=== PATIENT | male | born 1945 | race Caucasian/White ===

== ENCOUNTER → 2022-10-11 08:32 | Outpatient (BNVA) | payer MEDICARE, OTHER, SELFPAY | PROVIDERS: Visit Provider Nurse Practitioner | DX: Z85.038 Personal history of other malignant neoplasm of large intestine (principal) | CPT/HCPCS: 99202 ==

== ENCOUNTER → 2022-10-18 10:08 | Outpatient (BNVA) | payer MEDICARE, OTHER, SELFPAY | PROVIDERS: Visit Provider Internal Medicine | DX: J45.909 Unspecified asthma, uncomplicated (principal); R05.9 Cough, unspecified; G47.33 Obstructive sleep apnea (adult) (pediatric) | CPT/HCPCS: 99202 ==

== ENCOUNTER 2022-12-13 08:16 | Outpatient (REF) | payer MEDICARE, OTHER, SELFPAY ==
--- NOTE | 2022-12-13 09:30 | PFT_ITS ---
FLOWS: 1. FEV1 93% of predicted at 2.40 L. 2. FVC 85% of predicted at 3.08 L. 3. FEV1 to FVC ratio of 0.78. 4. No bronchodilator response. LUNG VOLUMES: 1. Total lung capacity 93% of predicted at 5.84 L. 2. Residual volume 108% of predicted at 2.54 L. 3. Slow vital capacity 84% of predicted at 3.31 L. 4. Expiratory reserve volume 78% of predicted at 0.76 L. 5. Diffusion capacity is normal. IMPRESSION: No obstructive or restrictive ventilatory defect. No bronchodilator response. Essentially normal pulmonary function tests. MD EMERSON Saxena/MODL / [phone]
== END 2022-12-13 08:17 | disposition home or self-care (01) ==
LOC: HO.RESP 08:16
PROVIDERS: PCP Internal Medicine; Visit Provider Internal Medicine
DX: J45.909 Unspecified asthma, uncomplicated (principal); G47.33 Obstructive sleep apnea (adult) (pediatric); F03.90 Unspecified dementia, unspecified severity, without behavioral disturbance, psychotic disturbance, mood disturbance, and anxiety; Z79.899 Other long term (current) drug therapy
CPT/HCPCS: 94060; 94727; 94729; 99212

== ENCOUNTER 2022-12-13 09:30 | Outpatient (AMB) | payer MEDICARE, OTHER, SELFPAY ==
[2022-12-13 09:36] VITALS: BP 144/68; PULSE 64; O2SAT 97; BMI 31.3
--- NOTE | 2022-12-13 09:36 | MHC.OFFVIS ---
Intake Vital Signs 12/13/22 09:36 Height 5 ft 6 in Weight 194 lb 0.108 oz BMI 31.3 BP 144/68 H Blood Pressure Location Lt brachial Position Sitting Pulse 64 Pulse Source Pulse Oximeter Pulse Oximetry (%) 97 Oxygen Delivery Method Room Air Intake Visit Reasons: f/u pft Intake Note: Pt reports his dry cough still coming back and [facility] was supposed to fax a paper over for Luis. They also want his PFT faxed over to PCP, Dr. Crowder. Accompanied by: Spouse Allergies No Known Allergies Allergy (Verified 12/13/22 09:46) Medication List - Last Reconciled 12/13/22 by Yusef Bourne MD cetirizine (Zyrtec) 10 mg PO DAILY PRN Flovent HFA 110 mcg/actuation (fluticasone propionate) 2 puffs inhalation BID 30 days NS fluticasone propionate 44 mcg/actuation 2 puffs inhalation BID memantine 10 mg PO BID rivastigmine 4.6 mg transdermal DAILY Do you need a note to return to daycare/school/sports/work: No HPI f/u pft HPI Details 77 years old very pleasant gentleman is here for follow-up for his cough. Thinking that his cough is most probably as an asthma variant, he will os started on Flovent HFA 1102 puffs b.i.d.. He did not get any rescue inhaler. Most of the talk is done by the because the patient has some dementia and stays relatively quiet and smiling. The say is that his frequency off cough is less , but the attacks of cough still come, and he tends to get exhausted with the cough. The cough usually happens the after he is drinking coffee in the morning. The cough is mostly nonproductive. He came to have pulmonary function test this morning and was seen right after that. COUNT INCLUDES THE [facility] Medical History (Updated 12/13/22 @ 10:11 by Yusef Bourne MD) Allergic rhinitis Cough Surgical History H/O colonoscopy H/O right hemicolectomy Social History Alcohol intake: former Patient Tobacco Use Status: Former Tobacco user Review of Systems Const All systems reviewed & are unremarkable except as noted in HPI and below Eyes Reports no additional complaints ENT Reports nasal congestion and Reports nasal discharge (Intermittent) Card Reports no additional complaints Resp Reports cough (Chronic) GI Reports other (History of colon cancer, resected) Reports no additional complaints Musc Reports no additional complaints Skin/Breast Reports system reviewed and no additional complaints, except as documented Neuro Reports memory loss (Mild dementia) Psych Reports no additional complaints and Reports memory loss (Mild dementia) Endo Reports no additional complaints Petey/Lymph Reports no additional complaints Aller/Immun Reports no additional complaints Physical Exam Vital Signs: Last Vital Signs Pulse 64 12/13/22 09:36 BP 144/68 H 12/13/22 09:36 Pulse Ox 97 12/13/22 09:36 Oxygen Delivery Method Room Air 12/13/22 09:36 BMI result Body Mass Index 31.3 Const General: healthy appearing, comfortable, no acute distress, alert and awake Orientation/consciousness: patient oriented x3 HEENT Head: Yes normal to inspection General nose exam: No nasal polyps present and No nasal discharge present Face and sinus: Yes sinuses nontender Mouth: oropharynx abnormals (Oropharynx is somewhat crowded, Mallampati class 3) Throat: Yes posterior oropharynx normal Eyes General: appearance normal, both eyes and all related structures Neck Neck: Yes normal visual inspection, Yes no lymphadenopathy, Yes trachea midline and Yes no JVD Thyroid: Thyroid normal Chest Chest palpation & inspection: normal inspection of the chest, normal palpation of entire chest wall and no tenderness Resp Other: Percussion note resonant, breath sounds are equal on both sides, no wheezes rhonchi or crepitations are heard. Cardio Palpation: normal PMI Rate: regular rate Rhythm: regular rhythm Heart sounds: Gallop heart sound present and Murmur heart sound present Peripheral pulses: Peripheral pulses 2+ throughout GI Palpation (GI): Soft to palpation, Tenderness to palpation present (GI), No hepatosplenomegaly present and Palpable mass present Auscultation: normal bowel sounds Back/Spine/Pelvis Thoracic/Lumbar Spine: thoracic and lumbar spine normal to inspection Skin General skin exam: no rashes or lesions noted Neuro General: patient oriented x3 and no focal motor deficits Cranial nerves: Yes CN's II-XII intact bilaterally Extrem General: Yes normal to inspection, Yes no clubbing, cyanosis or edema and Yes no calf tenderness Psych Speech and movement: Normal speech and movement present Results Reviewed Results Reviewed: Pulmonary function test is essentially normal. No evidence of obstructive restrictive disorder. FEF 25-75 did improve by 22% after BD therapy, indicating mild bronchospastic defect in small airways. Assessment & Plan Assessment & Plan (1) Cough: Comment: CHRONIC EPISODIC COUGH, MOST LIKELY ALLERGIC COUGH, RELATED TO ALLERGIC RHINITIS/POSTNASAL DISCHARGE. ALSO COULD BE SECONDARY TO ASTHMA VARIANT. PULMONARY FUNCTION TEST IS NORMAL. TX : PROAIR HFA 2 PUFFS Q 4-6 HOURS P.R.N. IF THE COUGH IS PERSISTENT. 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 PROAIR 2 PUFFS Q 4-6 HOURS P.R.N. FOR PERSISTENT BOUTS OF COUGH ( PEAK FLOW METER IS PRESCRIBED ) Code(s): J45.909 - Unspecified asthma, uncomplicated (3) Allergic rhinitis: Comment: THIS PATIENT DOES HAVE MILD ALLERGIC RHINITIS, PRESENTING MOSTLY IN THE FORM OF POSTNASAL DISCHARGE. PER HISTORY IT RESPONDS VERY QUICKLY TO ORAL PREDNISONE. DISCUSSED DID THE TREATMENT PLAN AND ENCOURAGED NOT TO USE PREDNISONE TOO OFTEN. TX ; OKAY TO USE ZYRTEC 10 MG AT NIGHT P.R.N., ALSO ADD FLONASE 2 SPRAY IN EACH NOSTRIL DAILY.( ACCORDING TO IT CAUSED SOME STOMACH UPSET, IF SO HE MAY STOP USING FLONASE ) Code(s): J30.9 - Allergic rhinitis, unspecified (4) MICHELE (obstructive sleep apnea): Comment: PATIENT DOES HAVE HISTORY OF MICHELE FOR MANY YEARS BUT HAS BEEN NON COMPLIANT TO THE USE OF CPAP. LATELY HE IS USING IT ON A NIGHTLY BASIS, AT LEAST FOR A FEW HOURS PER NIGHT. CPAP USAGE BEING MANAGED BY THE [facility] [place]. Code(s): G47.33 - Obstructive sleep apnea (adult) (pediatric) Plan: FOR FOLLOW-UP CARE I HAD RECOMMENDED THAT HE COULD CONTINUE TO FOLLOW-UP WITH HIS PRIMARY CARE PHYSICIAN. BUT THE WOULD FEEL MORE COMFORTABLE IF HE IS FOLLOWED UP BY ME FOR PULMONARY ISSUES. SO WE HAVE SET UP AN APPOINTMENT FOR FOLLOW-UP IN 3 MONTHS Medications: New peak flow meter As directed 1 ea 0RF albuterol sulfate 90 mcg/actuation 2 puffs inhalation Q4-6H PRN 8.5 grams 3RF shortness of breath or wheezing 30 days Changed From Flovent HFA 110 mcg/actuation (fluticasone propionate) administer with spacer 2 puffs inhalation BID 30 days 12 grams 3RF ASTHMA NS To Flovent HFA 110 mcg/actuation (fluticasone propionate) administer with spacer 2 puffs inhalation BID 90 days 12 grams 3RF ASTHMA NS Coding Level of Care Code Est Pt Level 3 (39943) Diagnoses Cough R05.9 Asthma J45.909 Allergic rhinitis J30.9 MICHELE (obstructive sleep apnea) G47.33
== END 2022-12-13 10:02 | disposition home or self-care (01) ==
PROVIDERS: PCP Internal Medicine; Visit Provider Internal Medicine
DX: R05.3 Chronic cough (principal)
CPT/HCPCS: 94060; 94727; 94729; 99213

== ENCOUNTER 2023-03-19 08:57 | Outpatient (AMB) | payer MEDICARE, OTHER, SELFPAY ==
--- NOTE | 2023-03-19 09:09 | MHC.OFFVIS ---
Intake Vital Signs 03/19/23 09:10 Height 5 ft 6 in Weight 197 lb BMI 31.8 BP 140/58 H Blood Pressure Location Lt brachial Position Sitting Pulse 71 Pulse Source Pulse Oximeter Pulse Oximetry (%) 98 Oxygen Delivery Method Room Air Intake Visit Reasons: Dyspnea Intake Note: pt is here for follow up and states the witness of shortness of breath, pt is using the cpap everynight.NEEDS 3 MONTH REFILL ON FLOVENT TO [facility] Should they continue the zyrtec? Medical And Scientific Illustrator Required: No Allergies No Known Allergies Allergy (Verified 03/19/23 09:26) Medication List - Last Reconciled 03/19/23 by Yusef Bourne MD albuterol sulfate 90 mcg/actuation 2 puffs inhalation Q4-6H PRN 30 days cetirizine (Zyrtec) 10 mg PO DAILY PRN Flovent HFA 110 mcg/actuation (fluticasone propionate) 2 puffs inhalation BID 90 days NS memantine 10 mg PO BID peak flow meter As directed rivastigmine 9.5 mg transdermal DAILY Do you need a note to return to daycare/school/sports/work: No HPI Dyspnea HPI Details 77 years old gentleman comes along with his . He is very pleasant,, has mild healed dementia, is supported by his . Both are very happy about his health status. He has only occasional bouts of cough and had to use albuterol only bout twice in the last 4 months. He uses Flovent-1102 puffs b.i.d. with the help of his spacer and it has made it much easier. Luckily he has had no acute respiratory infection. Nasal congestion off and on, mild, and citrus in 10 mg on a p.r.n. basis is helping. He uses CPAP very regularly every night and sleeps good. [facility] Medical History Allergic rhinitis Cough Surgical History H/O colonoscopy H/O right hemicolectomy Social History Alcohol intake: former Patient Tobacco Use Status: Former Tobacco user Review of Systems Const All systems reviewed & are unremarkable except as noted in HPI and below Eyes Reports no additional complaints ENT Reports nasal congestion and Reports nasal discharge (Intermittent) Card Reports no additional complaints Resp Reports cough (Chronic) GI Reports other (History of colon cancer, resected) Reports no additional complaints Musc Reports no additional complaints Skin/Breast Reports system reviewed and no additional complaints, except as documented Neuro Reports memory loss (Mild dementia) Psych Reports no additional complaints and Reports memory loss (Mild dementia) Endo Reports no additional complaints Petey/Lymph Reports no additional complaints Aller/Immun Reports no additional complaints Physical Exam Vital Signs: Last Vital Signs Pulse 71 03/19/23 09:10 BP 140/58 H 03/19/23 09:10 Pulse Ox 98 03/19/23 09:10 Oxygen Delivery Method Room Air 03/19/23 09:10 BMI result Body Mass Index 31.8 Const General: healthy appearing, comfortable, no acute distress, alert and awake Orientation/consciousness: patient oriented x3 HEENT Head: Yes normal to inspection General nose exam: No nasal polyps present and No nasal discharge present Face and sinus: Yes sinuses nontender Mouth: oropharynx abnormals (Oropharynx is somewhat crowded, Mallampati class 3) Throat: Yes posterior oropharynx normal Eyes General: appearance normal, both eyes and all related structures Neck Neck: Yes normal visual inspection, Yes no lymphadenopathy, Yes trachea midline and Yes no JVD Thyroid: Thyroid normal Chest Chest palpation & inspection: normal inspection of the chest, normal palpation of entire chest wall and no tenderness Resp Other: Percussion note resonant, breath sounds are equal on both sides, no wheezes rhonchi or crepitations are heard. Cardio Palpation: normal PMI Rate: regular rate Rhythm: regular rhythm Heart sounds: Gallop heart sound present and Murmur heart sound present Peripheral pulses: Peripheral pulses 2+ throughout GI Palpation (GI): Soft to palpation, Tenderness to palpation present (GI), No hepatosplenomegaly present and Palpable mass present Auscultation: normal bowel sounds Back/Spine/Pelvis Thoracic/Lumbar Spine: thoracic and lumbar spine normal to inspection Skin General skin exam: no rashes or lesions noted Neuro General: patient oriented x3 and no focal motor deficits Cranial nerves: Yes CN's II-XII intact bilaterally Extrem General: Yes normal to inspection, Yes no clubbing, cyanosis or edema and Yes no calf tenderness Psych Speech and movement: Normal speech and movement present Assessment & Plan Assessment & Plan (1) Asthma: Comment: THE CHRONIC COUGH IS MOST LIKELY ASTHMA VARIANT, [place] FLOVENT,-110 2 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 PROAIR 2 PUFFS Q 4-6 HOURS P.R.N. FOR PERSISTENT BOUTS OF COUGH Code(s): J45.909 - Unspecified asthma, uncomplicated Plan: ABOVE (2) MICHELE (obstructive sleep apnea): Comment: PATIENT DOES HAVE HISTORY OF MICHELE FOR MANY YEARS BUT HAS BEEN NON COMPLIANT TO THE USE OF CPAP. LATELY HE IS USING IT ON A REGULAR BASIS. HE IS BEING FOLLOWED BY [facility], FOR MANAGEMENT OF HIS CPAP. Code(s): G47.33 - Obstructive sleep apnea (adult) (pediatric) Plan: ABOVE (3) Allergic rhinitis: Comment: THIS PATIENT DOES HAVE MILD ALLERGIC RHINITIS, PRESENTING MOSTLY IN THE FORM OF POSTNASAL DISCHARGE. IT SEEMS TO BE WELL CONTROLLED WITH THE USE OF CETIRIZINE 10 MG P.R.N.. Code(s): J30.9 - Allergic rhinitis, unspecified Plan: ABOVE Medications: Refilled Flovent HFA 110 mcg/actuation (fluticasone propionate) administer with spacer 2 puffs inhalation BID 12 grams 3RF ASTHMA 90 days NS Coding Level of Care Code Est Pt Level 3 (88981) Diagnoses Asthma J45.909 MICHELE (obstructive sleep apnea) G47.33 Allergic rhinitis J30.9
[2023-03-19 09:10] VITALS: BP 140/58; PULSE 71; O2SAT 98; BMI 31.8
== END 2023-03-19 09:29 | disposition home or self-care (01) ==
PROVIDERS: PCP Internal Medicine; Visit Provider Internal Medicine
DX: J45.909 Unspecified asthma, uncomplicated (principal); G47.33 Obstructive sleep apnea (adult) (pediatric); J30.9 Allergic rhinitis, unspecified
CPT/HCPCS: 99213

== ENCOUNTER → 2023-03-19 08:57 | Outpatient (BNVA) | payer MEDICARE, OTHER, SELFPAY | PROVIDERS: PCP Internal Medicine; Visit Provider Internal Medicine | DX: J45.909 Unspecified asthma, uncomplicated (principal); G47.33 Obstructive sleep apnea (adult) (pediatric) | CPT/HCPCS: 99212 ==

== ENCOUNTER 2023-04-24 10:18 | Outpatient (AMB) | payer MEDICARE, OTHER, SELFPAY ==
[2023-04-24 10:30] VITALS: BP 140/78; PULSE 81; O2SAT 98; BMI 30.7
--- NOTE | 2023-04-24 10:30 | A.OFFVIS_ITS ---
Intake Vital Signs 04/24/23 10:30 Height 5 ft 6 in Weight 190 lb BMI 30.7 BP 140/78 H Blood Pressure Location Lt brachial Position Sitting Pulse 81 Pulse Source Pulse Oximeter Pulse Oximetry (%) 98 Oxygen Delivery Method Room Air Intake Visit Reasons: Cough [employer] Department Manager Required: No Accompanied by: Spouse Allergies No Known Allergies Allergy (Verified 04/24/23 10:37) Medication List - Last Reconciled 04/24/23 by Lakisha Pollock LPN albuterol sulfate 90 mcg/actuation 2 puffs inhalation Q4-6H PRN 30 days cetirizine (Zyrtec) 10 mg PO DAILY PRN Flovent HFA 110 mcg/actuation (fluticasone propionate) 2 puffs inhalation BID 90 days NS memantine 10 mg PO BID peak flow meter As directed rivastigmine 9.5 mg transdermal DAILY HPI Cough HPI Details Luis is a pleasant 77 year old male, former smoker with underlying asthma, allergic rhinitis, MICHELE on CPAP and mild dementia. At baseline, he is suboptimally controlled on Flovent and zyrtec, requiring albuterol infrequently. Today he presents for an acute visit. He is currently finishing a course of amoxicillin prescribed by urgent care for strep pharyngitis. His reports over the last few weeks he has had increased urinary frequency, decreased appetite, weight loss, and malaise. He was evaluated by PCP who reportedly stated amoxicilin should cover UTI. She also reports a persistent dry cough that is easily triggered by irritants. He denies any fevers or chills. He denies any chest congestion, chest tightness or wheezing. [facility] Medical History Allergic rhinitis Cough Surgical History H/O colonoscopy H/O right hemicolectomy Social History (Updated 04/24/23 @ 10:41 by Lakisha Pollock LPN) Alcohol intake: former Patient Tobacco Use Status: Former Tobacco user Tobacco use type: Cigarette Review of Systems Const Denies chills, Denies excessive sweating, Denies fever(s), Denies headache(s) and Denies night sweats Eyes Denies dry eyes, Denies irritation and Denies itchy eyes ENT Reports Normal hearing present, Denies headache(s), Denies nasal congestion, Denies nasal discharge, Reports post nasal drip and Denies sore throat Card Denies chest pain, Denies chest pain at rest, Denies chest pain with activity, Denies claudication, Denies leg edema, Denies dyspnea, Denies dyspnea on exertion, Denies orthopnea and Denies paroxysmal nocturnal dyspnea Resp Denies chest congestion, Reports cough, Denies excessive phlegm production, Denies pain on inspiration, Denies pain with cough, Denies dyspnea, Denies dyspnea on exertion, Denies stridor and Denies wheezing Musc Denies myalgias Neuro Reports Normal hearing present and Denies headache(s) Endo Denies excessive sweating Petey/Lymph Denies lymphadenopathy Aller/Immun Denies itchy eyes, Denies seasonal rhinorrhea and Denies wheezing Physical Exam Vital Signs: Last Vital Signs Pulse 81 04/24/23 10:30 BP 140/78 H 04/24/23 10:30 Pulse Ox 98 04/24/23 10:30 Oxygen Delivery Method Room Air 04/24/23 10:30 BMI result Body Mass Index 30.7 Const General: cooperative, healthy appearing, comfortable, no acute distress, well developed and alert Orientation/consciousness: patient oriented x3 HEENT Head: Yes normal to inspection, Yes normocephalic and Yes atraumatic Ears: hearing grossly normal bilaterally and external ears normal Eyes General: appearance normal, both eyes and all related structures Eyelids: Yes eyelids normal Sclerae: sclerae normal EOM: EOMs intact bilaterally Neck Neck: Yes normal visual inspection and Yes no lymphadenopathy Lymphatic: no lymphadenopathy noted Chest Chest palpation & inspection: normal inspection of the chest Resp Effort & Inspection: normal respiratory effort, able to speak in complete sentences, no audible wheezes, no cough, no stridor, not tachypneic, no tripod positioning and no use of accessory muscles Auscultation: clear to auscultation bilaterally Cardio Jugular venous distension: no JVD Rate: regular rate Rhythm: regular rhythm Skin Other: warm, dry General skin exam: no rashes or lesions noted Neuro General: patient oriented x3 Cranial nerves: Yes Normal hearing present Cognition (Neuro): normal cognition Gait exam (Neuro): Normal gait present Extrem General: Yes normal to inspection, Yes capillary refill normal, Yes no clubbing, cyanosis or edema and Yes no pedal edema Psych Appearance: grossly normal and well kempt Speech and movement: Normal speech and movement present and Clear speech present Affect: normal affect Attitude: cooperative Thought process: Normal thought process present Thought content: Normal thought content present Insight: Good insight present (Psych) Judgement: Good judgement present (Psych) Assessment & Plan Assessment & Plan (1) Cough: 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 PROAIR 2 PUFFS Q 4-6 HOURS P.R.N. FOR PERSISTENT BOUTS OF COUGH Code(s): J45.909 - Unspecified asthma, uncomplicated (3) MICHELE (obstructive sleep apnea): Code(s): G47.33 - Obstructive sleep apnea (adult) (pediatric) (4) Allergic rhinitis: Code(s): J30.9 - Allergic rhinitis, unspecified Plan Luis presents with a chronic cough that seems to be increasing in frequency. Will change Flovent to Advair, obtain CXR and CBC. In regards to other symptoms, discussed possibility of UTI, which she has a consultation with a urologist this and will review. All questions were answered and patient is in agreement of plan. Will follow up with Dr. Bourne for regularly scheduled appointment or sooner if needed. Orders: Orders Complete Blood Count Auto Diff Today R05.9 - Cough, unspecified XR chest 2V Today R05.9 - Cough, unspecified SARS-CoV2/FLU/RSV Today R05.9 - Cough, unspecified Medications: New fluticasone propion-salmeterol 115-21 mcg/actuation (Advair HFA) 2 puffs inhalation Q12H 1 ea 3RF Coding Level of Care Code Est Pt Level 4 (44680) Diagnoses Cough R05.9 Asthma J45.909 MICHELE (obstructive sleep apnea) G47.33 Allergic rhinitis J30.9
== END 2023-04-24 11:30 | disposition home or self-care (01) ==
PROVIDERS: PCP Internal Medicine; Visit Provider Nurse Practitioner Family
DX: R05.9 Cough, unspecified (principal); J45.909 Unspecified asthma, uncomplicated; G47.33 Obstructive sleep apnea (adult) (pediatric); J30.9 Allergic rhinitis, unspecified
CPT/HCPCS: 99214

== ENCOUNTER → 2023-04-24 10:18 | Outpatient (BNVA) | payer MEDICARE, OTHER, SELFPAY | PROVIDERS: PCP Internal Medicine; Visit Provider Nurse Practitioner Family | DX: R05.9 Cough, unspecified (principal); J45.909 Unspecified asthma, uncomplicated; G47.33 Obstructive sleep apnea (adult) (pediatric) | CPT/HCPCS: 0241U; 36415; 85025; 99212 ==

== ENCOUNTER 2023-04-24 11:28 | Outpatient (REF) | payer MEDICARE, OTHER, SELFPAY ==
[2023-04-24 13:58] LABS: MANUAL DIFF FLAG NO
[2023-04-24 14:07] LABS: Basophils Percent Auto 0.2 % (0-2); Eosinophils Absolute Auto 0.2 X10*3/uL (0.0-0.4); Eosinophils Percent Auto 1.1 % (0-4); Hematocrit 39.7 % (42.0-52.0); Hemoglobin 12.2 g/dl (14.0-18.0); Imm Gran Abs Auto 0.19 X10*3/uL (0.00-0.03); Imm Gran Pct Auto 0.9 % (0.0-0.4); Lymphocytes Absolute Auto 2.6 X10*3/uL (1.2-4.9); Lymphocytes Percent Auto 12.5 % (20-40); Mean Corpuscular HGB Conc 30.7 g/dl (31.0-36.0); Mean Corpuscular Hemoglobin 25.7 pg (27.0-33.0); Mean Corpuscular Volume 83.8 fL (80.0-98.0); Mean Platelet Volume 10.6 fL (9.4-12.4); Monocytes Absolute Auto 0.5 X10*3/uL (0.1-1.2); Monocytes Percent Auto 2.6 % (2-11); Neutrophils Absolute Auto 17.3 x10*3/uL (2.0-8.3); Neutrophils Percent Auto 82.7 % (45-73); Platelet Count 526 X10*3/uL (160-400); Red Blood Count 4.74 X10*6/uL (4.60-5.80); Red Cell Distribution Width 14.4 % (11.0-16.0); White Blood Count 20.9 X10*3/uL (4.8-10.8)
[2023-04-24 15:35] LABS: Influenza A PCR NEGATIVE (Negative); Influenza B PCR NEGATIVE (Negative); Resp Syncy Virus RNA Qual PCR NEGATIVE (Negative); SARS COV2 PCR INHOUSE NEGATIVE (Negative)
== END 2023-04-24 11:29 | disposition home or self-care (01) ==
LOC: HO.WFDLDS 11:28
PROVIDERS: Visit Provider Nurse Practitioner Family
DX: Z13.89 Encounter for screening for other disorder (principal)
CPT/HCPCS: 0241U; 36415; 85025

== ENCOUNTER 2023-06-05 13:01 | Outpatient (AMB) | payer MEDICARE, OTHER, SELFPAY ==
[2023-06-05 13:10] VITALS: BP 102/68; PULSE 105; O2SAT 97; BMI 30.2
--- NOTE | 2023-06-05 13:10 | MHC.OFFVIS ---
Intake Vital Signs 06/05/23 13:10 Height 5 ft 6 in Weight 187 lb 6.287 oz BMI 30.2 BP 102/68 Blood Pressure Location Lt brachial Position Sitting Pulse 105 H Pulse Source Pulse Oximeter Pulse Oximetry (%) 97 Oxygen Delivery Method Room Air Intake Visit Reasons: cough Intake Note: pt is here for sick visit for a cough that sounds phlegmy but nothing comes up, energy level, appetite is going down, drinking fluids will bring on the cough. 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 mask (Procare Spacer With Child Mask) As directed, size to fit patient memantine 10 mg PO BID peak flow meter As directed rivastigmine 9.5 mg transdermal DAILY Do you need a note to return to daycare/school/sports/work: No HPI cough HPI Details This 77 years old gentleman,[place] war , is a case of chronic cough due to reactive airways/copd, obstructive sleep apnea, and some degree of dementia. Is main complaint is recurrent bouts of cough, and even with using the inhalers he still gets very frequent bouts. He has hard time in expectorating the mucus. During the day he walks around okay without getting much short of breath. He has sleep apnea which is controlled with using CPAP, that is being managed by the [place] outpatient, respiratory service. COUNT INCLUDES THE [facility] Medical History Allergic rhinitis Cough Surgical History H/O colonoscopy H/O right hemicolectomy Social History Alcohol intake: former Patient Tobacco Use Status: Former Tobacco user Tobacco use type: Cigarette Review of Systems Const All systems reviewed & are unremarkable except as noted in HPI and below Eyes Reports no additional complaints ENT Reports nasal congestion and Reports nasal discharge (Intermittent) Card Reports no additional complaints Resp Reports cough (Chronic) GI Reports other (History of colon cancer, resected) Reports no additional complaints Musc Reports no additional complaints Skin/Breast Reports system reviewed and no additional complaints, except as documented Neuro Reports memory loss (Mild dementia) Psych Reports no additional complaints and Reports memory loss (Mild dementia) Endo Reports no additional complaints Petey/Lymph Reports no additional complaints Aller/Immun Reports no additional complaints Physical Exam Vital Signs: Last Vital Signs Pulse 105 H 06/05/23 13:10 BP 102/68 06/05/23 13:10 Pulse Ox 97 06/05/23 13:10 Oxygen Delivery Method Room Air 06/05/23 13:10 BMI result Body Mass Index 30.2 Const General: healthy appearing, comfortable, no acute distress, alert and awake Orientation/consciousness: patient oriented x3 HEENT Head: Yes normal to inspection General nose exam: No nasal polyps present and No nasal discharge present Face and sinus: Yes sinuses nontender Mouth: oropharynx abnormals (Oropharynx is somewhat crowded, Mallampati class 3) Throat: Yes posterior oropharynx normal Eyes General: appearance normal, both eyes and all related structures Neck Neck: Yes normal visual inspection, Yes no lymphadenopathy, Yes trachea midline and Yes no JVD Thyroid: Thyroid normal Chest Chest palpation & inspection: normal inspection of the chest, normal palpation of entire chest wall and no tenderness Resp Other: Percussion note resonant, breath sounds are equal on both sides, no wheezes rhonchi or crepitations are heard. Cardio Palpation: normal PMI Rate: regular rate Rhythm: regular rhythm Heart sounds: Gallop heart sound present and Murmur heart sound present Peripheral pulses: Peripheral pulses 2+ throughout GI Palpation (GI): Soft to palpation, Tenderness to palpation present (GI), No hepatosplenomegaly present and Palpable mass present Auscultation: normal bowel sounds Back/Spine/Pelvis Thoracic/Lumbar Spine: thoracic and lumbar spine normal to inspection Skin General skin exam: no rashes or lesions noted Neuro General: patient oriented x3 and no focal motor deficits Cranial nerves: Yes CN's II-XII intact bilaterally Extrem General: Yes normal to inspection, Yes no clubbing, cyanosis or edema and Yes no calf tenderness Psych Speech and movement: Normal speech and movement present Assessment & Plan Assessment & Plan (1) Asthma: Comment: THE CHRONIC COUGH IS MOST LIKELY ASTHMA VARIANT, CURRENT REGIMEN IS NOT CONTROL HIS COUGH. Code(s): J45.909 - Unspecified asthma, uncomplicated Plan: [place] FLUTICASONE-SALMETEROL 230-21 2 PUFFS B.I.D. ALBUTEROL HFA 2 PUFFS Q 4-6 HOURS P.R.N.. USE THE SPACING DEVICE FOR THE INHALERS. (2) MICHELE (obstructive sleep apnea): Comment: HE DOES HAVE CHRONIC OBSTRUCTIVE. SLEEP APNEA WHICH IS CONTROLLED WITH USE OF CPAP Code(s): G47.33 - Obstructive sleep apnea (adult) (pediatric) Plan: PATIENT IS BEING FOLLOWED BY [facility]PATIENT [facility] (3) Cough: Comment: VERY FREQUENT BOUTS OF COUGH, WORSE THAN BEFORE. I THINK THIS IS DUE TO ASTHMA/COPD, WOOD BURNING FOR HEATING IS ALSO A CONTRIBUTING FACTOR. DRY AIR ANOTHER CONTRIBUTING FACTOR. Code(s): R05.9 - Cough, unspecified Plan: HUMIDIFICATION IN THE HOUSE. MAY USE COUGH DROPS NEEDED. (4) Allergic rhinitis: Comment: HIS COUGH MAY ALSO BE CONTRIBUTED BY NASAL ALLERGY. Code(s): J30.9 - Allergic rhinitis, unspecified Plan: CETIRIZINE 10 MG DAILY P.R.N. IS ADVISED Coding Level of Care Code Est Pt Level 3 (92870) Diagnoses Asthma J45.909 MICHELE (obstructive sleep apnea) G47.33 Cough R05.9 Allergic rhinitis J30.9
== END 2023-06-05 13:44 | disposition home or self-care (01) ==
PROVIDERS: PCP Internal Medicine; Visit Provider Internal Medicine
DX: J45.909 Unspecified asthma, uncomplicated (principal); G47.33 Obstructive sleep apnea (adult) (pediatric); R05.9 Cough, unspecified; J30.9 Allergic rhinitis, unspecified
CPT/HCPCS: 99213

== ENCOUNTER → 2023-06-05 13:01 | Outpatient (BNVA) | payer MEDICARE, OTHER, SELFPAY | PROVIDERS: PCP Internal Medicine; Visit Provider Internal Medicine | DX: J45.909 Unspecified asthma, uncomplicated (principal); G47.33 Obstructive sleep apnea (adult) (pediatric); R05.9 Cough, unspecified | CPT/HCPCS: 99212 ==

== ENCOUNTER 2023-08-06 09:24 | Outpatient (AMB) | payer MEDICARE, OTHER, SELFPAY ==
[2023-08-06 09:56] VITALS: BP 112/58; PULSE 77; O2SAT 97; BMI 30.6
--- NOTE | 2023-08-06 09:56 | A.OFFVIS_ITS ---
Vital Signs 08/06/23 09:56 Height 5 ft 6 in Weight 189 lb 9.561 oz BMI 30.6 BP 112/58 L Blood Pressure Location Lt brachial Position Sitting Pulse 77 Pulse Source Pulse Oximeter Pulse Oximetry (%) 97 Oxygen Delivery Method Room Air Intake Visit Reasons: Cough Intake Note: pt is here for follow up and is now to moderate alzeihmers, Allergies No Known Allergies Allergy (Verified 08/06/23 10:03) Medication List - Last Reconciled 08/06/23 by Yusef Bourne MD albuterol sulfate 90 mcg/actuation 2 puffs inhalation Q4-6H PRN 30 days cetirizine (Zyrtec) 10 mg PO DAILY PRN fluticasone propion-salmeterol 230-21 mcg/actuation (Advair HFA) 2 puffs inhalation Q12H 30 days inhalat.spacing dev,med. mask (Procare Spacer With Child Mask) As directed, size to fit patient memantine 10 mg PO BID peak flow meter As directed rivastigmine 9.5 mg transdermal DAILY Do you need a note to return to daycare/school/sports/work: No HPI HPI Cough: Details: 77 years old gentleman, [place] war , comes after 2 months for follow-up. Is main issue is cough as an asthma variant, Finally the cough is controlled with the use of Advair HFA 230-212 puffs b.i.d.. He has sleep apnea which is being treated with CPAP, followed by [facility], respiratory service. He has developed some dementia, but remains very pleasant. His takes care of the medications mostly. [facility] Medical History Allergic rhinitis Cough Surgical History H/O colonoscopy H/O right hemicolectomy Social History Alcohol intake: former Patient Tobacco Use Status: Former Tobacco user Tobacco use type: Cigarette Review of Systems Const All systems reviewed & are unremarkable except as noted in HPI and below Eyes Reports no additional complaints ENT Reports nasal congestion and Reports nasal discharge (Intermittent) Card Reports no additional complaints Resp Reports cough (Chronic) GI Reports other (History of colon cancer, resected) Reports no additional complaints Musc Reports no additional complaints Skin/Breast Reports system reviewed and no additional complaints, except as documented Neuro Reports memory loss (Mild dementia) Psych Reports no additional complaints and Reports memory loss (Mild dementia) Endo Reports no additional complaints Petey/Lymph Reports no additional complaints Aller/Immun Reports no additional complaints Physical Exam Vital Signs: Last Vital Signs Pulse 77 08/06/23 09:56 BP 112/58 L 08/06/23 09:56 Pulse Ox 97 08/06/23 09:56 Oxygen Delivery Method Room Air 08/06/23 09:56 BMI result Body Mass Index 30.6 Const General: healthy appearing, comfortable, no acute distress, alert and awake Orientation/consciousness: patient oriented x3 HEENT Head: Yes normal to inspection General nose exam: No nasal polyps present and No nasal discharge present Face and sinus: Yes sinuses nontender Mouth: oropharynx abnormals (Oropharynx is somewhat crowded, Mallampati class 3) Throat: Yes posterior oropharynx normal Eyes General: appearance normal, both eyes and all related structures Neck Neck: Yes normal visual inspection, Yes no lymphadenopathy, Yes trachea midline and Yes no JVD Thyroid: Thyroid normal Chest Chest palpation & inspection: normal inspection of the chest, normal palpation of entire chest wall and no tenderness Resp Other: Percussion note resonant, breath sounds are equal on both sides, no wheezes rhonchi or crepitations are heard. Cardio Palpation: normal PMI Rate: regular rate Rhythm: regular rhythm Heart sounds: Gallop heart sound present and Murmur heart sound present Peripheral pulses: Peripheral pulses 2+ throughout GI Palpation (GI): Soft to palpation, Tenderness to palpation present (GI), No hepatosplenomegaly present and Palpable mass present Auscultation: normal bowel sounds Back/Spine/Pelvis Thoracic/Lumbar Spine: thoracic and lumbar spine normal to inspection Skin General skin exam: no rashes or lesions noted Neuro General: patient oriented x3 and no focal motor deficits Cranial nerves: Yes CN's II-XII intact bilaterally Extrem General: Yes normal to inspection, Yes no clubbing, cyanosis or edema and Yes no calf tenderness Psych Speech and movement: Normal speech and movement present Assessment & Plan Assessment & Plan (1) Cough: Comment: COUGH, ASTHMA VARIANT, FINALLY CONTROLLED WITH USE OF FLUTICASONE/SALMETEROL 230-21 2 PUFFS B.I.D.. HE IS USING THE HFA WITH THE HELP OF A SPACING DEVICE . AND WORKS WELL HE HAS NOT USED ANY RESCUE INHALER FOR A WHILE. Code(s): R05.9 - Cough, unspecified Category: Medical Plan: CONTINUE THE SAME MEDICATION (2) Allergic rhinitis: Comment: HIS COUGH MAY ALSO BE CONTRIBUTED BY NASAL ALLERGY. Code(s): J30.9 - Allergic rhinitis, unspecified Category: Medical Plan: ZYRTEC 10 MG ONCE A DAY P.R.N. (3) Asthma: Comment: THE CHRONIC COUGH IS MOST LIKELY ASTHMA VARIANT, CONTROLLED WITH CURRENT MEDICINE NOTED ABOVE UNDER COUGH. Code(s): J45.909 - Unspecified asthma, uncomplicated Category: Medical Plan: CONTINUE TO USE FLUTICASONE-SALMETEROL 230-212 PUFFS B.I.D.. USE ALBUTEROL 2 PUFFS Q 4-6 HOURS ONLY P.R.N. IF THERE IS PERSISTENT COUGH. (4) MICHELE (obstructive sleep apnea): Comment: HE DOES HAVE CHRONIC OBSTRUCTIVE. SLEEP APNEA WHICH IS CONTROLLED WITH USE OF CPAP Code(s): G47.33 - Obstructive sleep apnea (adult) (pediatric) Category: Medical Plan: CONTINUE TO FOLLOW-UP WITH [facility]
== END 2023-08-06 10:14 | disposition home or self-care (01) ==
PROVIDERS: PCP Internal Medicine; Visit Provider Internal Medicine
DX: R05.9 Cough, unspecified (principal); J30.9 Allergic rhinitis, unspecified; J45.909 Unspecified asthma, uncomplicated; G47.33 Obstructive sleep apnea (adult) (pediatric)
CPT/HCPCS: 99213

== ENCOUNTER → 2023-08-06 09:24 | Outpatient (BNVA) | payer MEDICARE, OTHER, SELFPAY | PROVIDERS: PCP Internal Medicine; Visit Provider Internal Medicine | DX: R05.9 Cough, unspecified (principal); J45.909 Unspecified asthma, uncomplicated; G47.33 Obstructive sleep apnea (adult) (pediatric) | CPT/HCPCS: 99212 ==

== ENCOUNTER 2023-12-10 09:27 | Outpatient (AMB) | payer MEDICARE, OTHER, SELFPAY ==
[2023-12-10 09:53] VITALS: BP 102/58; PULSE 77; O2SAT 95; BMI 32.0
--- NOTE | 2023-12-10 09:53 | A.OFFVIS_ITS ---
Vital Signs 12/10/23 09:53 Height 5 ft 6 in Weight 198 lb BMI 32.0 BP 102/58 L Blood Pressure Location Lt brachial Position Sitting Pulse 77 Pulse Source Pulse Oximeter Pulse Oximetry (%) 95 Oxygen Delivery Method Room Air Intake Visit Reasons: Cough Intake Note: pt is here for follow up and states he has had quite summer going on, put on prednisone for elevated wbc and still working up why. Manager Real Estate Required: No Allergies No Known Allergies Allergy (Verified 12/10/23 10:15) Medication List - Last Reconciled 12/10/23 by Yusef Bourne MD albuterol sulfate 90 mcg/actuation 2 puffs inhalation Q4-6H PRN 30 days cetirizine (Zyrtec) 10 mg PO DAILY PRN fluticasone propion-salmeterol 230-21 mcg/actuation 2 puffs PO BID 90 days inhalat.spacing dev,med. mask (Procare Spacer With Child Mask) As directed, size to fit patient memantine 10 mg PO BID peak flow meter As directed prednisone mg PO rivastigmine 9.5 mg transdermal DAILY Do you need a note to return to daycare/school/sports/work: No HPI HPI Cough: Details: Luis is 78 years old , comes back for, follow-up after 4 months mainly for his problem of cough considered to be secondary to asthma variant. Luis is very pleasant, somewhat forgetful and the looks after his care , tells me that during the past few months he has been admitted a few times in the hospital, for elevated white cell count, but not related to his breathing disorder. Finally he was referred to a housing management officer who has put him on prednisone off and on .( may be for inflammatory muscul ar disease) As far as cough is concerned it has been only minimal, No wheezing attacks and he does not experience any dyspnea on walking around. he has been using fluticasone-salmeter ol 230-21 2 inhalations b.i.d.. He also has mild intermittent nasal congestion depending upon the change in weather and he uses Zyrtec 10 mg once a day only p.r.n.. COUNTS INCLUDE 234 BEDS AT THE [facility] Medical History Allergic rhinitis Cough Surgical History H/O colonoscopy H/O right hemicolectomy Social History Alcohol intake: former Patient Tobacco Use Status: Former Tobacco user Tobacco use type: Cigarette Review of Systems Const All systems reviewed & are unremarkable except as noted in HPI and below Eyes Reports no additional complaints ENT Reports nasal congestion and Reports nasal discharge (Intermittent) Card Reports no additional complaints Resp Reports cough (Chronic) GI Reports other (History of colon cancer, resected) Reports no additional complaints Musc Reports no additional complaints Skin/Breast Reports system reviewed and no additional complaints, except as documented Neuro Reports memory loss (Mild dementia) Psych Reports no additional complaints and Reports memory loss (Mild dementia) Endo Reports no additional complaints Petey/Lymph Reports no additional complaints Aller/Immun Reports no additional complaints Physical Exam Const General: healthy appearing, comfortable, no acute distress, alert and awake Orientation/consciousness: patient oriented x3 HEENT Head: Yes normal to inspection General nose exam: No nasal polyps present, mucous membranes and turbinates abnormal ( nasal turbinates are moderately hypertrophied without sig . obstruction), No nasal discharge present and Abnormal mucous membranes and turbinates present Face and sinus: Yes sinuses nontender Mouth: oropharynx abnormals (Oropharynx is somewhat crowded, Mallampati class 3) Throat: Yes posterior oropharynx normal Eyes General: appearance normal, both eyes and all related structures Neck Neck: Yes normal visual inspection, Yes no lymphadenopathy, Yes trachea midline and Yes no JVD Thyroid: Thyroid normal Chest Chest palpation & inspection: normal inspection of the chest, normal palpation of entire chest wall and no tenderness Resp Other: Percussion note resonant, breath sounds are equal on both sides, no wheezes rhonchi or crepitations are heard. Cardio Palpation: normal PMI Rate: regular rate Rhythm: regular rhythm Heart sounds: Gallop heart sound present and Murmur heart sound present Peripheral pulses: Peripheral pulses 2+ throughout GI Palpation (GI): Soft to palpation, Tenderness to palpation present (GI), No hepatosplenomegaly present and Palpable mass present Auscultation: normal bowel sounds Back/Spine/Pelvis Thoracic/Lumbar Spine: thoracic and lumbar spine normal to inspection Skin General skin exam: no rashes or lesions noted Neuro General: patient oriented x3 and no focal motor deficits Cranial nerves: Yes CN's II-XII intact bilaterally Extrem General: Yes normal to inspection, Yes no clubbing, cyanosis or edema and Yes no calf tenderness Psych Speech and movement: Normal speech and movement present Assessment & Plan Assessment & Plan (1) Asthma: Comment: THE CHRONIC COUGH IS MOST LIKELY ASTHMA VARIANT, CONTROLLED WITH CURRENT MEDICINE. Code(s): J45.909 - Unspecified asthma, uncomplicated Category: Medical Plan: Fluticasone-salmeterol does reduced to 115-21 2 puffs b.i.d. Albuterol HFA 2 puffs Q 4-6 hours p.r.n. for sustained bouts of cough or wheezing (2) Allergic rhinitis: Comment: HIS COUGH MAY ALSO BE CONTRIBUTED BY NASAL ALLERGY. Aat present there is no active rhinitis. he does have moderate hypertrophy of the turbinates but not any significant nasal obstruction Code(s): J30.9 - Allergic rhinitis, unspecified Category: Medical Plan: may use Zyrtec 10 mg only p.r.n. (3) Cough: Comment: COUGH, ASTHMA VARIANT,CONTROLLED WITH USE OF FLUTICASONE/SALMETEROL . DOES IS REDUCED TO 115-21 2 PUFFS B.I.D.. HE IS USING THE HFA WITH THE HELP OF A SPACING DEVICE AND WORKS WELL . Code(s): R05.9 - Cough, unspecified Category: Medical Plan: UNDER ASTHMA (4) MICHELE (obstructive sleep apnea): Comment: HE DOES HAVE CHRONIC OBSTRUCTIVE. SLEEP APNEA WHICH IS CONTROLLED WITH USE OF CPAP Code(s): G47.33 - Obstructive sleep apnea (adult) (pediatric) Category: Medical Plan: FOR MICHELE AND CPAP USAGE PATIENT IS FOLLOWED AT [facility]. Medications: New fluticasone propion-salmeterol 115-21 mcg/actuation 2 puffs inhalation BID 90 days 12 grams 3RF ASTHMA VARIENT Coding Level of Care Code Est Pt Level 3 (65378) Diagnoses Asthma J45.909 Allergic rhinitis J30.9 Cough R05.9 MICHELE (obstructive sleep apnea) G47.33
== END 2023-12-10 10:16 | disposition home or self-care (01) ==
PROVIDERS: PCP Internal Medicine; Visit Provider Internal Medicine
DX: J45.909 Unspecified asthma, uncomplicated (principal); J30.9 Allergic rhinitis, unspecified; R05.9 Cough, unspecified; G47.33 Obstructive sleep apnea (adult) (pediatric)
CPT/HCPCS: 99213

== ENCOUNTER → 2023-12-10 09:27 | Outpatient (BNVA) | payer MEDICARE, OTHER, SELFPAY | PROVIDERS: PCP Internal Medicine; Visit Provider Internal Medicine | DX: R05.9 Cough, unspecified (principal); J45.909 Unspecified asthma, uncomplicated; G47.33 Obstructive sleep apnea (adult) (pediatric); Z79.52 Long term (current) use of systemic steroids | CPT/HCPCS: 99212 ==

== ENCOUNTER 2024-08-12 09:18 | Outpatient (AMB) | payer MEDICARE, OTHER, SELFPAY ==
[2024-08-12 09:43] VITALS: BP 120/68; PULSE 59; O2SAT 97; BMI 35.4
--- NOTE | 2024-08-12 09:43 | A.OFFVIS_ITS ---
Vital Signs 08/12/24 09:43 Height 5 ft 6 in Weight 219 lb 5.759 oz BMI 35.4 BP 120/68 Blood Pressure Location Lt brachial Position Sitting Pulse 59 Pulse Source Pulse Oximeter Pulse Oximetry (%) 97 Oxygen Delivery Method Room Air Intake Visit Reasons: cough Intake Note: pt is here for follow up and states he was dx PMR, and states he is doing well. 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 mask (Procare Spacer With Child Mask) As directed, size to fit patient memantine 10 mg PO BID peak flow meter As directed rivastigmine 9.5 mg transdermal DAILY sarilumab (Kevzara) 200 mg subcut Q2W Do you need a note to return to daycare/school/sports/work: No HPI HPI cough: Details: Luis is 78 years old very pleasant gentleman with moderately severe Alzheimer disease, Comes in .for 6 months follow-up He is accompanied by his who answers most of the questions. As far as asthma/COPD is concerned it has been very stable, He is using Advair HFA 2 puffs b.i.d., and needs to use albuterol only once in a while. He does have frequent nasal congestion, due to allergic rhinitis and is controlled with Zyrtec p.r.n.. He is diagnosed to have polymyalgia rheumatica, used to be on prednisone, now being treated with Kevzara ( Sarulimab ) injection q.2 weeks. Luis has put on significant weight , this may be due to lack of activity during winter and also because he was on oral prednisone which has now been stopped. COUNTS INCLUDE 234 BEDS AT THE [facility] Medical History Allergic rhinitis Cough Surgical History H/O colonoscopy H/O right hemicolectomy Social History Alcohol intake: former Patient Tobacco Use Status: Former Tobacco user Tobacco use type: Cigarette Review of Systems Const All systems reviewed & are unremarkable except as noted in HPI and below Eyes Reports no additional complaints ENT Reports nasal congestion and Reports nasal discharge (Intermittent) Card Reports no additional complaints Resp Reports cough (Chronic) GI Reports other (History of colon cancer, resected) Reports no additional complaints Musc Reports no additional complaints Skin/Breast Reports system reviewed and no additional complaints, except as documented Neuro Reports memory loss (Mild dementia) Psych Reports no additional complaints and Reports memory loss (Mild dementia) Endo Reports no additional complaints Petey/Lymph Reports no additional complaints Aller/Immun Reports no additional complaints Physical Exam Vital Signs: Last Vital Signs Pulse 59 08/12/24 09:43 BP 120/68 08/12/24 09:43 Pulse Ox 97 08/12/24 09:43 Oxygen Delivery Method Room Air 08/12/24 09:43 BMI result Body Mass Index 35.4 Const General: healthy appearing, comfortable, no acute distress, alert and awake Orientation/consciousness: patient oriented x3 HEENT Head: Yes normal to inspection General nose exam: No nasal polyps present, mucous membranes and turbinates abnormal ( nasal turbinates are moderately hypertrophied without sig . obstruction), No nasal discharge present and Abnormal mucous membranes and turbinates present Face and sinus: Yes sinuses nontender Mouth: oropharynx abnormals (Oropharynx is somewhat crowded, Mallampati class 3) Throat: Yes posterior oropharynx normal Eyes General: appearance normal, both eyes and all related structures Neck Neck: Yes normal visual inspection, Yes no lymphadenopathy, Yes trachea midline and Yes no JVD Thyroid: Thyroid normal Chest Chest palpation & inspection: normal inspection of the chest, normal palpation of entire chest wall and no tenderness Resp Other: Percussion note resonant, breath sounds are equal on both sides, no wheezes rh onchi or crepitations are heard. Cardio Palpation: normal PMI Rate: regular rate Rhythm: regular rhythm Heart sounds: Gallop heart sound present and Murmur heart sound present Peripheral pulses: Peripheral pulses 2+ throughout GI Palpation (GI): Soft to palpation, Tenderness to palpation present (GI), No hepatosplenomegaly present and Palpable mass present Auscultation: normal bowel sounds Back/Spine/Pelvis Thoracic/Lumbar Spine: thoracic and lumbar spine normal to inspection Skin General skin exam: no rashes or lesions noted Neuro General: patient oriented x3 and no focal motor deficits Cranial nerves: Yes CN's II-XII intact bilaterally Extrem General: Yes normal to inspection, Yes no clubbing, cyanosis or edema and Yes no calf tenderness Psych Speech and movement: Normal speech and movement present Assessment & Plan Assessment & Plan (1) Asthma: Comment: THE CHRONIC COUGH IS MOST LIKELY ASTHMA VARIANT, CONTROLLED WITH CURRENT MEDICINE. ASTHMA/COUGH HAS BEEN FAIRLY STABLE. Code(s): J45.909 - Unspecified asthma, uncomplicated Category: Medical Plan: FLUTICASONE [id number] 115-21 2 PUFFS B.I.D.. ALSO ADVISED THAT LONG SYMPTOMS ARE UNDER CONTROL IT MAY BE CUT DOWN TO 1 PUFF B.I.D.. ALBUTEROL HFA 2 PUFFS Q 6 HOURS ONLY P.R.N. (2) MICHELE (obstructive sleep apnea): Comment: HE DOES HAVE CHRONIC OBSTRUCTIVE. SLEEP APNEA WHICH IS CONTROLLED WITH USE OF CPAP FOR THIS PROBLEM HE IS BEING FOLLOWED UP AT [facility]. Code(s): G47.33 - Obstructive sleep apnea (adult) (pediatric) Category: Medical Plan: CONTINUE USING CPAP EVERY NIGHT (3) Cough: Comment: COUGH, ASTHMA VARIANT,CONTROLLED WITH USE OF FLUTICASONE/SALMETEROL . DOES IS REDUCED TO 115-21 2 PUFFS B.I.D.. HE IS USING THE HFA WITH THE HELP OF A SPACING DEVICE AND WORKS WELL . Code(s): R05.9 - Cough, unspecified Category: Medical Plan: CONTINUE PRESENT TREATMENT. SEE UNDER ASTHMA. (4) Allergic rhinitis: Comment: HIS COUGH MAY ALSO BE CONTRIBUTED BY NASAL ALLERGY. Aat present there is no active rhinitis. he does have moderate hypertrophy of the turbinates but not any significant nasal obstruction Code(s): J30.9 - Allergic rhinitis, unspecified Category: Medical Plan: MAY USE ZYRTEC 10 MG ONCE A DAY P.R.N. Coding Level of Care Code Est Pt Level 3 (76096) Diagnoses Asthma J45.909 MICHELE (obstructive sleep apnea) G47.33 Cough R05.9 Allergic rhinitis J30.9
--- OUTSIDE RECORDS SUMMARY | 2024-08-12 10:09 | XMS_ITS | Encounter Summary ---
Author Organization [facility] Address [address] [facility] 7t [place] [address] Care Team Providers Care Beck Tender Name Role Phone Unavailable Primary Care Provider Unavailabl e Encounter Details Date Type Department Care Team (Latest Contact Info) Description 02/12/2019 [facility] CONVERSIONS Dental, Provider, DDS Social History Tobacco Use Types Packs/Day Years Used Date Smoking Tobacco: Never Assessed Sex and Gender Information Value Date Recorded Sex Assigned at Male 06/23/2022 9:55 AM EST Legal Sex Male 5:35 PM EDT Gender Identity Male 06/23/2022 9:55 AM EST Sexual Orientation Choose not to disclose 2022 9:55 AM EST documented as of this encounter Plan of Treatment Upcoming Encounters Date Type Department Care Team (Late st Contact Info) Description 08/18/2024 9:30 AM EDT Office Visit [facility] DENTAL [address] [place] [address] Ana Bearden LLD [address] [place] [address] 05/07/2025 9:30 AM EST Office Visit [facility] DENTAL [address] [place] [address] Rosalee Henry documented as of this encounter Visit Diagnoses Not on filedocumented in this encounter
--- OUTSIDE RECORDS SUMMARY | 2024-08-12 10:09 | XMS_ITS | Encounter Summary ---
Author Organization [employer] Address [address] [facility] 7t [place] [address] Care Team Providers Care Interlocking Pavement Installer Name Role Phone Unavailable Primary Care Provider Unavailabl e Encounter Details Date Type Department Care Team (Latest Contact Info) Description 06/17/2020 [facility] CONVERSIONS Dental, Provider, DDS Social [...] Description 08/18/2024 9:30 AM EDT Office Visit [facility] DENTAL [address] [place] [address] Ana Bearden LLD [address] [place] [address] 05/07/2025 9:30 AM EST Office Visit [facility] DENTAL [address] [place] [address] Rosalee Henry documented as of this encounter Visit Diagnoses Not on filedocumented in this encounter
--- OUTSIDE RECORDS SUMMARY | 2024-08-12 10:09 | XMS_ITS | Encounter Summary ---
Author Organization [employer] Address [address] [facility] 7t [place] [address] Care Team Providers Care Cutlet Maker Pork Name Role Phone Unavailable Primary Care Provider Unavailabl e Encounter Details Date Type Department Care Team (Latest Contact Info) Description 12/15/2019 [facility] CONVERSIONS Dental, Provider, DDS Social [...] Description 08/18/2024 9:30 AM EDT Office Visit [facility] DENTAL [address] [place] [address] Ana Bearden LLD [address] [place] [address] 05/07/2025 9:30 AM EST Office Visit [facility] DENTAL [address] [place] [address] Rosalee Henry documented as of this encounter Visit Diagnoses Not on filedocumented in this encounter
--- OUTSIDE RECORDS SUMMARY | 2024-08-12 10:09 | XMS_ITS | Encounter Summary ---
Author Name [facility] [place] [facility] [place] [facility] [place] Address [address] [place] [address] Care Team Providers Care Inspector Heating And Refrigeration Name Role Phone MARTINEZ ABBIE Primary Care Provider Unavailabl e Insurance Providers: All historical and current Section Date Range: From patient's date of to the date document was created. This section includes the names of all active insurance providers for the patient. Insurance Provider Type of Coverage Plan Name Start of Policy Coverage End of Policy Coverage Group Number Member ID Insurance Provider's Telephone Number Policy Klein's Name Patient's Relationship to Policy Klein MEDICARE (WNR) MEDICARE () PART A Nov 14, 2012 PART A [id number] [facility] RUELLE,DA VID PATIENT MEDICARE (WNR) MEDICARE () PART B Nov 14, 2012 PART B [id number] [facility] RUELLE,DA VID PATIENT MEDICARE (WNR) MEDICARE () PART A Nov 14, 2012 PART A [id number] [phone] RUELLE,DA VID PATIENT MEDICARE (WNR) MEDICARE () PART B Nov 14, 2012 PART B [id number] RUELLE,DA VID PATIENT MEDICARE (WNR) MEDICARE () PART B Nov 14, 2012 PART B [id number] RUELLE,DA VID PATIENT MEDICARE (WNR) MEDICARE () PART A Nov 14, 2012 PART A [id number] SVETA MOJICA PATIENT FOR LIFE TFL* Nov 14, 2012 [id number] ROLA MOJICA III PATIENT Selected Encounter This section includes the information on record at [place] for the Encounter. Date/Time Encounter Type Encounter Description Reason Provider Source Apr 28, 2024 11:00 AM EAR MOLD/INSERT AUDIOLOGY ICD-10-CM Z46.1 Encounter for fitting and adjustment of hearing aid ADELA LAGUHLIN Encounter Template Text not used by [place] Assessments - Encounter Diagnoses This section includes the primary and secondary diagnoses documented for the Encounter. Date/Time Primary/Secondary Diagnosis Diagnosis Name Provider Source Apr 28, 2024 11:22 AM PRIMARY Encounter for fitting and adjustment of hearing aid ELIZABETH MANSFIELD [facility] Apr 28, 2024 11:22 AM SECONDARY Sensorineural hearing loss, bilateral ELIZABETH MANSFIELD SUMAYA [facility] Plan of Treatment: Future Appointments (+ 6 months) and Future Tests (+/- 45 days) The Plan of Treatment section includes future care activities for the patient from all [place] treatmentfacilities. This section includes future appointments and future orders which are active, pending or scheduled. Future Appointments This section includes appointments that were scheduled to occur 6 months from the date of the Encounter, up to a maximum of 20 appointments. The data comes from all [place] treatment facilities. Appointment Date/Time Appointment Type Appointme nt Facility Name August 20, 2024 09:30 AM AMBULATORY - MEDICINE [facility] Social History: Smoking Status (Most current) and Tobacco Use (All prior to encounter date) This section includes the most current, and the historical, smoking and tobacco- related health factors from the [facility] facility where the Encounter took place. Current Smoking Status This section includes the most current smoking, or tobacco-related health factor, from the VA facility where the Encounter took place. Date/Time Current Smoking Status Comment Facil ity Feb 13, 2024 09:00 AM VA-TOBACCO FORMER USER [facility] Tobacco Use History This section includes a history of the smoking, or tobacco-related health factors, that were collected on or before the date of the Encounter. The data comes from the [place] facility where the Encounter took place. Date/Time Smoking Status/Tobacco Use Comment F acility Feb 13, 2024 09:00 AM VA-TOBACCO QUIT 15 YRS OR MORE [facility] Jan 02, 2022 04:16 PM VA-TOBACCO FORMER USER [facility] Jan 02, 2022 04:16 PM [place]-TO[place]AC[place] QUIT 1 TO < 5 YRS [facility] Advance Directives: All historical and current Section Date Range: From patient's date of to the date document was created. This section includes ALL of a patient's completed or amended [place] Advance and Rescinded Directives. The entries below indicate that a directive exists for the patient, but an actual copy is not included with this document. The data comes from all [place] facilities. Date Advance Directives Provider Source Jun 19, 2007 ADVANCE DIRECTIVE [facility] Encounter Notes: All associated encounter notes This section contains the clinical notes associated to the Encounter. Date/Time Encounter Note(s) Provider Source Apr 28, 2024 07:54 AM AUDIOLOGY NOTE: LOCAL TITLE: AUDIOLOGY [facility] STANDARD TITLE: AUDIOLOGY NOTE DATE OF NOTE: APR 28, 2024@07:54 ENTRY DATE: APR 28, 2024@07:54:29 AUTHOR: CARA MANSFIELD COSIGNER: ADELA LAUGHLIN URGENCY: STATUS: COMPLETED AUDIOLOGY [facility] Has ADDENDA April 28, 2024 History/Background: was seen for a hearing aid follow up, accompanied by his . 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 Both earplugs appeared to fit well. The [place] successfully inserted and removed the earplugs during today's practice session. The [place] reported comfortable fit. Plan: Alerting Dr. Laughlin for follow up. /fabian/ CARA MANSFIELD Audiology [facility] Signed: 04/28/2024 11:22 /fabian/ Vonda SYKES, [facility]-A Head Packager Chief, Audiology Cosigned: 04/28/2024 12:36 04/28/2024 ADDENDUM STATUS: COMPLETED per convo with 's 04/24, a follow up call will be made on 05/20/ Vonda SYKES, CCC-A Head Packager Chief, Audiology Signed: 04/28/2024 12:36 [facility]
--- OUTSIDE RECORDS SUMMARY | 2024-08-12 10:09 | XMS_ITS | Encounter Summary ---
Author Name [facility] [place] [facility] [place] Address [address] [place] [address] Care Team Providers Care Head Miller Name Role Phone ABBIE MARTINEZ Primary Care Provider Unavailabl e Insurance Providers: [...] PART A Nov 14, 2012 PART A [id number] [facility] [place] RUELLE,DA VID PATIENT MEDICARE (WNR) MEDICARE () PART B Nov 14, 2012 PART B [id number] [facility] [place] [phone] RUELLE,DA VID PATIENT MEDICARE (WNR) MEDICARE () PART B Nov 14, 2012 PART B [id number] RUELLE,DA VID PATIENT MEDICARE (WNR) MEDICARE () PART A Nov 14, 2012 PART A [id number] [phone] RUELLE,DA VID PATIENT MEDICARE (WNR) MEDICARE () PART B Nov 14, 2012 PART B [id number] RUELLE,DA VID PATIENT MEDICARE (WNR) MEDICARE () PART A Nov 14, 2012 PART A [id number] SVETA MOJICA PATIENT FOR LIFE TFL* Nov 14, 2012 [id number] ROLA MOJICA III PATIENT Selected Encounter This section includes the information on record at [place] for the Encounter. Date/Time Encounter Type Encounter Description Reason Provider Source Mar 18, 2024 01:00 PM OFF/OP CNSLTJ NEW/EST MOD 40 OTOLARYNGOLOGY/EN T ICD-10-CM H90.3 Sensorineural hearing loss, bilateral LU AVERY IHMaria Fernanda Encounter Template Text not used by [place] Assessments - Encounter Diagnoses This section includes the primary and secondary diagnoses documented for the Encounter. Date/Time Primary/Secondary Diagnosis Diagnosis Name Provider Source Mar 18, 2024 04:45 PM PRIMARY Sensorineural hearing loss, bilateral LU AVERY [facility] [place] [facility] Mar 18, 2024 04:45 PM SECONDARY Tinnitus, bilateral LU AVERY ID [facility] [place] [facility] Plan of Treatment: Future Appointments (+ 6 months) and Future Tests (+/- 45 days) The Plan of Treatment section includes future care activities for the patient from all [place] [facility]. This section includes future appointments and future orders which are active, pending or scheduled. Future Appointments This section includes appointments that were scheduled to occur 6 months from the date of the Encounter, up to a maximum of 20 appointments. The data comes from all [place] treatment facilities. Appointment Date/Time Appointment Type Appointme nt Facility Name Mar 27, 2024 09:00 AM AMBULATORY - REHAB MEDICIN E ID [facility] [place] [facility] Apr 10, 2024 09:30 AM AMBULATORY - MEDICINE ID C [facility] [place] [facility] Apr 18, 2024 11:15 AM AMBULATORY - MEDICINE ID C [facility] [place] [facility] Apr 28, 2024 11:00 AM AMBULATORY - REHAB MEDICIN E [facility] [place] [facility] August 20, 2024 09:30 AM AMBULATORY - MEDICINE [facility] [place] [facility] Vital Signs: All taken on the encounter date This section contains inpatient and outpatient Vital Signs collected on the date of the Encounter. Date/Time Temperature Pulse Blood Pressure Respiratory Rate SP02 Pain Height Weight Body Mass Index Source Mar 18, 2024 01:08 PM 97.6 66 151/76 16 97 0 220 36 [facility] Social History: Smoking Status (Most current) and Tobacco Use (All prior to encounter date) This section includes the most current, and the historical, smoking and tobacco- related health factors from the [place] facility where the Encounter took place. Current Smoking Status This section includes the most current smoking, or tobacco-related health factor, from the [place] facility where the Encounter took place. Date/Time Current Smoking Status Comment Facil ity Feb 13, 2024 09:00 AM [place]-TOBACCO FORMER USER [facility] Tobacco Use History This section includes a history of the smoking, or tobacco-related health factors, that were collected on or before the date of the Encounter. The data comes from the [place] facility where the Encounter took place. Date/Time Smoking Status/Tobacco Use Comment F acility Feb 13, 2024 09:00 AM VA[facility]CO [facility] Jan 02, 2022 04:16 PM VA-TOBACCO FORMER USER [facility] Jan 02, 2022 04:16 PM ID-TOBACCO QUIT 1 TO < 5 YRS [facility] Advance Directives: All historical and current Section Date Range: From patient's date of to the date document was created. This section includes ALL of a patient's completed or amended [place] Advance and Rescinded Directives. The entries below indicate that a directive exists for the patient, but an actual copy is not included with this document. The data comes from all [place] facilities. Date Advance Directives Provider Source Jun 19, 2007 ADVANCE DIRECTIVE [facility] Encounter Notes: All associated encounter notes This section contains the clinical notes associated to the Encounter. 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 His is speaking for him largely because he has significant memory loss having been diagnosed with Alzheimer's 3 years ago. She states that he has very significant sensitivity to noise which has been going on for years but it is worse over the last few years. It is difficult for them to go out almost anywhere because noises and stores can be very disruptive and he will become very emotional. She gives an example where recently they were in [employer] and a pallet fell on the ground and was very loud and he started screaming. She states that even at home if she puts a plate or silverware on the counter in a particular way he might become emotional. He was in [place] and [place], where he states they were always blowing things up . They are not sure if he has any type of PTSD. His becomes emotional and starts to cry saying it is difficult to take him out . He often cannot tolerate wearing his hearing aids because it is simply too loud. He will often wear earplugs. With respect to noise exposure he had significant noise exposure in the to bombs and generators. 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 He was lifelong . He states that he is not sure if he has tinnitus. He does not have vertigo. He has no history of ear infections, no history of ear surgery. No history of head trauma. PMHx: Active problems - Computerized Problem List is the source for the followin. Impaired Fasting Glucose (SCT 292053751) 2. Chronic Rhinitis (SCT 81444289) 3. Somatic dysfunction of lumbar region 4. Exposure to potentially hazardous substance 5. Alzheimer's disease 6. History of colonoscopy 7. Obesity 8. Sleep apnea 9. Prostate specific antigen abnormal 10. Malignant tumor of colon 11. Cortical senile cataract 12. Hyperlipidemia (SNOMED CT 80138461) 13. Peripheral Neuropathy 14. Lumbar Radiculopathy 15. Lateral epicondylitis * 16. Drusen 17. Asthma * 18. Osteoarthrosis involving the knee 19. Hearing loss (SNOMED CT 86286503) 20. Tinnitus (SNOMED CT 82753391) 21. Tinea * Service Connected Disabilities with % Eligibility: SERVICE CONNECTED 50% to 100% VERIFIED Total S/C %: 60 TENDON INFLAMMATION 0% S/C TENDON INFLAMMATION 0% S/C IMPAIRED HEARING 0% S/C PAPULOSQUAMOUS DISORDERS 30% S/C ALLERGIC OR VASOMOTOR RHINITIS 0% S/C ASTHMA,BRONCHIAL 30% S/C TINNITUS 10% S/C MEDS: Active Outpatient Medications (including Supplies): Non-VA ALBUTEROL 90MCG (CFC-F) 200D ORAL INHL 2 PUFFS BY ACTIVE MOUTH EVERY 4 HOURS NEEDED Non-VA CETIRIZINE HCL 10MG TAB 10MG BY MOUTH ONCE DAILY ACTIVE Non-VA FLUTICASONE PROP 220MCG 120D ORAL INHL 2 PUFFS BY ACTIVE MOUTH ONCE DAILY Non-VA MEMANTINE HCL 10MG TAB 10MG BY MOUTH TWICE DAILY ACTIVE Non-VA RIVASTIGMINE 9.5MG/24HR PATCH 1 PATCH TO SKIN ONCE ACTIVE DAILY ALL: Patient has answered NKA Fam Hx: Non - contributory Soc Hx: NON-SMOKER ROS: Denies any other relavent ROS Vitals Enter at: Mar 18, 2024@13:08:32 BP: 151/76 P: 66 R: 16 T: 97.6 220 lb [99.79 kg] (03/18/2024 13:08) BMI: 35.6 CONSTITUTION: GENERAL APPEARANCE:Well developed, well nourished and groomed. No apparent acute or chronic distress. PATIENT CONFABULATES WITH OBVIOUS MEMORY LOSS HEAD, FACE, SALIVARY GLANDS AND TMJ: Palpation of Parotid and Submandibular glands: Normal. Facial Mobility: Normal. EAR, NOSE, MOUTH AND THROAT: Pinnas - normal. Otoscopic exam: BTE IS REMOVED FOR THE EXAMINATION RIGHT EAR: External auditory canal normal, tympanic membrane mobile LEFT EAR: External auditory canal normal, tympanic membrane mobile Nasal Interior: Turbinates and middle meatus - Inferior turbinates normal. Normal mucosa with no swelling, polyps, active bleeding or evidence of bleeding. Lips, Teeth and Gums: Lips normal. Oral Cavity and Oropharynx: Oral mucosa with normal color and moisture. Anterior 2/3rds of tongue normal. Breath quality normal. Hard palate normal. Normal floor of mouth, Posterior pharynx normal. NECK AND THYROID: Neck: no adenopathy; no neck masses. RESPIRATORY: Respiratory effort normal. LYMPH NODES: Neck nodes: normal. NEUROLOGIC: Higher integrative functions: Normal orientation, memory, attention span and concentration, language, and fund of knowledge. Cranial nerves: Cranial nerves II-XII grossly intact and symmetrical. PSYCHIATRIC: Mood and affect: normal and appropriate to the situation. AUDIOGRAM 03-14-2024 Mild sloping to moderately severe sensorineural hearing loss bilaterally. Speech discrimination of 98% bilaterally. Deepali was seen today for a compensation and pension increase exam. He was accompanied by his per his verbal consent. Deepali is currently wearing bilateral Phonak Audeo P90-312 RICs he was issued on 03/22/22. Deepali reports he is very sensitive to loud, high-pitched sounds. His states he will cover his ears and wince when someone does an announcement over the loud speaker in the grocery store. His also reports he needs to have people looking at him in order to hear them. Assessment/Plan MAR 18, 2024: 78-year-old male here with his with a complaint of significant noise sensitivity. His is speaking for him largely because he has significant memory loss having been diagnosed with Alzheimer's 3 years ago. Physical exam shows patient with obvious memory loss who is pleasant and confabulates. Ear exam shows patient with moderate hearing loss. BTE is removed EACs clear tympanic membrane mobile. 1. Noise sensitivity -I discussed with the patient and his noise sensitivity at great length. I suspect it is multifactorial. He does have significant high-frequency sensorineural hearing loss, in addition he may be becoming more reactive due to his Alzheimer's, and finally he may be having some degree of PTSD. In general his states that he has never exhibited anxiety and she continues not to see any. I discussed with them that we could have him seen by Albertina Wueric to work with finding ways to tolerate his sensitivity. Patient's is welcome to any supports although does reiterate that he has significant short-term memory loss and would not really be able to participate in cognitive therapy. I did reach out to Albertina personally and she thinks that there could be areas to help support both of them. She will contact them. All questions were answered. Complete encounter includes: Review of past medical records Time spent with patient including obtaining history, physical exam, shared decision making, procedures, counseling and answering questions. Post visit documentation to include but not limited to medication and lab ordering. Total time = Minimum 45 min MEDICATION RECONCILIATION Outpatient: Has the patient been taking medications as documented in the EMLR? YES: The patient has been taking medications as documented in the EMLR. Essential Medication List for Review used to complete this medication reconciliation. INCLUDED IN THIS LIST: Alphabetical list of active outpatient prescriptions dispensed from this VA (local) and dispensed from another ID or DoD facility (remote) as well as inpatient orders (local, pending and active), local clinic medications, locally documented non-VA medications, and local prescriptions that have or been discontinued in the past 90 days. - All changes in medications, including all non-VA/Herbal/OTC medications were entered into CPRS. - If there were any medications the patient should no longer take, they were discontinued. - The patient/caregiver was instructed to update this list, discard old lists, and take this list to the next appointment, whether with a VA or non-VA provider. JLV Link Data on this list may not be complete. Please check JLV. Allergies/ADRs (Tool #5) FACILITY ALLERGY/ADR -------- No Remote Allergy/ADR Data available for this patient ID [facility] No Known Allergies Med [facility] (Tool #1) INCLUDED IN THIS LIST: Alphabetical list of active outpatient prescriptions dispensed from this ID (local) and dispensed from another ID or DoD facility (remote) as well as inpatient orders (local pending and active), local clinic medications, locally documented non-VA medications, and local prescriptions that have or been discontinued in the past 90 days. Non-VA Meds Last Documented On: Aug 13, 2023 NOTE The display of VA prescriptions dispensed from another VA or DoD facility (remote) is limited to active outpatient prescription entries matched to National Drug File at the originating site and may not include some items such as investigational drugs, compounds, etc. NOT INCLUDED IN THIS LIST: Medications self-entered by the patient into personal health records (i.e. [employer]) are NOT included in this list. Non-VA medications documented outside this ID, remote inpatient orders (regardless of status) and remote clinic medications are NOT included in this list. The patient and provider must always discuss medications the patient is taking, regardless of where the medication was dispensed or obtained. Non-VA ALBUTEROL 90MCG (CFC-F) 200D ORAL INHL INHALE 2 PUFFS BY MOUTH EVERY 4 HOURS NEEDED Medication prescribed by Non-VA provider. Indication: FOR ASTHMA ATTACK Non-VA CETIRIZINE HCL 10MG TAB TAKE ONE TABLET BY MOUTH ONCE DAILY Non-VA FLUTICASONE PROP 220MCG 120D ORAL INHL INHALE 2 PUFFS BY MOUTH ONCE DAILY Non-VA MEMANTINE HCL 10MG TAB TAKE ONE TABLET BY MOUTH TWICE DAILY Non-VA RIVASTIGMINE 9.5MG/24HR PATCH APPLY 1 PATCH TO SKIN ONCE DAILY Medication prescribed by Non-VA provider. SUPPLIES /fabian/ Jong Avery MD Otolaryngology Signed: 03/19/2024 07:53 Receipt Acknowledged By: 03/25/2024 16:08 /fabian/ ALBERTINA LAUGHLIN, Vonda, [facility]-A Configuration Analyst Chief, Audiology [facility]
--- OUTSIDE RECORDS SUMMARY | 2024-08-12 10:09 | XMS_ITS | Encounter Summary ---
Author Name [facility] [place] Organization [facility] [place] Address [address] [place] [id number] Care Team Providers Care Steel Analyst Name Role Phone WALLACE WEST Primary Care Provider Unavailabl e Insurance Providers: [...] PART A Nov 14, 2012 PART A [id number] [facility] RUELLE,DA VID PATIENT MEDICARE (WNR) MEDICARE () PART B Nov 14, 2012 PART B [id number] [facility] RUELLE,DA VID PATIENT MEDICARE (WNR) MEDICARE () PART A Nov 14, 2012 PART A [id number] RUELLE,DA VID PATIENT MEDICARE (WNR) MEDICARE () PART B Nov 14, 2012 PART B [id number] [phone] RUELLE,DA VID PATIENT MEDICARE (WNR) MEDICARE () PART B Nov 14, 2012 PART B [id number] [phone] RUELLE,DA VID PATIENT MEDICARE (WNR) MEDICARE (M) PART A Nov 14, 2012 PART A [id number] SVETA MOJICA PATIENT FOR LIFE TFL* Nov 14, 2012 [id number] ROLA MOJICA III PATIENT Selected Encounter This section includes the information on record at [place] for the Encounter. Date/Time Encounter Type Encounter Description Reason Provider Source Feb 28, 2024 10:00 AM UNLISTED SPEC DERM SVC/PX DERMATOLOGY ICD-10-CM Z13.89 Encounter for screening for other disorder [facility] Encounter Template Text not used by [place] Assessments - Encounter Diagnoses This section includes the primary and secondary diagnoses documented for the Encounter. Date/Time Primary/Secondary Diagnosis Diagnosis Name Provider Source Feb 28, 2024 09:59 AM PRIMARY Encounter for screening for other disorder [facility] [place] [facility] Plan of Treatment: Future Appointments (+ 6 months) and Future Tests (+/- 45 days) The Plan of Treatment section includes future care activities for the patient from all [place] [facility]. This section includes future appointments and future orders which are active, pending or scheduled. Future Appointments This section includes appointments that were scheduled to occur 6 months from the date of the Encounter, up to a maximum of 20 appointments. The data comes from all [place] treatment facilities. Appointment Date/Time Appointment Type Appointme nt Facility Name Mar 18, 2024 01:00 PM AMBULATORY - MEDICINE [facility] [place] [facility] Mar 18, 2024 02:00 PM AMBULATORY - NONE [place] [facility] [place] [facility] Mar 27, 2024 09:00 AM AMBULATORY - REHAB [place]ICIN [place] [facility] [place] [facility] Apr 10, 2024 09:30 AM AM[facility]ULATORY - MEDICINE [facility] [place] [facility] Apr 18, 2024 11:15 AM AM[place] - [place]ICINE [place] [facility] [place] [facility] Apr 28, 2024 11:00 AM AMBULATORY - [place] [facility] [place] [facility] August 20, 2024 09:30 AM AMBULATORY - MEDICINE [facility] [place] [facility] Social History: Smoking Status (Most current) and Tobacco Use (All prior to encounter date) This section includes the most current, and the historical, smoking and tobacco- related health factors from the [place] facility where the Encounter took place. Current Smoking Status This section includes the most current smoking, or tobacco-related health factor, from the [place] facility where the Encounter took place. Date/Time Current Smoking Status Comment Facil ity Feb 13, 2024 09:00 AM [place]-TOBACCO FORMER USER [facility] Tobacco Use History This section includes a history of the smoking, or tobacco-related health factors, that were collected on or before the date of the Encounter. The data comes from the [place] facility where the Encounter took place. Date/Time Smoking Status/Tobacco Use Comment F acility Feb 13, 2024 09:00 AM VA-TOBACCO QUIT 15 YRS OR MORE [facility] Jan 02, 2022 04:16 PM VA-TOBACCO FORMER USER [facility] Jan 02, 2022 04:16 PM [place] QUIT 1 TO < 5 YRS [facility] Advance Directives: All historical and current Section Date Range: From patient's date of to the date document was created. This section includes ALL of a patient's completed or amended [place] Advance and Rescinded Directives. The entries below indicate that a directive exists for the patient, but an actual copy is not included with this document. The data comes from all [place] facilities. Date Advance Directives Provider Source Jun 19, 2007 ADVANCE DIRECTIVE [facility] Encounter Notes: All associated encounter notes This section contains the clinical notes associated to the Encounter. Date/Time Encounter Note(s) Provider Source Feb 28, 2024 06:01 PM ADDENDUM: LOCAL TITLE: Addendum STANDARD TITLE: ADDENDUM DATE OF NOTE: FEB 28, 2024@18:01:39 ENTRY DATE: FEB 28, 2024@18:01:40 AUTHOR: WALLACE WEST EXP COSIGNER: URGENCY: STATUS: COMPLETED The corrected version is that there are 2 lesions in the left eye and none in the right eye. There is one lesion on left eyelid and one on superior aspect of left orbit. The consult addressed the lesion on the eyelid but not the other lesion on the orbit. So the orbit lesion still needs evaluation. /fabian/ Wallace West MD Staff Physician Signed: 02/28/2024 18:04 Receipt Acknowledged By: 02/29/2024 10:37 /es/ [facility]OCI[facility] --- Original Document --- 02/28/24 PATIENT NOTIFICATION TELEHEALTH RESULTS: Pts left orbit was imaged today, here are the results. TCT Called pt on new Right orbit but pt states he doesn't see anything on the right eye should that new consult be d/c? REMOTE RESULTS SHIRAZ Document from: [facility] Associated on: Feb 28, 2024@13:07:13 LOCAL TITLE: CONSULT-TELEDERMATOLOGY IMAGING REPORT STANDARD TITLE: TELEIMAGING REPORT DATE OF NOTE: FEB 28, 2024@13:05 ENTRY DATE: FEB 28, 2024@13:06:06 AUTHOR: BRYAN FITZGERALD EXP COSIGNER: URGENCY: STATUS: COMPLETED HISTORY: This is a 78-year-old male with no previous history of skin cancer presenting for evaluation of a lesion on the left upper eyelid which is asymptomatic. OVERALL CONSULT/IMAGE QUALITY: Fully satisfactory EXAM: 5 mm desai stuck on papule left upper eyelid IMPRESSION BASED ON IMAGES AND INFORMATION REVIEWED: PROBLEM A: Diagnosis: Seborrheic Keratosis RECOMMENDATIONS FOR REFERRING PROVIDER: PROBLEM A: Skin Care recommendations: Benign lesion no treatment recommended TIME-SENSITIVITY: No time-sensitive, urgent, emergent or life-threatening results. RECOMMENDED FOLLOW-UP (Include Clinically Indicated Date (MELIDA)): Follow up not required Cumulative time of review and management: 5 minutes or more /bernie FITZGERALD PA-C DERMATOLOGY CLINIC Signed: 02/28/2024 13:07 * END OF REMOTE RESULTS * /fabian/ [facility]OCIATE Signed: 02/28/2024 15:30 Receipt Acknowledged By: * AWAITING SIGNATURE * WALLACE WEST HOWARD D [place] [facility] [place] [facility] Feb 28, 2024 03:27 PM TELEHEALTH NOTE: LOCAL TITLE: PATIENT NOTIFICATION TELEHEALTH RESULTS STANDARD TITLE: TELEHEALTH NOTE DATE OF NOTE: FEB 28, 2024@15:27 ENTRY DATE: FEB 28, 2024@15:27:21 AUTHOR: [facility] EXP COSIGNER: URGENCY: STATUS: COMPLETED PATIENT NOTIFICATION TELEHEALTH RESULTS Has ADDENDA Pts left orbit was imaged today, here are the results. TCT Called pt on new Right orbit but pt states he doesn't see anything on the right eye should that new consult be d/c? REMOTE RESULTS SHIRAZ Document from: [facility] Associated on: Feb 28, 2024@13:07:13 LOCAL TITLE: CONSULT-TELEDERMATOLOGY IMAGING REPORT STANDARD TITLE: TELEIMAGING REPORT DATE OF NOTE: FEB 28, 2024@13:05 ENTRY DATE: FEB 28, 2024@13:06:06 AUTHOR: BRYAN FITZGREALD EXP COSIGNER: URGENCY: STATUS: COMPLETED HISTORY: This is a 78-year-old male with no previous history of skin cancer presenting for evaluation of a lesion on the left upper eyelid which is asymptomatic. OVERALL CONSULT/IMAGE QUALITY: Fully satisfactory EXAM: 5 mm desai stuck on papule left upper eyelid IMPRESSION BASED ON IMAGES AND INFORMATION REVIEWED: PROBLEM A: Diagnosis: Seborrheic Keratosis RECOMMENDATIONS FOR REFERRING PROVIDER: PROBLEM A: Skin Care recommendations: Benign lesion no treatment recommended TIME-SENSITIVITY: No time-sensitive, urgent, emergent or life-threatening results. RECOMMENDED FOLLOW-UP (Include Clinically Indicated Date (MELIDA)): Follow up not required Cumulative time of review and management: 5 minutes or more /fabian/ BRYAN FITZGERALD PA-C DERMATOLOGY CLINIC Signed: 02/28/2024 13:07 * END OF REMOTE RESULTS * /fabian/ [facility]ICAL ACADEMIC ASSOCIATE Signed: 02/28/2024 15:30 Receipt Acknowledged By: 03/07/2024 18:09 /fabian/ Wallace West MD Staff Physician 02/28/2024 ADDENDUM STATUS: COMPLETED The corrected version is that there are 2 lesions in the left eye and none in the right eye. There is one lesion on left eyelid and one on superior aspect of left orbit. The consult addressed the lesion on the eyelid but not the other lesion on the orbit. So the orbit lesion still needs evaluation. /fabian/ Wallace West MD Staff Physician Signed: 02/28/2024 18:04 Receipt Acknowledged By: 02/29/2024 10:37 /fabian/ [facility] TELEHE[facility] CLINICAL ACADEMIC ASSOCIATE [facility] [place] [facility] [place] [facility] Feb 28, 2024 09:36 AM TELEHEALTH CONSULT : LOCAL TITLE: CONSULT REPORT/TELEDERMATOLOGY IMAGING REQUEST STANDARD TITLE: TELEHEALTH CONSULT DATE OF NOTE: FEB 28, 2024@09:36 ENTRY DATE: FEB 28, 2024@09:36:34 AUTHOR: [facility] EXP COSIGNER: URGENCY: STATUS: COMPLETED Teledermatology Consult Request The patient was educated regarding the Teledermatology process at this encounter. Comment: Patient educated on telederm process and verbalizes understanding Patient DOES consent to have images taken, viewed, and interpreted using the Teledermatology process. This consult addresses: A new condition Images were acquired: In clinic HISTORY: Prior skin history: None reported Have you had a skin cancer before? None Reported Patient reports no family history of melanoma. Taking new med/supplements: None reported Immunosuppression history: None reported Other significant history: None reported Chief Complaint: Skin lesion left orbit PROBLEM A LOCATION(S): Head/Neck L Orbit DURATION: unsure SYMPTOMS: No Symptoms CHANGES: None TREATMENT: No BIOPSY: No Speech/Language Therapist's comments: Imaged per providers direction and facility protocol /fabian/ [facility] TELE[facility] CL[facility]ICAL ACADEMIC ASSOCIATE Signed: 02/28/2024 10:06 [facility]
--- OUTSIDE RECORDS SUMMARY | 2024-08-12 10:09 | XMS_ITS | Encounter Summary ---
Author Organization [employer] Address [address] [place] [address] Care Team Providers Care Holiday Detector Operator Name Role Phone Unavailable Primary Care Provider Unavailabl e Encounter Details Date Type Department Care Team (Latest Contact Info) Description 08/07/2018 Abstract [facility] CONVERSIONS Dental, Provider, DDS Social [...] Description 08/18/2024 9:30 AM EDT Office Visit [facility] DENTAL [address] [place] [address] Ana Bearden LLD [address] [place] [address] 05/07/2025 9:30 AM EST Office Visit [facility] DENTAL [address] [place] [address] Rosalee Henry documented as of this encounter Visit Diagnoses Not on filedocumented in this encounter
--- OUTSIDE RECORDS SUMMARY | 2024-08-12 10:09 | XMS_ITS ---
Author Name [facility] [place] Address [address] [place] [id number] Care Team Providers Care Humanities And Languages Professor Name Role Phone ABBIE MARTINEZ Primary Care [...] Relationship to Policy Klein MEDICARE (WNR) MEDICARE (M) PART A Nov 14, 2012 PART A [id number] [facility] RUELLE,DA VID PATIENT MEDICARE (WNR) MEDICARE () PART B Nov 14, 2012 PART B [id number] [facility] [phone] RUELLE,DA VID PATIENT MEDICARE (WNR) MEDICARE (M) PART A Nov 14, 2012 PART A [id number] RUELLE,DA VID PATIENT MEDICARE (WNR) MEDICARE (M) PART B Nov 14, 2012 PART B [id number] RUELLE,DA VID PATIENT MEDICARE (WNR) MEDICARE (M) PART B Nov 14, 2012 PART B [id number] [phone] RUELLE,DA VID PATIENT MEDICARE (WNR) MEDICARE () PART A Nov 14, 2012 PART A [id number] [phone] SVETA MOJICA PATIENT FOR LIFE TFL* Nov 14, 2012 [id number] ROLA MOJICA III PATIENT Selected Encounter This section includes the [place] for the En[place]. Date/Time Encounter Type Encounter Description Reason Pro vider Source Jun 12, 2024 08:39 AM Outpatient Encounter ADMIN PAT ACTIVTIES (MASNONCT) IHE Encounter Template Text not used by [place] Plan of Treatment: Future Appointments (+ 6 months) and Future Tests (+/- 45 days) The Plan of Treatment section includes future care [facility] for [facility] [place] [facility] This section includes future appointments and future orders which are active, pending or scheduled. Future Appointments This section includes appointments that were scheduled to occur 6 months from the date of the Encounter, up to a maximum of 20 appointments. The data comes from all [place] treatment facilities. Appointment Date/Time Appointment Type Appointme nt Facility Name August 20, 2024 09:30 AM AMBULATORY - MEDICINE [facility] Dec 01, 2024 10:00 AM AMBULATORY - MEDICINE [facility] Social History: Smoking Status (Most current) and Tobacco Use (All prior to encounter date) This section includes the most current, and the historical, smoking and tobacco- related health factors from the [place] facility where the Encounter took place. Current Smoking Status This section includes the most current smoking, or tobacco-related health factor, from the [place] facility where the Encounter took place. Date/Time Current Smoking Status Comment Facil ity Feb 13, 2024 09:00 AM VA-TOBACCO FORMER USER [facility] Tobacco Use History This section includes a history of the smoking, or tobacco-related health factors, that were collected on or before the date of the Encounter. The data comes from the [place] facility where the Encounter took place. Date/Time Smoking Status/Tobacco Use Comment F acility Feb 13, 2024 09:00 AM [place]-TOBACCO QUIT 15 YRS OR MORE [facility] Jan 02, 2022 04:16 PM VA-TOBACCO FORMER USER [facility] Jan 02, 2022 04:16 PM VA-TOBACCO QUIT 1 TO < 5 YRS [place] [facility] [place] [facility] Advance Directives: All historical and current Section Date Range: From patient's date of to the date document was created. This section includes ALL of a patient's completed or amended [place] Advance and Rescinded Directives. The entries below indicate that a directive exists for the patient, but an actual copy is not included with this document. The data comes from all [place] facilities. Date Advance Directives Provider Source Jun 19, 2007 ADVANCE DIRECTIVE [facility] Encounter Notes: All associated encounter notes This section contains the clinical notes associated to the Encounter. Date/Time Encounter Note(s) Provider Source Jun 12, 2024 08:39 AM SLEEP MEDICINE NOT E: LOCAL TITLE: CPAP CLINIC NOTE STANDARD TITLE: SLEEP MEDICINE NOTE DATE OF NOTE: JUN 12, 2024@08:39 ENTRY DATE: JUN 12, 2024@08:40:08 AUTHOR: DILIP HURT EXP COSIGNER: URGENCY: STATUS: COMPLETED Show Low diagnosed with sleep apnea requested replacement supplies. Equipment will be sent to vet's home address via [employer]. [employer] AirView Compliance Report Usage 05/13/2024 - 06/11/2024 Usage days 30/30 days (100%) >= 4 hours 30 days (100%) < 4 hours 0 days (0%) Usage hours 246 hours 55 minutes Average usage (total days) 8 hours 14 minutes Average usage (days used) 8 hours 14 minutes Median usage (days used) 8 hours 8 minutes Total used hours (value since last reset - 06/11/2024) 7,034 hours AirSense 11 AutoSet Serial number [id number] Mode AutoSet Min Pressure 5 cmH2O Max Pressure 20 cmH2O EPR Fulltime EPR level 3 Response Soft Therapy Pressure - cmH2O Median: 7.6 95th percentile: 10.6 Maximum: 11.9 Leaks - L/min Median: 15.9 95th percentile: 43.9 Maximum: 60.9 Events per hour AI: 5.0 HI: 1.3 AHI: 6.3 Apnea Index Central: 1.8 Obstructive: 1.0 Unknown: 2.2 RERA Index 0.6 Brennon-Mitchell respiration (average duration per night) 0 minutes (0%) /fabian/ DILIP HURT RESPIRATORY THERAPIST Signed: 06/12/2024 08:41 DILIP HURT [place] [facility]
--- OUTSIDE RECORDS SUMMARY | 2024-08-12 10:10 | XMS_ITS | Encounter Summary ---
Author Organization [employer] Address [address] [facility] [address] [place] [address] Care Team Providers Care Teaching Specialists Name Role Phone Unavailable Primary Care Provider Unavailabl e Encounter Details Date Type Department Care Team (Latest Contact Info) Description 06/23/2021 Abstract [facility] CONVERSIONS Dental, Provider, DDS Social [...] Description 08/18/2024 9:30 AM EDT Office Visit [facility] DENTAL [address] [place] [address] Ana Bearden LLD [address] [place] [address] 05/07/2025 9:30 AM EST Office Visit [facility] DENTAL [address] [place] [address] Rosalee Henry documented as of this encounter Visit Diagnoses Not on filedocumented in this encounter
--- OUTSIDE RECORDS SUMMARY | 2024-08-12 10:10 | XMS_ITS | Encounter Summary ---
Author Name [facility] [place] Organization [facility] [place] Address [address] [place] [id number] Care Team Providers Care Specimen Processor Name Role Phone WALLACE WEST Primary Care [...] PART A Nov 14, 2012 PART A [id number] [facility] RUELLE,DA VID PATIENT MEDICARE (WNR) MEDICARE () PART B Nov 14, 2012 PART B [id number] [facility] [phone] RUELLE,DA VID PATIENT MEDICARE (WNR) MEDICARE () PART A Nov 14, 2012 PART A [id number] RUELLE,DA VID PATIENT MEDICARE (WNR) MEDICARE () PART B Nov 14, 2012 PART B [id number] RUELLE,DA VID PATIENT MEDICARE (WNR) MEDICARE () PART B Nov 14, 2012 PART B [id number] [phone] RUELLE,DA VID PATIENT MEDICARE (WNR) MEDICARE (M) PART A Nov 14, 2012 PART A [id number] SVETA MOJICA PATIENT FOR LIFE TFL* Nov 14, 2012 [id number] ROLA MOJICA III PATIENT Selected Encounter This section includes the information on record at [place] for the Encounter. Date/Time Encounter Type Encounter Description Reason Provider Source Mar 18, 2024 02:00 PM UNLISTED SPEC DERM SVC/PX DERMATOLOGY ICD-10-CM Z13.89 Encounter for screening for other disorder JOAQUÍN COLE [facility] Encounter Template Text not used by [place] Assessments - Encounter Diagnoses This section includes the primary and secondary diagnoses documented for the Encounter. Date/Time Primary/Secondary Diagnosis Diagnosis Name Provider Source Mar 18, 2024 02:33 PM PRIMARY Encounter for screening for other disorder JOAQUÍN COLE [facility] Plan of Treatment: Future Appointments (+ 6 months) and Future Tests (+/- 45 days) The Plan of Treatment section includes future care activities for the patient [facility] [place] [facility] This section includes future appointments and future orders which are active, pending or scheduled. Future Appointments This section includes appointments that were scheduled to occur 6 months from the date of the Encounter, up to a maximum of 20 appointments. The data comes from all [place] treatment facilities. Appointment Date/Time Appointment Type Appointme nt Facility Name Mar 27, 2024 09:00 AM AMBULATORY - REHAB MEDICIN E [facility] Apr 10, 2024 09:30 AM AMBULATORY - MEDICINE [facility] Apr 18, 2024 11:15 AM [facility] Apr 28, 2024 11:00 AM [facility] August 20, 2024 09:30 AM AMBULATORY - MEDICINE [facility] Vital Signs: All taken on the encounter date This section contains inpatient and outpatient Vital Signs collected on the date of the Encounter. Date/Time Temperature Pulse Blood Pressure Respiratory Rate SP02 Pain Height Weight Body Mass Index Source Mar 18, 2024 01:08 PM 97.6 66 151/76 16 97 0 220 36 [facility] Social History: Smoking Status (Most current) and Tobacco Use (All prior to encounter date) This section includes the most current, and the historical, smoking and tobacco- related health factors from the [place] facility where the Encounter took place. Current Smoking Status This section includes the most current smoking, or tobacco-related health factor, from the [place] facility where the Encounter took place. Date/Time Current Smoking Status Comment Facil ity Feb 13, 2024 09:00 AM VA-TOBACCO FORMER USER [facility] Tobacco Use History This section includes a history of the smoking, or tobacco-related health factors, that were collected on or before the date of the Encounter. The data comes from the [place] facility where the Encounter took place. Date/Time Smoking Status/Tobacco Use Comment F acility Feb 13, 2024 09:00 AM VA-TOBACCO QUIT 15 YRS OR MORE [facility] Jan 02, 2022 04:16 PM VA-TOBACCO FORMER USER [facility] Jan 02, 2022 04:16 PM VA-TOBACCO QUIT 1 TO < 5 YRS [facility] Advance Directives: All historical and current Section Date Range: From patient's date of to the date document was created. This section includes ALL of a patient's completed or amended [place] Advance and Rescinded Directives. The entries below indicate that a directive exists for the patient, but an actual copy is not included with this document. The data comes from all [place] facilities. Date Advance Directives Provider Source Jun 19, 2007 ADVANCE DIRECTIVE [facility] Encounter Notes: All associated encounter notes This section contains the clinical notes associated to the Encounter. Date/Time Encounter Note(s) Provider Source Mar 19, 2024 08:08 AM TELEHEALTH NOTE: LOCAL TITLE: TELEHEALTH NOTE STANDARD TITLE: TELEHEALTH NOTE DATE OF NOTE: MAR 19, 2024@08:08 ENTRY DATE: MAR 19, 2024@08:08:47 AUTHOR: JOAQUÍN COLE COSIGNER: URGENCY: STATUS: COMPLETED Here are pts results from his Teledermatology please give pt his results. REMOTE RESULTS SHIRAZ Document from: [facility] Associated on: Mar 18, 2024@15:24:09 LOCAL TITLE: CONSULT-TELEDERMATOLOGY IMAGING REPORT STANDARD TITLE: TELEIMAGING REPORT DATE OF NOTE: MAR 18, 2024@15:22 ENTRY DATE: MAR 18, 2024@15:22:53 AUTHOR: BRYAN FITZGERALD EXP COSIGNER: URGENCY: STATUS: COMPLETED HISTORY: This is a 78-year-old male with no previous history of skin cancer consulted for a lesion on the right inner canthus and in the left infraorbital area. No symptoms associated OVERALL CONSULT/IMAGE QUALITY: Fully satisfactory EXAM: Right inner canthus shows a 3 mm desai stuck on papule. The left infraorbital area shows a 2 mm desai stuck on appearing papule. IMPRESSION BASED ON IMAGES AND INFORMATION REVIEWED: PROBLEM A: Diagnosis: Seborrheic Keratosis PROBLEM B: Diagnosis: Seborrheic Keratosis RECOMMENDATIONS FOR REFERRING PROVIDER: PROBLEM A: Skin Care recommendations: These are benign lesions no treatment is required. TIME-SENSITIVITY: No time-sensitive, urgent, emergent or life-threatening results. RECOMMENDED FOLLOW-UP (Include Clinically Indicated Date (MELIDA)): Follow up not required Cumulative time of review and management: 5 minutes or more /bernie FITZGERALD PA-C DERMATOLOGY CLINIC Signed: 03/18/2024 15:24 * END OF REMOTE RESULTS /fabian/ JOAQUÍN COLE [facility]LE[facility] CLINICAL WEED CONTROLLER Signed: 03/19/2024 08:09 Receipt Acknowledged By: 03/20/2024 14:48 /fabian/ Wallace West MD Staff Physician JO[facility]QU[facility]N COLE [facility] Mar 18, 2024 02:05 PM TELEHEALTH CONSULT : LOCAL TITLE: CONSULT REPORT/TELEDERMATOLOGY IMAGING REQUEST STANDARD TITLE: TELEHEALTH CONSULT DATE OF NOTE: MAR 18, 2024@14:05 ENTRY DATE: MAR 18, 2024@14:05:21 AUTHOR: JOAQUÍN COLE EXP COSIGNER: URGENCY: STATUS: [...] Other significant history: None reported Chief Complaint: lesion left orbit concerned about R corner of the R eye PROBLEM A LOCATION(S): Head/Neck Left Orbit DURATION: Unsure SYMPTOMS: No Symptoms CHANGES: unsure TREATMENT: No BIOPSY: No PROBLEM B: LOCATION(S): Head/Neck R corner of the R eye Very difficult to image with Dermoscopy. DURATION: Unsure SYMPTOMS: No Symptoms CHANGES: None TREATMENT: No BIOPSY: No Shipper And Receiving's comments: Imaged per providers direction and facility protocol /fabian/ JOAQUÍN COLE TELEHEALTH CLINICAL WEED CONTROLLER Signed: 03/18/2024 14:34 [facility]
--- OUTSIDE RECORDS SUMMARY | 2024-08-12 10:10 | XMS_ITS | Encounter Summary ---
Author Name [facility] [place] [place] Organization [place] Address [address] [place] [address] Care Team Providers Care Production Aide Name Role Phone ABBIE MARTINZE Primary Care Provider Unavailabl e Insurance Providers: [...] PART A Nov 14, 2012 PART A [id number] [facility] [phone] RUELLE,DA VID PATIENT MEDICARE (WNR) MEDICARE (M) PART B Nov 14, 2012 PART B [id number] [facility] [phone] RUELLE,DA VID PATIENT MEDICARE (WNR) MEDICARE (M) PART B Nov 14, 2012 PART B [id number] [phone] RUELLE,DA VID PATIENT MEDICARE (WNR) MEDICARE (M) PART A Nov 14, 2012 PART A [id number] RUELLE,DA VID PATIENT MEDICARE (WNR) MEDICARE (M) PART B Nov 14, 2012 PART B [id number] [phone] RUELLE,DA VID PATIENT MEDICARE (WNR) MEDICARE (M) PART A Nov 14, 2012 PART A [id number] SVETA MOJICA PATIENT FOR LIFE TFL* Nov 14, 2012 [id number] [phone] ROLA MOJICA III PATIENT Selected Encounter This section includes the information on record at [place] for the Encounter. Date/Time Encounter Type Encounter Description Reason Provider Source Feb 28, 2024 01:05 PM Outpatient Encounter DERMATOLOGY ICD-10-CM L82.1 Other seborrheic keratosis BRYAN FITZGERALD Maria Fernanda Encounter Template Text not used by [place] Assessments - Encounter Diagnoses This section includes the primary and secondary diagnoses documented for the Encounter. Date/Time Primary/Secondary Diagnosis Diagnosis Name Provider Source Feb 28, 2024 01:07 PM PRIMARY Other seborrheic keratosis BRYAN FITZGERALD [facility] Plan of Treatment: Future Appointments (+ 6 months) and Future Tests (+/- 45 days) The Plan of Treatment section includes future care activities for the patient from all [place] treatmentfacilities. This section includes future appointments and future orders which are active, pending or scheduled. Future Appointments This section includes appointments that were scheduled to occur 6 months from the date of the Encounter, up to a maximum of 20 appointments. The data comes from all [place] treatment facilities. Appointment Date/Time Appointment Type Appointme nt Facility Name Mar 18, 2024 01:00 PM AMBULATORY - MEDICINE [place] [facility] Mar 18, 2024 02:00 PM AMBULATORY - NONE [facility] Mar 27, 2024 09:00 AM AMBULATORY - REHAB MEDICIN E [facility] Apr 10, 2024 09:30 AM AMBULATORY - MEDICINE [facility] Apr 18, 2024 11:15 AM AMBULATORY - MEDICINE [facility] Apr 28, 2024 11:00 AM AMBULATORY - REHAB MEDICIN E [facility] August 20, 2024 09:30 AM AMBULATORY - MEDICINE [facility] Advance Directives: All historical and current Section Date Range: From patient's date of to the date document was created. This section includes ALL of a patient's completed or amended [place] Advance and Rescinded Directives. The entries below indicate that a directive exists for the patient, but an actual copy is not included with this document. The data comes from all [place] facilities. Date Advance Directives Provider Source Jun 19, 2007 ADVANCE DIRECTIVE [facility]DAVERDEARPIT Encounter Notes: All associated encounter notes This section contains the clinical notes associated to the Encounter. Date/Time Encounter Note(s) Provider Source Feb 28, 2024 01:05 PM TELEIMAGING REPORT : LOCAL TITLE: CONSULT-TELEDERMATOLOGY IMAGING REPORT STANDARD TITLE: [...] FITZGERALD PA-C DERMATOLOGY CLINIC Signed: 02/28/2024 13:07 BRYAN FITZGERALD [facility]
--- OUTSIDE RECORDS SUMMARY | 2024-08-12 10:10 | XMS_ITS | Encounter Summary ---
Author Name [facility] [place] [facility] [place] Organization [facility] [place] Address [address] [place] [address] Care Team Providers Care Planer Setter Name Role Phone ABBIE MARTINEZ Primary Care [...] PART A Nov 14, 2012 PART A [id number] [facility] [phone] RUELLE,DA VID PATIENT MEDICARE (WNR) MEDICARE () PART B Nov 14, 2012 PART B [id number] [facility] [phone] RUELLE,DA VID PATIENT MEDICARE (WNR) MEDICARE (M) PART A Nov 14, 2012 PART A [id number] [phone] RUELLE,DA VID PATIENT MEDICARE (WNR) MEDICARE (M) PART B Nov 14, 2012 PART B [id number] RUELLE,DA VID PATIENT MEDICARE (WNR) MEDICARE (M) PART B Nov 14, 2012 PART B [id number] RUELLE,DA VID PATIENT MEDICARE (WNR) MEDICARE () PART A Nov 14, 2012 PART A [id number] SVETA MOJICA PATIENT FOR LIFE TFL* Nov 14, 2012 [id number] ROLA MOJICA III PATIENT Selected Encounter This section includes the information on record at [place] for the Encounter. Date/Time Encounter Type Encounter Description Reason Provider Source Mar 27, 2024 09:00 AM EAR IMPRESSION AUDIOLOGY ICD-10-CM H90.3 Sensorineural hearing loss, bilateral ADDI SQUIRES IHE Encounter Template Text not used by [place] Assessments - Encounter Diagnoses This section includes the primary and secondary diagnoses documented for the Encounter. Date/Time Primary/Secondary Diagnosis Diagnosis Name Provider Source Mar 27, 2024 09:43 AM PRIMARY Sensorineural hearing loss, bilateral [facility] Mar 27, 2024 09:43 AM SECONDARY Tinnitus, bilateral ADDI SQUIRES [facility] Plan of Treatment: Future Appointments (+ 6 months) and Future Tests (+/- 45 days) The Plan of Treatment section includes future care activities for the patient from all [place] [facility] This section includes future appointments and future orders which are active, pending or scheduled. Future Appointments This section includes appointments that were scheduled to occur 6 months from the date of the Encounter, up to a maximum of 20 appointments. The data comes from all [place] treatment facilities. Appointment Date/Time Appointment Type Appointme nt Facility Name Apr 10, 2024 09:30 AM [facility]UL[facility]ORY [facility] Apr 18, 2024 11:15 AM [facility] Apr 28, 2024 11:00 AM [facility] August 20, 2024 09:30 AM [facility] Social History: Smoking Status (Most current) and Tobacco Use (All prior to encounter date) This section includes the most current, and the historical, smoking and tobacco- related health factors from the [facility] facility where the Encounter took place. Current Smoking Status This section includes the most current smoking, or tobacco-related health factor, from the [place] facility where the Encounter took place. Date/Time Current Smoking Status Comment Abdiel ity Feb 13, 2024 09:00 AM VA-TOBACCO FORMER USER [facility] Tobacco Use History This section includes a history of the smoking, or tobacco-related health factors, that were collected on or before the date of the Encounter. The data comes from the [place] facility where the Encounter took place. Date/Time Smoking Status/Tobacco Use Comment F acility Feb 13, 2024 09:00 AM VA-TOBACCO QUIT 15 [facility] Jan 02, 2022 04:16 PM [facility]AC[facility] Jan 02, 2022 04:16 PM VA-TOBACCO QUIT 1 TO < 5 YRS [facility] Advance Directives: All historical and current Section Date Range: From patient's date of to the date document was created. This section includes ALL of a patient's completed or amended VA Advance and Rescinded Directives. The entries below indicate that a directive exists for the patient, but an actual copy is not included with this document. The data comes from all [place] facilities. Date Advance Directives Provider Source Jun 19, 2007 ADVANCE DIRECTIVE [facility] Encounter Notes: All associated encounter notes This section contains the clinical notes associated to the Encounter. Date/Time Encounter Note(s) Provider Source Apr 24, 2024 04:02 PM ADDENDUM: LOCAL TITLE: Addendum STANDARD TITLE: ADDENDUM DATE OF NOTE: APR 24, 2024@16:02:33 ENTRY DATE: APR 24, 2024@16:02:34 AUTHOR: ADELA LAUGHLINIGNER: URGENCY: STATUS: COMPLETED spoke with 's , arranged tentative follow up phone call 05/20 @ 454 (she is not comfortable with [facility] as internet is spotty) This will give time for to trial the musician's earplugs and monitor progress. She also mentioned that whatever Dr. Squires did to his hearing aids on 03/27 he is doing so much better and he keeps the hearing aids in now and does not complain about the sound. They both were so impressed with the care given by Dr. Squires and is requesting to only follow up with Dr. Squires for his future hearing aid needs. Adding Dr. Squires for awareness /es/ Vonda SYKES, CCC-A Project Construction Manager Chief, Audiology Signed: 04/24/2024 16:06 Receipt Acknowledged By: 04/25/2024 08:06 /bernie Barakat CCC-A CHIEF, AUDIOLOGY/CASTING HOUSE LABORER === --- Original Document --- 03/27/24 AUDIOLOGY CLINIC: Deepali was seen March 27, 2024 for updated testing, sound adjustments and ear impressions for musician earplugs (see 03/21/24 note). Last testing was done in February 2023. 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 Laughlin for treatment. He wears 2021 issued Phonak RADHA aids. Results of today's testing are as follow: Otoscopy revealed clear canals right ear and nearly occluding cerumen left ear. Advised and to contact PCP team to schedule nursing visit for cerumen removal left ear. Pure tone audiometric testing under headphones revealed STABLE hearing sensitivity with a mild to moderate/moderately severe sensorineural hearing loss 4669-5322 Hz bilaterally. Word recognition scores excellent in both ears (96% right, 100% left) with recorded speech presented at 75 dB HL (contralateral masking). Normal tympanogram obtained left ear, could not maintain hermetic seal for right ear testing. Ear impressions taken without incident of each ear for ordering of musician earplugs from [facility] per Dr. Laughlin's note. Post otoscopic inspection normal. Phonak aids checked and cleaned. Retention lines, cerushields and domes replaced and biologic check good. Aids reprogrammed with maximum/strongest noise reduction/sound relax and 1 step decrease in overall gain per Dr. Laughlin's note. and counseled on today's test results. Hearing is stable and we will order the musician earplugs for as part of treatment plan for his sound sensitivity. Once the earplugs are in, should be contacted to schedule a 30 min HAC or HT brass pickler and fit check of earplugs. If fit is good, Dr. Laughlin will be alerted to book follow up phone call with Theresa. Patient Education Education provided on the following topics: See above Education provided to: P, SO Response to Education: VU Garrison Patient P Family F Significant Other SO Verbalizes Understanding VU Returns Demonstration RD Performs Independently PI Lacks Comprehension LC Refused Education RE Not Applicable NA /KONSTANTIN Garber CHIEF, AUDIOLOGY/CASTING HOUSE LABORER Signed: 03/27/2024 09:43 04/23/2024 ADDENDUM STATUS: COMPLETED called for a status on the musician ear plugs. please update /es/ SIOBHAN SURESH LEAD NEONATAL INTENSIVE CARE UNIT NURSE Signed: 04/23/2024 13:24 Receipt Acknowledged By: 04/23/2024 13:31 /fabian/ ADDI Barakat CCC-Walter CHIEF, AUDIOLOGY/CASTING HOUSE LABORER 04/23/2024 ADDENDUM STATUS: COMPLETED Ear plugs are in-please book HAC or HT to assess fit. Alerting Dr. Laughlin to reach out to book [facility]. /fabian/ ADDI Barakat CCC-Walter CHIEF, AUDIOLOGY/CASTING HOUSE LABORER Signed: 04/23/2024 13:31 Receipt Acknowledged By: 04/23/2024 14:05 /bernie SURESH LEAD NEONATAL INTENSIVE CARE UNIT NURSE 04/24/2024 16:02 /fabian/ Vonda SYKES CCC-A Project Construction Manager Chief, Audiology ADELA LAUGHLIN [facility] Apr 23, 2024 01:31 PM ADDENDUM: LOCAL TITLE: Addendum STANDARD TITLE: ADDENDUM DATE OF NOTE: APR 23, 2024@13:31:11 ENTRY DATE: APR 23, 2024@13:31:12 AUTHOR: ADDI SQUIRES EXP COSIGNER: URGENCY: STATUS: COMPLETED Ear plugs are in-please book HAC or HT to assess fit. Alerting Dr. Laughlin to reach out to book C. /fabian/ ADDI Barakat CCC-A CHIEF, AUDIOLOGY/CASTING HOUSE LABORER Signed: 04/23/2024 13:31 Receipt Acknowledged By: 04/23/2024 14:05 /bernie SURESH LEAD NEONATAL INTENSIVE CARE UNIT NURSE 04/24/2024 16:02 /fabian/ Vonda SYKES CCC-A Project Construction Manager Chief, Audiology === --- Original Document --- 03/27/24 AUDIOLOGY CLINIC: was seen March 27, 2024 for updated testing, sound adjustments and ear impressions for musician earplugs (see 03/21/24 note). Last testing was done in February 2023. 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 Laughlin for treatment. He wears 2021 issued Phonak RADHA aids. Results of today's testing are as follow: Otoscopy revealed clear canals right ear and nearly occluding cerumen left ear. Advised Theresa and to contact PCP team to schedule nursing visit for cerumen removal left ear. Pure tone audiometric testing under headphones revealed STABLE hearing sensitivity with a mild to moderate/moderately severe sensorineural hearing loss 0585-4746 Hz bilaterally. Word recognition scores excellent in both ears (96% right, 100% left) with recorded speech presented at 75 dB HL (contralateral masking). Normal tympanogram obtained left ear, could not maintain hermetic seal for right ear testing. Ear impressions taken without incident of each ear for ordering of musician earplugs from [facility] per Dr. Laughlin's note. Post otoscopic inspection normal. Phonak aids checked and cleaned. Retention lines, cerushields and domes replaced and biologic check good. Aids reprogrammed with maximum/strongest noise reduction/sound relax and 1 step decrease in overall gain per Dr. Laughlin's note. Theresa and counseled on today's test results. Hearing is stable and we will order the musician earplugs for Theresa as part of treatment plan for his sound sensitivity. Once the earplugs are in, Theresa should be contacted to schedule a 30 min HAC or HT brass pickler and fit check of earplugs. If fit is good, Dr. Laughlin will be alerted to book follow up phone call with . Patient Education Education provided on the following topics: See above Education provided to: P, SO Response to Education: VU Garrison Patient P Family F Significant Other SO Verbalizes Understanding VU Returns Demonstration RD Performs Independently PI Lacks Comprehension LC Refused Education RE Not Applicable NA /fabian/ ADDI Barakat, CCC-A CHIEF, AUDIOLOGY/CASTING HOUSE LABORER Signed: 03/27/2024 09:43 04/23/2024 ADDENDUM STATUS: COMPLETED called for a status on the musician ear plugs. please update /fabian/ SIOBHAN SURESH LEAD NEONATAL INTENSIVE CARE UNIT NURSE Signed: 04/23/2024 13:24 Receipt Acknowledged By: 04/23/2024 13:31 /bernie Barakat CCC-Walter CHIEF, AUDIOLOGY/CASTING HOUSE LABORER 04/24/2024 ADDENDUM STATUS: UNSIGNED You may not VIEW this UNSIGNED Addendum. ADDI SQUIRES [place] [facility] [place] [facility] Apr 23, 2024 01:23 PM ADDENDUM: LOCAL TITLE: Addendum STANDARD TITLE: ADDENDUM DATE OF NOTE: APR 23, 2024@13:23:31 ENTRY DATE: APR 23, 2024@13:23:31 AUTHOR: SIOBHAN SURESH EXP COSIGNER: URGENCY: STATUS: COMPLETED called for a status on the musician ear plugs. please update /bernie SURESH LEAD NEONATAL INTENSIVE CARE UNIT NURSE Signed: 04/23/2024 13:24 Receipt Acknowledged By: 04/23/2024 13:31 /fabian/ ADDI Barakat CCC-A CHIEF, AUDIOLOGY/CASTING HOUSE LABORER === --- Original Document --- 03/27/24 AUDIOLOGY CLINIC: Deepali was seen March 27, 2024 for updated testing, sound adjustments and ear impressions for musician earplugs (see 03/21/24 note). Last testing was done in February 2023. has severe sound sensitivity to sudden loud sounds and is working with Dr. Laughlin for treatment. He wears 2021 issued Phonak RADHA aids. Results of today's testing are as follow: Otoscopy revealed clear canals right ear and nearly occluding cerumen left ear. Advised and to contact PCP team to schedule nursing visit for cerumen removal left ear. Pure tone audiometric testing under headphones revealed STABLE hearing sensitivity with a mild to moderate/moderately severe sensorineural hearing loss 7055-0785 Hz bilaterally. Word recognition scores excellent in both ears (96% right, 100% left) with recorded speech presented at 75 dB HL (contralateral masking). Normal tympanogram obtained left ear, could not maintain hermetic seal for right ear testing. Ear impressions taken without incident of each ear for ordering of musician earplugs from [facility] per Dr. Laughlin's note. Post otoscopic inspection normal. Phonak aids checked and cleaned. Retention lines, cerushields and domes replaced and biologic check good. Aids reprogrammed with maximum/strongest noise reduction/sound relax and 1 step decrease in overall gain per Dr. Laughlin's note. Theresa and counseled on today's test results. Hearing is stable and we will order the musician earplugs for Theresa as part of treatment plan for his sound sensitivity. Once the earplugs are in, should be contacted to schedule a 30 min HAC or HT brass pickler and fit check of earplugs. If fit is good, Dr. Laughlin will be alerted to book follow up phone call with . Patient Education Education provided on the following topics: See above Education provided to: P, SO Response to Education: ANUP Garrison Patient P Family F Significant Other SO Verbalizes Understanding VU Returns Demonstration RD Performs Independently PI Lacks Comprehension LC Refused Education RE Not Applicable NA /fabian/ ADDI Barakat CCC-A CHIEF, AUDIOLOGY/CASTING HOUSE LABORER Signed: 03/27/2024 09:43 04/23/2024 ADDENDUM STATUS: UNSIGNED You may not VIEW this UNSIGNED Addendum. SIOBHAN SURESH [place] [facility] [place] [facility] Mar 27, 2024 09:33 AM AUDIOLOGY E & M NO TE: LOCAL TITLE: AUDIOLOGY CLINIC STANDARD TITLE: AUDIOLOGY E & M NOTE DATE OF NOTE: MAR 27, 2024@09:33 ENTRY DATE: MAR 27, 2024@09:33:12 AUTHOR: ADDI SQUIRES EXP COSIGNER: URGENCY: STATUS: COMPLETED AUDIOLOGY CLINIC Has ADDENDA Deepali was seen March 27, 2024 for updated testing, sound adjustments and ear impressions for musician earplugs (see 03/21/24 note). Last testing was done in February 2023. has severe sound sensitivity to sudden loud sounds and is working with Dr. Laughlin for treatment. He wears 2021 issued Phonak RADHA aids. Results of today's testing are as follow: Otoscopy revealed clear canals right ear and nearly occluding cerumen left ear. Advised and to contact PCP team to schedule nursing visit for cerumen removal left ear. Pure tone audiometric testing under headphones revealed STABLE hearing sensitivity with a mild to moderate/moderately severe sensorineural hearing loss 6451-4766 Hz bilaterally. Word recognition scores excellent in both ears (96% right, 100% left) with recorded speech presented at 75 dB HL (contralateral masking). Normal tympanogram obtained left ear, could not maintain hermetic seal for right ear testing. Ear impressions taken without incident of each ear for ordering of musician earplugs from [facility] per Dr. Laughlin's note. Post otoscopic inspection normal. Phonak aids checked and cleaned. Retention lines, cerushields and domes replaced and biologic check good. Aids reprogrammed with maximum/strongest noise reduction/sound relax and 1 step decrease in overall gain per Dr. Laughlin's note. and counseled on today's test results. Hearing is stable and we will order the musician earplugs for as part of treatment plan for his sound sensitivity. Once the earplugs are in, Theresa should be contacted to schedule a 30 min HAC or HT brass pickler and fit check of earplugs. If fit is good, Dr. Laughlin will be alerted to book follow up phone call with Theresa. Patient Education Education provided on the following topics: See above Education provided to: P, SO Response to Education: VU Garrison Patient P Family F Significant Other SO Verbalizes Understanding VU Returns Demonstration RD Performs Independently PI Lacks Comprehension LC Refused Education RE Not Applicable NA /bernie Barakat CCC-A CHIEF, AUDIOLOGY/CASTING HOUSE LABORER Signed: 03/27/2024 09:43 04/23/2024 ADDENDUM STATUS: COMPLETED called for a status on the musician ear plugs. please update /bernie SURESH LEAD NEONATAL INTENSIVE CARE UNIT NURSE Signed: 04/23/2024 13:24 Receipt Acknowledged By: 04/23/2024 13:31 /bernie Barakat CCC-A CHIEF, AUDIOLOGY/CASTING HOUSE LABORER 04/23/2024 ADDENDUM STATUS: COMPLETED Ear plugs are in-please book HAC or HT to assess fit. Alerting Dr. Laughlin to reach out to book [facility]. /bernie Barakat CCC-A CHIEF, AUDIOLOGY/CASTING HOUSE LABORER Signed: 04/23/2024 13:31 Receipt Acknowledged By: 04/23/2024 14:05 /bernie SURESH LEAD NEONATAL INTENSIVE CARE UNIT NURSE 04/24/2024 16:02 /es/ Vonda SYKES, MORALES-A Project Construction Manager Chief, Audiology 04/24/2024 ADDENDUM STATUS: COMPLETED spoke with 's , arranged tentative follow up phone call 05/20 @ 480 (she is not comfortable with [facility] as internet is spotty) This will give time for to trial the musician's earplugs and monitor progress. She also mentioned that whatever Dr. Squires did to his hearing aids on 03/27 he is doing so much better and he keeps the hearing aids in now and does not complain about the sound. They both were so impressed with the care given by Dr. Squires and is requesting to only follow up with Dr. Squires for his future hearing aid needs. Adding Dr. Squires for awareness /fabian/ Vonda SYKES, MORALES-A Project Construction Manager Chief, Audiology Signed: 04/24/2024 16:06 Receipt Acknowledged By: * AWAITING SIGNATURE * ADDI [facility]ES [facility]
--- OUTSIDE RECORDS SUMMARY | 2024-08-12 10:10 | XMS_ITS | Clinical Summary ---
Author Organization [facility] Address [address] [place] [address] [address] [place] [address] Care Team Providers Care Repairer Kiln Car Name Role Phone Unavailable Primary Care Provider Unavailabl e Allergies No known active allergies Medications Flovent HFA 44 MCG/ACT inhaler Inhale 2 puffs 2 times daily. 3 Active memantine (Namenda) 10 MG tablet Take 10 mg by mouth in the morning. 3 Active cetirizine (ZyrTEC) 10 MG tablet Take 10 mg by mouth in the morning. 3 Active gabapentin (Neurontin) 100 MG capsule Take 100 mg by mouth at bedtime. 2 Active rivastigmine (Exelon) 4.6 MG/24HR APPLY 1 PATCH TOPICALLY TO THE SKIN DAILY Active Active Problems No known active problems Encounters Date Type Department Care Team Description 07/31/2024 10:10 AM EDT Office Visit [facility] DENTAL [address] [place] [address] Rosalee Henry Stage 2 grade B generalized periodontitis per AAP/EFP 2017 classification (Primary Dx); Dental calculus; Accretions on teeth; Encounter for dental examination from Last 3 Months Social History Tobacco Use Types Packs/Day Years Used Date Smoking Tobacco: Former Cigarettes Smokeless Tobacco: Former Tobacco Cessation:Counseling Given: Not Answered Alcohol Use Standard Drinks/Week Comments Not Currently 0 (1 standard drink = 0.6 oz pur e alcohol) Sex and Gender Information Value Date Recorded Sex Assigned at Male 06/23/2022 9:55 AM EST Legal Sex Male 5:35 PM EDT Gender Identity Male 06/23/2022 9:55 AM EST Sexual Orientation Choose not to disclose 2022 9:55 AM EST Plan of Treatment Upcoming Encounters Date Type Department Care Team (Late st Contact Info) Description 08/18/2024 9:30 AM EDT Office Visit [facility] DENTAL [address] [place] [address] Ana Bearden LLD [address] [place] [address] 05/07/2025 9:30 AM EST Office Visit [facility] DENTAL [address] [place] [address] Rosalee Henry Health Maintenance Due Date Last Done Comments Depression Screening 1945 Lipid Panel 1945 SDOH Screening 1945 Alcohol/Substance Use Screening 1959 Hepatitis C Screening 12/07/1965 Hepatitis A Vaccines (1 of 2 - Risk 2-dose series) 12/07/1966 Hepatitis B Vaccines (1 of 3 - Risk 3-dose series) 2007 RSV Patients and Patients Aged 60 years or older (1 - 1-dose 75+ series) 12/07/2022 COVID-19 Vaccine ( season) 2023 03/25/2021, 03/21/2021, 06/27/2020, Additional history exists Dental Oral Exam 01/31/2025 07/31/2024, , 02/23/2023, Additional history exists Dental Prophylaxis 01/31/2025 07/31/2024, 1 , 02/23/2023, Additional history exists Tobacco Screening 07/31/2025 07/31/2024 Dental X-Ray: Bitewings 08/01/2025 08/01/19 25, 02/23/2023, 12/29/2021, Additional history exists Dental X-Ray: Full Mouth 02/24/2026 023, 12/16/2015, 03/19/2008, Additional history exists DTaP/Tdap/Td Vaccines (3 - Td or Tdap) 12/14/2030 12/14/2020, 08/18/2010 Pneumococcal Vaccine: 50+ Years Completed 09/09/2015, 03/26/2014, 09/30/2008 Zoster Vaccines Completed 10/06/2022, 04/08/2022, 07/03/2022, Additional history exists Influenza Vaccine Completed 01/25/2024, , 01/22/2023, Additional history exists HIB Vaccines Aged Out No longer eligi ble based on patient's age to complete this topic HPV Vaccines Aged Out No longer eligi ble based on patient's age to complete this topic IPV Vaccines Aged Out No longer eligi ble based on patient's age to complete this topic Meningococcal Vaccine Aged Out No sahly sony eligible based on patient's age to complete this topic RSV under 20 months Aged Out No longe r eligible based on patient's age to complete this topic Rotavirus Vaccines Aged Out No longer eligible based on patient's age to complete this topic Procedures Procedure Name Priority Date/Time Associated Diagnosis Comments BITEWINGS - 4 RADIOGRAPHIC IMAGES Routine 07/31/2024 10:10 AM EDT Full PROPHYLAXIS - ADULT Routine 025 10:10 AM EDT PERIODIC ORAL EVALUATION - ESTABLISHED PATIENT Routine 07/31/2024 10:10 AM EDT INTRAORAL - COMPLETE SERIES OF RADIOGRAPHIC IMAGES Routine 02/23/2023 10:30 AM EST from Last 3 Months or Most Recently Relevant to Health Maintenance Insurance [facility] [employer]
--- OUTSIDE RECORDS SUMMARY | 2024-08-12 10:10 | XMS_ITS | Encounter Summary ---
Author Organization [employer] Address [address] 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
--- OUTSIDE RECORDS SUMMARY | 2024-08-12 10:10 | XMS_ITS ---
Author Name [facility] [place] [facility] [place] Address [address] [place] [id number] Care Team Providers Care Pharmaceutical Physician Name Role Phone WALLACE MARTINEZ Primary Care Provider Unavailabl e Insurance [...] PART A Nov 14, 2012 PART A [id number] [facility] RUELLE,DA VID PATIENT MEDICARE (WNR) MEDICARE () PART B Nov 14, 2012 PART B [id number] [facility] RUELLE,DA VID PATIENT MEDICARE (WNR) MEDICARE () PART B Nov 14, 2012 PART B [id number] RUELLE,DA VID PATIENT MEDICARE (WNR) MEDICARE () PART A Nov 14, 2012 PART A [id number] RUELLE,DA VID PATIENT MEDICARE (WNR) MEDICARE () PART B Nov 14, 2012 PART B [id number] RUELLE,DA VID PATIENT MEDICARE (WNR) MEDICARE (M) PART A Nov 14, 2012 PART A [id number] [phone] SVETA MOJICA PATIENT FOR LIFE TFL* Nov 14, 2012 [id number] ROLA MOJICA III PATIENT Selected Encounter This section includes the [place] on [place] at [place] for the Encounter. Date/Time Encounter Type Encounter Description Reason Provider Source Feb 13, 2024 09:00 AM OFFICE O/P EST LOW 20 MIN PRIMARY CARE/MEDICINE ICD-10-CM H90.3 Sensorineural hearing loss, bilateral WALLACE MARTINEZ IHMaria Fernanda Encounter Template Text not used by [place] Assessments - Encounter Diagnoses This section includes the primary and secondary diagnoses documented for the Encounter. Date/Time Primary/Secondary Diagnosis Diagnosis Name Provider Source Feb 13, 2024 09:24 AM PRIMARY Sensorineural hearing loss, bilateral WALLACE MARTINEZ [place] [facility] [place] [facility] Feb 13, 2024 09:24 AM SECONDARY Dermatitis, unspecified WALLACE MARTINEZ [place] [facility] [place] [facility] Plan of Treatment: Future Appointments [...] Date/Time Appointment Type Appointme nt Facility Name Feb 28, 2024 10:00 AM AMBULATORY - NONE [facility] [place] [facility] Mar 18, 2024 01:00 PM AMBULATORY - MEDICINE [place] [facility] [place] [facility] Mar 18, 2024 02:00 PM AMBULATORY - NONE [facility] [place] [facility] Mar 27, 2024 09:00 AM AMBULATORY - REHAB MEDICIN E [facility] [place] [facility] Apr 10, 2024 09:30 AM AMBULATORY - MEDICINE [place] [facility] [place] [facility] Apr 18, 2024 11:15 AM AMBULATORY - MEDICINE [place] [facility] [place] [facility] Apr 28, 2024 11:00 AM AMBULATORY - REHAB MEDICIN E [facility] [place] [facility] Vital Signs: All taken on the encounter date This section contains inpatient and outpatient Vital Signs collected on the date of the Encounter. Date/Time Temperature Pulse Blood Pressure Respiratory Rate SP02 Pain Height Weight Body Mass Index Source Feb 13, 2024 09:20 AM 119/71 [facility] Feb 13, 2024 08:45 AM 99.2 83 145/73 16 96 0 66 220.5 36 [facility] Social History: Smoking Status (Most current) and Tobacco Use (All prior to encounter date) This section includes the most current, and the historical, smoking and tobacco- related health factors from the [place] facility where the Encounter took place. Current Smoking Status This section includes the most current smoking, or tobacco-related health factor, from the [place] facility where the Encounter took place. Date/Time Current Smoking Status Comment Facil ity Feb 13, 2024 09:00 AM [place]-TOBAC[place] QUIT 15 YRS OR MORE [facility] Tobacco Use History This section includes a history of the smoking, or tobacco-related health factors, that were collected on or before the date of the Encounter. The data comes from the [place] facility where the Encounter took place. Date/Time Smoking Status/Tobacco Use Comment F acility Feb 13, 2024 09:00 AM [place]-TOBAC[place] QUIT 15 YRS OR MORE [facility] Jan 02, 2022 04:16 PM VA-TOBACCO FORMER USER [facility] Jan 02, 2022 04:16 PM [place] QU[place] 1 TO < 5 YRS [facility] Advance Directives: All historical and current [...] Encounter. Date/Time Encounter Note(s) Provider Source Feb 13, 2024 09:18 AM PHYSICIAN NOTE: LOCAL TITLE: MD NOTE STANDARD TITLE: PHYSICIAN NOTE DATE OF NOTE: FEB 13, 2024@09:18 ENTRY DATE: FEB 13, 2024@09:18:19 AUTHOR: WALLACE MARTINEZ COSIGNER: URGENCY: STATUS: COMPLETED Patient Name: ROLA MOJICA III VITALS: Patient temperature: 99.2 F [37.3 C] (02/13/2024 08:45) Blood pressure: 145/73 (02/13/2024 08:45) Patient height: 66 in [167.6 cm] (02/13/2024 08:45) Patient weight: 220.5 lb [100.02 kg] (02/13/2024 08:45) Patient BMI: BMI: 35.7 Patient pulse: 83 (02/13/2024 08:45) Patient respiration: 16 (02/13/2024 08:45) Patient Pulse Oximetry: 96% (02/13/2024 08:45) Pain Ratin (02/13/2024 08:45) Active VA Medications: Active Outpatient Medications (including Supplies): Active Non-VA Medications Status 1) Non-VA ALBUTEROL 90MCG (CFC-F) 200D ORAL INHL 2 PUFFS ACTIVE BY MOUTH EVERY 4 HOURS NEEDED 2) Non-VA CETIRIZINE HCL 10MG TAB 10MG BY MOUTH ONCE ACTIVE DAILY 3) Non-VA FLUTICASONE PROP 220MCG 120D ORAL INHL 2 PUFFS ACTIVE BY MOUTH ONCE DAILY 4) Non-VA MEMANTINE HCL 10MG TAB 10MG BY MOUTH TWICE ACTIVE DAILY 5) Non-VA RIVASTIGMINE 9.5MG/24HR PATCH 1 PATCH TO SKIN ACTIVE ONCE DAILY Remote Medications: Active Medications from Remote Data PREDNISONE 20MG TAB Sig: Quantity: 10 Days Supply: 5 Original # of Refills: 0 Rx Expiration: Last filled 03/17/17 at [facility] #[id number] (Active) METHYLPREDNISOLONE 4MG TAB Sig: Quantity: 21 Days Supply: 6 Original # of Refills: 0 Rx Expiration: Last filled 03/05/18 at [facility] #[id number] (Active) OMEPRAZOLE 20MG CAP,EC Sig: Quantity: 30 Days Supply: 30 Original # of Refills: 11 Rx Expiration: Last filled 04/02/17 at [facility] #[id number] (Active) CODEINE 10MG/GUAIFENESIN 100MG/5ML LIQUID Sig: Quantity: 150 Days Supply: 15 Original # of Refills: 0 Rx Expiration: Last filled 03/17/17 at [facility] #[id number] (Active) OMEPRAZOLE 20MG CAP,EC Sig: Quantity: 30 Days Supply: 30 Original # of Refills: 11 Rx Expiration: Last filled 11/29/16 at [facility] #[id number] (Active) ALBUTEROL SO4 90MCG/ACTUAT (CFC-F) INHL,ORAL,6.7GM Sig: Quantity: 8.5 Days Supply: 17 Original # of Refills: 0 Rx Expiration: Last filled 03/17/17 at [facility] #[id number] (Active) LEVOFLOXACIN 500MG TAB Sig: Quantity: 10 Days Supply: 10 Original # of Refills: 0 Rx Expiration: Last filled 02/14/14 at [facility] 68820 #[id number] (Active) CIPROFLOXACIN HCL 500MG TAB Sig: Quantity: 6 Days Supply: 3 Original # of Refills: 0 Rx Expiration: Last filled 10/14/15 at [facility] #[id number] (Active) OMEPRAZOLE 20MG CAP,EC Sig: Quantity: 30 Days Supply: 30 Original # of Refills: 11 Rx Expiration: Last filled 01/04/17 at [facility] #[id number] (Active) AMOXICILLIN TRIHYDRATE 875MG/CLAVULANATE K 125MG TAB Sig: Quantity: 20 Days Supply: 10 Original # of Refills: 0 Rx Expiration: Last filled 03/06/08 at [facility] [id number] #[id number] (Active) CICLOPIROX 1% SHAMPOO,TOP Sig: Quantity: 120 Days Supply: 12 Original # of Refills: 5 Rx Expiration: Last filled 09/30/08 at [facility] [id number] #[id number] (Active) OXYCODONE HCL 5MG/ACETAMINOPHEN 325MG TAB Sig: Quantity: 15 Days Supply: 3 Original # of Refills: 0 Rx Expiration: Last filled 02/14/14 at [facility] 42024 #[id number] (Active) OMEPRAZOLE 20MG CAP,EC Sig: Quantity: 30 Days Supply: 30 Original # of Refills: 11 Rx Expiration: Last filled 05/22/17 at [facility] #[id number] (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 Crowder History of present illness Patient has been evaluated by audiology and has bilateral hearing aids. He reports that certain noises hurt his ears. His hearing aids have been adjusted. Physical examination Well-developed well-nourished male in no acute distress Ears without erythema or cerumen 5 mm bland lesion left upper eyelid without erythema 5 mm galicia lesion left orbit without erythema Assessment and plan: 1. Noises heart: No improvement with hearing aid adjustment from audiology Plan: ENT 2. Skin lesion left upper eyelid: Possible skin cancer Plan: Oculoplastics 3. Skin lesion right orbit: Possible skin cancer Plan: Dermatology Follow-up 6 months Medication Reconciliation: Outpatient: Has the patient been taking medications as documented in the EMLR? YES: The patient has been taking medications as documented in the EMLR. Essential Medication List for Review used to complete this medication reconciliation. INCLUDED IN THIS LIST: Alphabetical list of active outpatient prescriptions dispensed from this [place] (local) and dispensed from another [place] or [place] facility (remote) as well as [...] whether with a VA or non-VA provider. COVID-19 Immunization: Refused Moderna Monovalent COVID-19 vaccine Immunization: COVID-19 (MODERNA), MRNA, LNP-S, PF, 50 MCG/0.5 ML (AGES 12+ YEARS) Refusal Reason: PATIENT DECISION Patient refuses all immunization(s) in the COVID-19 group Date Documented: 02/13/24 09:23 /fabian/ Wallace Yarbrough. MD Brett Staff Physician Signed: 02/13/2024 09:24 WALLACE MARTINEZ [place] [facility] [facility] Feb 13, 2024 08:51 AM PREVENTIVE MEDICIN E NURSING NOTE: LOCAL TITLE: CLINICAL REMINDERS/NURSING STANDARD TITLE: PREVENTIVE MEDICINE NURSING NOTE DATE OF NOTE: FEB 13, 2024@08:51 ENTRY DATE: FEB 13, 2024@08:51:06 AUTHOR: RENETTA ERICKSON COSIGNER: URGENCY: STATUS: COMPLETED Tobacco Use Screening: The patient is a former tobacco user. The patient quit fifteen or more years ago. Alcohol Use Screen (AUDIT-C): Alcohol Screen: SCREEN FOR ALCOHOL (AUDIT-C) An alcohol screening test (AUDIT-C) was negative (score=0). 1. How often did you have a drink containing alcohol in the past year? Consider a drink to be a 12 ounce can or bottle of regular beer, 8 ounces of malt liquor, a 5 ounce glass of table wine, or a 1.5 ounce shot of liquor (like scotch, gin, or vodka). Never 2. How many drinks containing alcohol did you have on a typical day when you were drinking in the past year? Response not required due to responses to other questions. 3. How often did you have six or more drinks on one occasion in the past year? Response not required due to responses to other questions. Falls & Incontinence Screen: Falls Screen: 1. One fall with no injury. Incontinence Screen No incontinence. Depression Screening: Perform PHQ-2 A PHQ-2 screen was performed. The score was 0 which is a negative screen for depression. Over the past two weeks, how often have you been bothered by the following problems? 1. Little interest or pleasure in doing things Not at all 2. Feeling down, depressed, or hopeless Not at all Advance Directive Screen MH AD: Patient has an Advance Directive on file at this [facility]. No updates are needed at this time. The patient received education about Advance Directives and written notification of his/her rights. Comment: up to date Suicide Screen: C-SSRS Screening [place] Suicide Severity Rating Scale (C-SSRS) screener 1. Over the past month, have you wished you were or wished you could go to sleep and not wake up? No 2. Over the past month, have you had any actual thoughts of killing yourself? No 3. Over the past month, have you been thinking about how you might do this? Response not required due to responses to other questions. 4. Over the past month, have you had these thoughts and had some intention of acting on them? Response not required due to responses to other questions. 5. Over the past month, have you started to work out or worked out the details of how to kill yourself? Response not required due to responses to other questions. 6. If yes, at any time in the past month did you intend to carry out this plan? Response not required due to responses to other questions. 7. In your lifetime, have you ever done anything, started to do anything, or prepared to do anything to end your life (for example, collected pills, obtained a gun, gave away valuables, went to the roof but didn't jump)? No 8. If YES, was this within the past 3 months? Response not required due to responses to other questions. (Optional) Whole Health Documentation: What matters the most to you? What motivates you to be healthy? (MAP) Response: my Influenza Immunization: The patient has received the seasonal influenza vaccine for the current season at another location. Documented: INFLUENZA, UNSPECIFIED FORMULATION Historical Date Administered: Jan 22, 2024 Series: Complete Outside Location: Outside Healthcare Provider Information Source: FROM OTHER REGISTRY Comment: Natalie estrada/ RENETTA ERICKSON LPN LPN Signed: 02/13/2024 09:01 RENETTA ERICKSON [facility]
--- OUTSIDE RECORDS SUMMARY | 2024-08-12 10:10 | XMS_ITS | Encounter Summary ---
Author Name [facility] [place] [facility] [place] [facility] [place] Address [address] [place] [id number] Care Team Providers Care Manager Change Name Role Phone ABBIE MARTINEZ Primary Care [...] PART A Nov 14, 2012 PART A [id number] [facility] RUELLE,DA VID PATIENT MEDICARE (WNR) MEDICARE () PART B Nov 14, 2012 PART B [id number] [facility] RUELLE,DA VID PATIENT MEDICARE (WNR) MEDICARE () PART A Nov 14, 2012 PART A [id number] RUELLE,DA VID PATIENT MEDICARE (WNR) MEDICARE () PART B Nov 14, 2012 PART B [id number] RUELLE,DA VID PATIENT MEDICARE (WNR) MEDICARE () PART B Nov 14, 2012 PART B [id number] [phone] RUELLE,DA VID PATIENT MEDICARE (WNR) MEDICARE () PART A Nov 14, 2012 PART A [id number] RUSVETA TOBAR VID PATIENT FOR LIFE TFL* Nov 14, 2012 [id number] [phone] ROLA MOJICA III PATIENT Selected Encounter This section includes the information on record at [place] for the Encounter. Date/Time Encounter Type Encounter Description Reason Provider Source Nov 30, 2023 11:00 AM [employer] MULTIFOCAL OPTOMETRY ICD-10-CM H25.13 Age-related nuclear cataract, bilateral SEBASTIÁN SIGALA Maria Fernanda Encounter Template Text not used by [place] Assessments - Encounter Diagnoses This section includes the primary and secondary diagnoses documented for the Encounter. Date/Time Primary/Secondary Diagnosis Diagnosis Name Provider Source Nov 30, 2023 12:05 PM PRIMARY Age-related nuclear cataract, bilateral SEBASTIÁN SIGALA [place] [facility] [place] [facility] Nov 30, 2023 12:05 PM SECONDARY Puckering of macula, right eye SEBASTIÁN SIGALA [place] [facility] [place] [facility] Nov 30, 2023 12:05 PM SECONDARY Unspecified disorder of refraction SEBASTIÁN SIGALA [place] [facility] [facility] Plan of Treatment: Future Appointments (+ 6 months) and Future Tests (+/- 45 days) The Plan of Treatment section includes future care activities for the patient from all [place] treatmentfacilities. This section includes future appointments and future orders which are active, pending or scheduled. Future Appointments This section includes appointments that were scheduled to occur 6 months from the date of the Encounter, up to a maximum of 20 appointments. The data comes from all [place] treatment facilities. Appointment Date/Time Appointment Type Appointme nt Facility Name Feb 13, 2024 09:00 AM AMBULATORY - MEDICINE [place] [facility] [facility] Feb 28, 2024 10:00 AM AMBULATORY - NONE [facility] [place] [facility] Mar 18, 2024 01:00 PM AMBULATORY - MEDICINE [place] [facility] [facility] Mar 18, 2024 02:00 PM AMBULATORY - NONE [facility] [place] [facility] Mar 27, 2024 09:00 AM AMBULATORY - REHAB MEDICIN E [facility] [place] [facility] Apr 10, 2024 09:30 AM AMBULATORY - MEDICINE [facility] Apr 18, 2024 11:15 AM AMBULATORY - MEDICINE [facility] Apr 28, 2024 11:00 AM AMBULATORY - REHAB MEDICIN E [facility] Social History: Smoking Status (Most current) and Tobacco Use (All prior to encounter date) This section includes the most current, and the historical, smoking and tobacco- related health factors from the [place] facility where the Encounter took place. Current Smoking Status This section includes the most current smoking, or tobacco-related health factor, from the [place] facility where the Encounter took place. Date/Time Current Smoking Status Comment Facil ity Jan 02, 2022 04:16 PM VA-TOBACCO FORMER USER [facility] Tobacco Use History This section includes a history of the smoking, or tobacco-related health factors, that were collected on or before the date of the Encounter. The data comes from the [place] facility where the Encounter took place. Date/Time Smoking Status/Tobacco Use Comment F acility Jan 02, 2022 04:16 PM [place]-TOBACCO QUIT 1 TO < 5 YRS [facility] Advance Directives: All historical and current Section Date Range: From patient's date of to the date document was created. This section includes ALL of a patient's completed or amended [place] Advance and Rescinded Directives. The entries below indicate that a directive exists for the patient, but an actual copy is not included with this document. The data comes from all [place] facilities. Date Advance Directives Provider Source Jun 19, 2007 ADVANCE DIRECTIVE [facility] Encounter Notes: All associated encounter notes This section contains the clinical notes associated to the Encounter. Date/Time Encounter Note(s) Provider Source Nov 30, 2023 11:20 AM OPTOMETRY NOTE: LOCAL TITLE: OPTOMETRY NOTE(T) STANDARD TITLE: OPTOMETRY NOTE DATE OF NOTE: NOV 30, 2023@11:20 ENTRY DATE: NOV 30, 2023@11:20:20 AUTHOR: SEBASTIÁN SIGAAL COSIGNER: URGENCY: STATUS: COMPLETED I saw this patient in conjunction with the student and agree to the stated findings and plan after reviewing both history and repeating castro elements of physical exam. Patient presents for annual comprehensive exam well-known to me with history of none visually significant nuclear sclerotic cataracts, epiretinal membrane OD and refraction disorder. Otherwise no acute ocular disease was seen today. Ordered PAL with transitions secondary to glare sensitivity. The patient will return in 12 months or sooner if any problems arise. /fabian/ SEBASTIÁN SIGALA OD STAFF SKEIN BLEACHER Signed: 11/30/2023 12:05 SEBASTIÁN SIGALA [place] [facility] [place] [facility] Nov 30, 2023 10:22 AM OPTOMETRY NOTE: LOCAL TITLE: OPTOMETRY NOTE STANDARD TITLE: OPTOMETRY NOTE DATE OF NOTE: NOV 30, 2023@10:22 ENTRY DATE: NOV 30, 2023@10:22:48 AUTHOR: DOUG CORCORAN EXP COSIGNER: SEBASTIÁN SIGALA URGENCY: STATUS: COMPLETED Active problems - Computerized Problem List is the source for the followin. Impaired Fasting Glucose (SCT 026319494) 2. Chronic Rhinitis (SCT 39270736) 3. Somatic dysfunction of lumbar region 4. Exposure to potentially hazardous substance 5. Alzheimer's disease 6. History of colonoscopy 7. Obesity 8. Sleep apnea 9. Prostate specific antigen abnormal 10. Malignant tumor of colon 11. Cortical senile cataract 12. Hyperlipidemia (SNOMED CT 61564854) 13. Peripheral Neuropathy 14. Lumbar Radiculopathy 15. Lateral epicondylitis * 16. Drusen 17. Asthma * 18. Osteoarthrosis involving the knee 19. Hearing loss (SNOMED CT 40561106) 20. Tinnitus (SNOMED CT 35306376) 21. Tinea * Active Outpatient Medications (including Supplies): Active Non-VA [...] 1 PATCH TO SKIN ACTIVE ONCE DAILY Allergies: Patient has answered NKA All medications including those prescribed by outside VA's, community providers, and all OTC meds were reviewed and reconciled with patient to the best of their abilities. This 77 year old MALE is seen today for CEE Chief Complaint: Pt presents with c/o headache when reading or looking at computer with current progressives. JORGENSEN resolves when he stops reading and comes on after about 30 minutes. Upon further discussion, pt reports that symptoms with reading seem more like his eyes feel tired. No ocular comfort concerns otherwise. Pt requests a new pair of progressive specs today. OHx: ERM OU Drusen OU Cataracts OU Ref error and presbyopia OU (-) Pain: (-) JORGENSEN: (-) Diplopia: (-) Flashes: (-) Floaters: (-) Amaurosis Fugax/Tia's: (-) Eye Injury: (-) Eye Surgery: (-) TBI FOHx: (-) Glaucoma/ARMD/Blindness VITALS (most recent, as listed in the electronic record): B/P: 125/66 (08/13/2023 09:26) Pulse: 74 (08/13/2023 09:26) Temperature: 98 F [36.7 C] (08/13/2023 09:26) Weight: 190 lb [86.18 kg] (08/13/2023 09:26) Height: 66 in [167.6 cm] (08/13/2023 09:26) BMI: BMI: 30.7 PERTINENT LABS: HEMOGLOBIN A1C TREND Collection DT Spec HGBA1c 08/09/2023 08:46 BLOOD 5.5 01/23/2023 08:00 BLOOD 5.4 01/03/2022 07:58 BLOOD 5.4 (-) Smoker/Length of Time/PPD: Current Rx with last BCVA: OD +1.00 -1.25 x 012 20/20-1 OS +2.00 -0.25 x 110 20/25-2 Add: +2.50 DVA ( )sc ( x )cc phoropter OD: 20/20-2 OS: 20/25 Pupils: PERRL (-)APD EOMs: SAFE OU, (-)Pain/Diplopia CVF (facial, peripheral): FTFC OU Subjective Refraction: OD: +1.00-1.57s796 2020-2 OS: +2.00-0.05l743 20/25 Add: +2.50 All the above performed by student, reviewed by attending Anterior segment: Performed by student, repeated by attending * Lids: dermatochalasis OU Conj: white and quiet OU Cornea: clear OU AC: 3/4:1 T&N and quiet OU Iris: flat and clear OU Lens: 1+ NS with moderate vacuoles OU, tr PSC OS Tonometry: iCare Performed by student, reviewed by attending * OD 13 mmHg OS 14 mmHg Time: 11:14am Fundus exam: Dilated: 11:14am Dilating Drops: 1GTT 1 % Tropicamide OU & 1GTT 2.5% Phenylephrine OU(Pt. ed. on side effects, dilation warning given and verbal consent obtained) Patient advised not to drive if they feel they have any symptoms which could affect their ability to drive safely. Patient advised not to engage in any activities which could put themselves or others at risk if they feel they have any symptoms which could affect their ability to perform those activities safely. Performed by student, repeated by attending * Vit: clear OU C/D: 0.40/0.40 OD, 0.35/0.35 OS Disc: OD: pink and distinct OS: pink and distinct Macula: ERM OD, clear OS PPole: OD: clear OS: clear Vessels: OD: 1/2 OS: 1/2 Periph: flat and intact (-)holes, tears, detachments 360 OU Assessment/Plan: 1. Epiretinal membrane OD -not visually significant -stable -monitor at CEE 2. Combined-form cataracts OU -mildly visually significant OS>OD -continue to monitor at CEE 3. 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 Education: After discussion and answering all 's questions, demonstrated and verbalized understanding of diagnosis and treatment. Yes [x] No [ ] Medication Reconciliation: Outpatient: Has the patient been taking medications as documented in the EMLR? YES: The patient has been taking medications as documented in the EMLR. Essential Medication List for Review used to complete this medication reconciliation. INCLUDED IN THIS LIST: Alphabetical list of active outpatient prescriptions dispensed from this [facility] (local) and dispensed from another VA or DoD facility (remote) as well as [...] whether with a VA or non-VA provider. /fabian/ DOUG CORCORAN OPTOMETRY STUDENT Signed: 11/30/2023 12:16 /fabian/ SEBASTIÁN SGIALA OD STAFF SKEIN BLEACHER Cosigned: 11/30/2023 12:32 [facility] CORCORAN [facility]
--- OUTSIDE RECORDS SUMMARY | 2024-08-12 10:10 | XMS_ITS | Continuity of Care Document ---
Author Name [facility] Organization [facility] Care Team Providers Care Occupational Therapy Department Chair Name Role Phone [facility] Unavailable Unavailable Problems Combined list of problems from Department of Defense and Veterans Affairs facilities. It does not include entries that were removed or entered in error. 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) Active Condition [facility] Drusen Active Condition [facility] Exposure to potentially hazardous substance Active Condition [facility] Hearing loss (SNOMED CT 75563460) Active Condition [facility] History of colonoscopy Active Condition Jan 28, 2019 Entered By: DAIN ALLEN Comment: 02/28/2018 repeat 2020 [facility] Hyperlipidemia (SNOMED CT 79994067) Active Condition [facility] Impaired Fasting Glucose (SCT 788186088) Active Condition [facility] Lateral epicondylitis * (ICD-9-CM 726.32) Active Condition [facility] Lumbar Radiculopathy (ICD-9-CM 724.4) Active Condition [facility] Obesity Active Condition [facility] Osteoarthrosis involving the knee (ICD-9-CM 715.98) Active Condition [facility] Peripheral Neuropathy (ICD-9-CM 355.9) Active Condition [facility] Prostate specific antigen abnormal [facility] Somatic dysfunction of lumbar region Active Condition [facility] Tinea * (ICD-9-CM 110.9) Active Condition [facility] Tinnitus (SNOMED CT 05617433) Active Condition [facility] Elevated blood pressure reading without diagnosis of hypertension (ICD-9-CM 796. [facility] Elevated Prostate Specific Antigen (PSA) Inactive Condition 08/26/2017 Jun 19, 2007 Entered By: JOSE RUSS Comment: Under the care of local urologyMar 2007 Entered By: JOSE RUSS Comment: Biopsies negative [facility] NO VACCINATION-PT REFUSE Inactive Condition 08/18/2010 [facility] Obesity (SNOMED CT 025200151) Inactive Condition 01/28/2019 [facility] Somatic dysfunction of pelvic region Inactive Condition 08/13/2023 [facility] Somatic dysfunction of sacral region Inactive Condition 08/13/2023 [facility] Somatic dysfunction of thoracic region Inactive Condition 08/13/2023 [facility] Diagnosis: ICD-10-CM Z46.1 Encounter for fitting and adjustment of hearing aid Active Diagnosis [facility] Diagnosis: ICD-10-CM H90.3 Sensorineural hearing loss, bilateral Active Diagnosis [facility] Diagnosis: ICD-10-CM L82.1 Other seborrheic keratosis Active Diagnosis [facility] Diagnosis: ICD-10-CM Z13.89 Encounter for screening for other disorder Active Diagnosis [facility] Diagnosis: ICD-10-CM G47.30 Sleep apnea, unspecified Active Diagnosis [facility] Diagnosis: ICD-10-CM Z46.0 Encounter for fit/adjst of spectacles and contact lenses Active Diagnosis [facility] Diagnosis: ICD-10-CM H25.13 Age-related nuclear cataract, bilateral Active Diagnosis [facility] Diagnosis: ICD-10-CM J45.909 Unspecified asthma, uncomplicated Active Diagnosis [facility] Diagnosis: ICD-10-CM Z02.89 Encounter for other administrative examinations Active Diagnosis [facility] Diagnosis: ICD-10-CM J31.0 Chronic rhinitis Active Diagnosis [facility] Medications Combined list of outpatient medications from Department of Defense and Veterans Affairs facilities.Medications provided include 1) outpatient medications from the last 15 months, and 2) patient-reported medications. Medication Details Route Status Patient Instructions Prescription Expires Prescription Number Last Dispense Date Ordering Provider Order Date Order Qty Source ALBUTEROL 90MCG/ACTUA T (CFC-F) INHL,ORAL,8 .5GM DOSE COUNTER INHALE 2 PUFFS BY MOUTH EVERY 4 HOURS NEEDED RESPIR ATORY (INHAL ATION) ACTIVE BRITTNEY HARRIS 2023 [facility] [place] AMOX TR-POTASSIU M CLAVULANATE (AMOXICILLI N/POTASSIUM CLAV), 875-125 MG, TABLET, ORAL, [facility], 20 ea. BOTTLE Active [id number] 2023 14 Pharmac y Data Transac tion Service Facilit y CARBAMIDE PEROXIDE 6.5%/GLYCER IN SOLN,OTIC INSTILL 5 DROPS INTO THE AFFECTED EAR(S) TWICE DAILY FOR EAR WAX BLOCKAGE [facility]UR[facility] LAR (OTIC) 04/26/2024 [id number] AZALEA MARTINEZ 2023 15 [facility] CETIRIZINE HCL (cetirizine HCl), 10 MG, TABLET, ORAL, 'S [facility], 500 ea. BOTTLE Active [id number] 2023 90 Pharmac y Data Transac tion Service Facilit y CETIRIZINE HCL (cetirizine HCl), 10 MG, TABLET, ORAL, '[facility], 500 ea. BOTTLE Active [id number] 2023 90 Pharmac y Data Transac tion Service Facilit y CETIRIZINE HCL 10MG TAB TAKE ONE TABLET BY MOUTH ONCE DAILY ORAL ACTIVE JAMI ESPINOSA [facility]AWED [facility] DOXYCYCLINE HYCLATE (doxycyclin e hyclate), 100 MG, TABLET, ORAL, [employer], 50 ea. BOTTLE Active [id number] 2023 28 Pharmac y Data Transac tion Service Facilit y FLUTICASONE PROPIONATE 220MCG/SPRA Y AEROSOL,INH L,ORAL,12GM INHALE 2 PUFFS BY MOUTH ONCE DAILY RESPIR ATORY (INHAL ATION) ACTIVE JAMI ESPINOSA JAWED [facility] FLUTICASONE -SALMETEROL HFA (fluticason e propionate/ salmeterol xinafoate), 115-21MCG, HFA AER AD, INHALATION, [facility], 12 g CANISTER Cancele d [id number] : 2023 0 Pharmac y Data Transac tion Service Facilit y FLUTICASONE -SALMETEROL HFA (fluticason e propionate/ salmeterol xinafoate), 230-21MCG, HFA AER AD, INHALATION, [facility], 12 g CANISTER Cancele d [id number] : 2023 0 Pharmac y Data Transac tion Service Facilit y FLUTICASONE -SALMETEROL HFA (fluticason e propionate/ salmeterol xinafoate), 230-21MCG, HFA AER AD, INHALATION, [facility], 12 g CANISTER Cancele d [id number] : 2023 0 Pharmac y Data Transac tion Service Facilit y FLUTICASONE -SALMETEROL HFA (fluticason e propionate/ salmeterol xinafoate), 230-21MCG, HFA AER AD, INHALATION, [facility], 12 g CANISTER Active [id number] 2023 36 Pharmac y Data Transac tion Service Facilit y FLUTICASONE -SALMETEROL HFA (fluticason e propionate/ salmeterol xinafoate), 230-21MCG, HFA AER AD, INHALATION, [facility], 12 g CANISTER Cancele d [id number] : 2023 0 Pharmac y Data Transac tion Service Facilit y FLUTICASONE -SALMETEROL HFA (fluticason e propionate/ salmeterol xinafoate), 230-21MCG, HFA AER AD, INHALATION, [facility], 12 g CANISTER Cancele d [id number] : 2023 0 Pharmac y Data Transac tion Service Facilit y FLUTICASONE -SALMETEROL HFA (fluticason e propionate/ salmeterol xinafoate), 230-21MCG, HFA AER AD, INHALATION, [facility], 12 g CANISTER Cancele d [id number] : 2023 0 Pharmac y Data Transac tion Service Facilit y FLUTICASONE -SALMETEROL HFA (fluticason e propionate/ salmeterol xinafoate), 230-21MCG, HFA AER AD, INHALATION, [facility], 12 g CANISTER Active [id number] 2023 12 Pharmac y Data Transac tion Service Facilit y FLUTICASONE -SALMETEROL HFA (fluticason e propionate/ salmeterol xinafoate), 230-21MCG, HFA AER AD, INHALATION, [facility], 12 g CANISTER Active [id number] 2023 12 Pharmac y Data Transac tion Service Facilit y FLUTICASONE -SALMETEROL HFA (fluticason e propionate/ salmeterol xinafoate), 230-21MCG, HFA AER AD, INHALATION, [facility], 12 g CANISTER Active [id number] 2023 12 Pharmac y Data Transac tion Service Facilit y FLUTICASONE -SALMETEROL HFA (fluticason e propionate/ salmeterol xinafoate), 230-21MCG, HFA AER AD, INHALATION, [facility], 12 g CANISTER Active [id number] 2023 12 Pharmac y Data Transac tion Service Facilit y MEMANTINE HCL (MEMANTINE HCL), 10 MG, TABLET, ORAL, SUN PHARMA GLOB, 60 ea. BOTTLE Active [id number] 2023 180 Pharmac y Data Transac tion Service Facilit y MEMANTINE HCL (MEMANTINE HCL), 10 MG, TABLET, ORAL, SUN PHARMA GLOB, 60 ea. BOTTLE Active [id number] 2023 180 Pharmac y Data Transac tion Service Facilit y MEMANTINE HCL 10MG TAB TAKE ONE TABLET BY MOUTH TWICE DAILY ORAL ACTIVE JAMI ESPINOSA JAWRANDELL 2022 [facility] PREDNISONE (prednisone ), 20 MG, TABLET, ORAL, NOVITIUM/AN I PH, 500 ea. BOTTLE Active [id number] 2023 10 Pharmac y Data Transac tion Service Facilit y PREDNISONE (prednisone ), 20 MG, TABLET, ORAL, NOVITIUM/AN I PH, 500 ea. BOTTLE Active [id number] 2023 5 Pharmac y Data Transac tion Service Facilit y RIVASTIGMIN E (rivastigmi ne), 9.5MG/24HR, PATCH TD24, TRANSDERM, [employer], [address] Cance[address] [id number] : 2023 0 Pharmac y Data Transac tion Service Facilit y RIVASTIGMIN E (rivastigmi ne), 9.5MG/24HR, PATCH TD24, TRANSDERM, BRECKENRIDG E, [address] Cancele d [id number] : 2023 0 Pharmac y Data Transac tion Service Facilit y RIVASTIGMIN E 9.5MG/24HR PATCH APPLY 1 PATCH TO SKIN ONCE DAILY TRANSD ERMAL ACTIVE VIKTORIYA NUÑEZ 2022 [facility] [place] Immunizations Combined list of available immunizations from the Department of Defense and Veterans Affairs facilities. Immunization Series Date Given Administered By Site Reaction Lot Number CVX Code Drug It Support Manager Status Comments Source INFLUENZA, UNSPECIFIED FORMULATION 2023 88 complet ed Completed Series, HISTORICA L INFORMATI ON - [facility] INFLUENZA, UNSPECIFIED FORMULATION 2022 88 complet ed HISTORICA L INFORMATI ON - SOURCE UNSPECIFI ED, [facility] ZOSTER, UNSPECIFIED FORMULATION 2022 188 complet ed HISTORICA L INFORMATI ON - FROM OTHER PROVIDER, [facility] ZOSTER, UNSPECIFIED FORMULATION 2022 188 complet ed HISTORICA L INFORMATI ON - FROM OTHER PROVIDER, [facility] INFLUENZA, UNSPECIFIED FORMULATION 2021 88 complet ed [facility] COVID-19, mRNA, LNP-S, PF, 30 mcg/0.3 mL dose 2020 SWATHI Rojas, [employer] [place] (PFR) Not Given COVID-19, mRNA, LNP-S, PF, 30 mcg/0.3 mL dose DoD COVID-19 (PFIZER), MRNA, LNP-S, PF, 30 MCG/0.3 ML DOSE 3 2020 208 complet ed HISTORICA L INFORMATI ON - FROM OTHER REGISTRY, Lot#: [id number] Mfr: [employer] [facility] influenza, high-dose, quadrivalent 2020 BOGDASARIAN, () Not Given influenza , high-dose , quadrival ent DoD TDAP 2020 115 complet ed [facility] [place] COVID-19 (PFIZER), MRNA, LNP-S, PF, 30 MCG/0.3 ML DOSE 2 2020 208 complet ed [facility] ZOSTER RECOMBINANT 2 2018 187 complet ed provided by patient. cindye janna [facility] INFLUENZA, SEASONAL, INJECTABLE 2017 141 complet ed [facility] FLU,3 YRS (HISTORICAL) 2015 88 complet ed Site: Right Deltoid [place] PNEUMOCOCCAL CONJUGATE PCV 13 2015 133 complet ed [place] FLU,3 YRS (HISTORICAL) 2014 88 complet ed Site: Left Deltoid [place] FLU,3 YRS (HISTORICAL) 2013 88 complet ed Site: Right Deltoid [place] PNEUMOCOCCAL POLYSACCHARID E PPV23 2013 33 complet ed [place] ZOSTER (SHINGLES) (HISTORICAL) 2013 121 complet ed Proximal Left Arm [place] FLU,3 YRS (HISTORICAL) 2013 88 complet ed [place] FLU,3 YRS (HISTORICAL) 2011 88 complet ed Site: Left Deltoid [place] FLU,3 YRS (HISTORICAL) 2010 88 complet ed Site: Left Deltoid [place] DTAP, UNSPECIFIED FORMULATION 2010 107 complet ed Site: Right Deltoid [place] FLU,3 YRS (HISTORICAL) 2009 88 complet ed Site: Left Deltoid [place] FLU,3 YRS (HISTORICAL) 2009 88 complet ed Site: Left Deltoid [place] PNEUMOCOCCAL, UNSPECIFIED FORMULATION 2008 109 complet ed [place] FLU,3 YRS (HISTORICAL) 2007 88 complet ed Site: Left Deltoid [place] FLU,3 YRS (HISTORICAL) 2006 88 complet ed [place] influenza virus vaccine, split virus (incl. purified surface antigen)-reti red CODE 1 2004 Unknown, Provider [id number] Sanofi Pasteur ([facility]) complet ed influenza virus vaccine, split virus (incl. purified surface antigen)- retired CODE DoD anthrax vaccine 6 2003 Unknown, Provider [id number] [employer] [place] ([facility]) complet ed anthrax vaccine DoD anthrax vaccine 5 2003 Unknown, Provider [id number] 24 [employer] [place] ([facility]) complet ed anthrax vaccine DoD typhoid Vi capsular polysaccharid e vaccine 1 2002 Unknown, Provider [id number] Sanofi Pasteur ([facility]) complet ed typhoid Vi capsular polysacch aride vaccine DoD influenza virus vaccine, whole virus 1 2002 Unknown, Provider [id number] [employer] ([facility]) complet ed influenza virus vaccine, whole virus DoD tuberculin skin test; purified protein derivative solution, intradermal 1 2002 Unknown, Provider [id number] Sanofi Pasteur ([facility]) complet ed tuberculi n skin test; purified protein derivativ e solution, intraderm al DoD vaccinia (smallpox) vaccine 2 2002 Unknown, Provider [id number] [employer] ([facility]) complet ed vaccinia (smallpox ) vaccine DoD anthrax vaccine 4 2001 Unknown, Provider [id number] [facility] ([facility]) complet ed anthrax vaccine DoD influenza virus vaccine, whole virus 1 2001 Unknown, Provider [id number] Sanofi Pasteur ([facility]) complet ed influenza virus vaccine, whole virus DoD tuberculin skin test; purified protein derivative solution, intradermal 1 2001 Unknown, Provider [id number] Sanofi Pasteur ([facility]) complet ed tuberculi n skin test; purified protein derivativ e solution, intraderm al DoD influenza virus vaccine, whole virus 1 2000 Unknown, Provider [id number] 16 Sanofi Pasteur ([facility]) complet ed influenza virus vaccine, whole virus DoD tuberculin skin test; purified protein derivative solution, intradermal 1 2000 Unknown, Provider [id number] Sanofi Pasteur ([facility]) complet ed tuberculi n skin test; purified protein derivativ e solution, intraderm al DoD typhoid vaccine, parenteral, other than acetone-kille d, dried 1 2000 Unknown, Provider [id number] Sanofi Pasteur ([facility]) complet ed typhoid vaccine, parentera l, other than acetone-k illed, dried [facility] influenza virus vaccine, whole virus 1 2000 Unknown, Provider [id number] [employer] ([facility]) complet ed influenza virus vaccine, whole virus DoD tuberculin skin test; purified protein derivative solution, intradermal 1 1999 Unknown, Provider [id number]) complet ed tuberculi n skin test; purified protein derivativ e solution, intraderm al DoD anthrax vaccine 3 1999 Unknown, Provider [id number] [employer] [place] ([facility]) complet ed anthrax vaccine DoD anthrax vaccine 2 1999 Unknown, Provider [id number] [employer] [place] ([facility]) complet ed anthrax vaccine DoD anthrax vaccine 1 1999 Unknown, Provider [id number] 24 [facility]) complet ed anthrax vaccine DoD hepatitis A vaccine, adult dosage 2 1999 Unknown, Provider [id number] Merck (MSD) complet ed hepatitis A vaccine, adult dosage DoD measles, mumps and rubella virus vaccine 1 1999 Unknown, Provider [id number] Ales[employer] (CON) complet ed measles, mumps and rubella virus vaccine DoD meningococcal polysaccharid e vaccine (MPSV4) 1 1999 Unknown, Provider [id number] Sanofi Pasteur ([facility]) complet ed meningoco ccal polysacch aride vaccine (MPSV4) DoD tuberculin skin test; purified protein derivative solution, intradermal 1 1999 Unknown, Provider [id number] [employer] (CON) complet ed tuberculi n skin test; purified protein derivativ e solution, intraderm al DoD hepatitis A vaccine, adult dosage 1 1998 Unknown, Provider [id number] Merck (MSD) complet ed hepatitis A vaccine, adult dosage DoD influenza virus vaccine, whole virus 1 1998 Unknown, Provider [id number] [place] ([facility]) complet ed influenza virus vaccine, whole virus DoD tetanus and diphtheria toxoids, adsorbed, preservative free, for adult use (2 Lf of tetanus toxoid and 2 Lf of diphtheria toxoid) 1 1998 Unknown, Provider [id number] [employer] ([facility]) complet ed tetanus and diphtheri a toxoids, adsorbed, preservat jemma free, for adult use (2 Lf of tetanus toxoid and 2 Lf of diphtheri a toxoid) DoD yellow fever vaccine 1 1998 Unknown, Provider [id number] Sanofi Pasteur ([facility]) complet ed yellow fever vaccine DoD influenza virus vaccine, whole virus 1 1997 Unknown, Provider [id number] Sanofi Pasteur ([facility]) complet ed influenza virus vaccine, whole virus DoD typhoid vaccine, parenteral, acetone-kille d, dried ([place]. ) 2 1997 Unknown, Provider 53 () complet ed typhoid vaccine, parentera l, acetone-k illed, dried ([place]. ) [facility] influenza virus vaccine, whole virus 1 1996 Unknown, Provider 16 () complet ed influenza virus vaccine, whole virus [facility] tetanus and diphtheria toxoids, adsorbed, preservative free, for adult use (2 Lf of tetanus toxoid and 2 Lf of diphtheria toxoid) 1 1988 Unknown, Provider 09 () complet ed tetanus and diphtheri a toxoids, adsorbed, preservat jemma free, for adult use (2 Lf of tetanus toxoid and 2 Lf of diphtheri a toxoid) DoD yellow fever vaccine 1 1988 Unknown, Provider 37 () complet ed yellow fever vaccine DoD cholera vaccine, unspecified formulation 1 1979 Unknown, Provider 26 () complet ed cholera vaccine, unspecifi ed formulati on DoD trivalent poliovirus vaccine, live, oral 1 1978 Unknown, Provider 02 () complet ed trivalent polioviru s vaccine, live, oral [facility] Results Combined list of recent chemistry, hematology and other laboratory results from Department of Defense and Veterans Affairs, ranging from 15 months to all on record, depending upon the facility. Order Name Results Value Reference Range Date Interpretation Specimen Comments Source PSA PROSTATE SPECIFIC AG [MASS/VOLUM E] IN SERUM OR PLASMA 23.07 ng/mL 0.00 - 4.00 08/08 H Specimen Type: SERUM No comment entered. Ordering Provider: JANELL HARRIS Report Released Date/Time: Aug 07, 2023 01:31 PM Reporting Lab: [facility] [employer] [address] Performing Lab: [facility] [employer] [address] [facility] LIPID PANEL, NON FASTING CHOLESTEROL [MASS/VOLUM E] IN SERUM OR PLASMA 146 mg/dL 08/08 Specimen Type: SERUM No comment entered. Ordering Provider: JANELL HARRIS Report Released Date/Time: Aug 07, 2023 01:31 PM Reporting Lab: [facility] [employer] [address] Performing Lab: [facility] [address] [facility] [address] [place] LIPID PANEL, NON FASTING TRIGLYCERID E [MASS/VOLUM E] IN SERUM OR PLASMA 92 mg/dL 0 - 150 08/08 Specimen Type: SERUM No comment entered. Ordering Provider: JANELL HARRIS Report Released Date/Time: Aug 07, 2023 01:31 PM Reporting Lab: [facility] [address] [facility] [address] Performing Lab: [address] [address] [place] LIPID PANEL, NON FASTING CHOLESTEROL IN LDL [MASS/VOLUM E] IN SERUM OR PLASMA BY CALCULATION 96 mg/dL 0 - 129 08/08 Specimen Type: SERUM No comment entered. Ordering Provider: JANELL HARRIS Report Released Date/Time: Aug 07, 2023 01:31 PM Reporting Lab: [address] [address] Performing Lab: [address] [address] [place] LIPID PANEL, NON FASTING CHOLESTEROL .TOTAL/CHOL ESTEROL IN HDL [MASS RATIO] IN SERUM OR PLASMA 4.6 08/08 Specimen Type: SERUM No comment entered. Ordering Provider: JANELL HARRIS Report Released Date/Time: Aug 07, 2023 01:31 PM Reporting Lab: [address] [address] Performing Lab: [address] [address] [place] LIPID PANEL, NON FASTING CHOLESTEROL IN HDL [MASS/VOLUM E] IN SERUM OR PLASMA 32 mg/dL 40 - 60 08/08 L Specimen Type: SERUM No comment entered. Ordering Provider: JANELL HARRIS Report Released Date/Time: Aug 07, 2023 01:31 PM Reporting Lab: [address] [address] Performing Lab: [address] [place] [address] [place] TSH THYROTROPIN [UNITS/VOLU ME] IN SERUM OR PLASMA 0.73 u[IU]/ mL 0.35 - 5.00 08/08 Specimen Type: SERUM No comment entered. Ordering Provider: JANELL HARRIS Report Released Date/Time: Aug 07, 2023 01:31 PM Reporting Lab: [address] [address] Performing Lab: [address] [address] [place] HEMOGLOBI N A1C PANEL HEMOGLOBIN A1C/HEMOGLO BIN.TOTAL IN BLOOD BY HPLC 5.5 4.0 - 5.6 08/08 Specimen Type: BLOOD Comment: Values obtained from A1C measurement s can vary. For atypical A1C assays, a reported value of 7.0 could actually be between 6.72 and 7.28 if measured by a reference method. A reported value of 9.0 could actually be between 8.73 and 9.27. Ref: http://www. ngsp.org/[place] Pdata.asp Ordering Provider: JANELL HARRIS Report Released Date/Time: Aug 07, 2023 01:31 PM Reporting Lab: [address] [address] Performing Lab: [address] [address] [place] LIVER FUNCTION PROTEIN [MASS/VOLUM E] IN SERUM OR PLASMA 6.2 g/dL 6.0 - 8.3 08/08 Specimen Type: SERUM No comment entered. Ordering Provider: JANELL HARRIS Report Released Date/Time: Aug 07, 2023 01:31 PM Reporting Lab: [address] [address] Performing Lab: [address] [address] [place] LIVER FUNCTION ALBUMIN [MASS/VOLUM E] IN SERUM OR PLASMA 3.1 g/dL 3.5 - 5.0 08/08 L Specimen Type: SERUM No comment entered. Ordering Provider: JANELL HARRIS HARVEY Angeli Report Released Date/Time: Aug 07, 2023 01:31 PM Reporting Lab: [facility] [address] [address] Performing Lab: [facility] [address] [address] [place] LIVER FUNCTION ALKALINE PHOSPHATASE [ENZYMATIC ACTIVITY/VO LUME] IN SERUM OR PLASMA 72 U/L 40 - 150 08/08 Specimen Type: SERUM No comment entered. Ordering Provider: JANELL HARRIS HARVEY J Report Released Date/Time: Aug 07, 2023 01:31 PM Reporting [facility] [address] [address] Performing Lab: [facility] [address] [address] [place] LIVER FUNCTION ASPARTATE AMINOTRANSF ERASE [ENZYMATIC ACTIVITY/VO LUME] IN SERUM OR PLASMA 9 U/L 5 - 34 08/08 Specimen Type: SERUM No comment entered. Ordering Provider: JANELL HARRIS HARVEY Angeli Report Released Date/Time: Aug 07, 2023 01:31 PM Reporting Lab: [facility] [address] [address] Performing Lab: [facility] [address] [address] [place] LIVER FUNCTION ALANINE AMINOTRANSF ERASE [ENZYMATIC ACTIVITY/VO LUME] IN SERUM OR PLASMA 11 U/L 08/08 Specimen Type: SERUM No comment entered. Ordering Provider: JANELL HARRIS HARVEY Angeli Report Released Date/Time: Aug 07, 2023 01:31 PM Reporting Lab: [facility] [address] [address] Performing Lab[facility] [address] [address] [place] LIVER FUNCTION BILIRUBIN.T OTAL [MASS/VOLUM E] IN SERUM OR PLASMA 0.2 mg/dL 0.2 - 1.2 08/08 Specimen Type: SERUM No comment entered. Ordering Provider: JANELL HARRIS HARVEY J Report Released Date/Time: Aug 07, 2023 01:31 PM Reporting Lab: [address] [address] Performing Lab: [address] [address] [place] BASIC METABOLIC PANEL (non-fast ing) UREA NITROGEN [MASS/VOLUM E] IN SERUM OR PLASMA 16 mg/dL 7 - 25 08/08 Specimen Type: SERUM No comment entered. Ordering Provider: JANELL HARRIS HARVEY J Report Released Date/Time: Aug 07, 2023 01:31 PM Reporting Lab: [address] [address] Performing Lab: [address] [address] [place] BASIC METABOLIC PANEL (non-fast ing) GLUCOSE [MASS/VOLUM E] IN SERUM OR PLASMA 150 mg/dL 65 - 100 08/08 H Specimen Type: SERUM No comment entered. Ordering Provider: JANELL HARRIS HARVEY J Report Released Date/Time: Aug 07, 2023 01:31 PM Reporting Lab: [address] [address] Performing Lab: [address] [address] [place] BASIC METABOLIC PANEL (non-fast ing) SODIUM [MOLES/VOLU ME] IN SERUM OR PLASMA 137 mmol/L 135 - 145 08/08 Specimen Type: SERUM No comment entered. Ordering Provider: JANELL HARRIS HARVEY J Report Released Date/Time: Aug 07, 2023 01:31 PM Reporting Lab: [address] [address] Performing Lab: [address] [address] [place] BASIC METABOLIC PANEL (non-fast ing) POTASSIUM [MOLES/VOLU ME] IN SERUM OR PLASMA 4.1 mmol/L 3.5 - 5.0 08/08 Specimen Type: SERUM No comment entered. Ordering Provider: JANELL HARRIS HARVEY J Report Released Date/Time: Aug 07, 2023 01:31 PM Reporting Lab: [address] [address] Performing Lab: [address] [address] [place] BASIC METABOLIC PANEL (non-fast ing) CHLORIDE [MOLES/VOLU ME] IN SERUM OR PLASMA 103 mmol/L 100 - 110 08/08 Specimen Type: SERUM No comment entered. Ordering Provider: JANELL HARRIS HARVEY J Report Released Date/Time: Aug 07, 2023 01:31 PM Reporting Lab: [address] [address] Performing Lab: [address] [address] [place] BASIC METABOLIC PANEL (non-fast ing) CARBON DIOXIDE, TOTAL [MOLES/VOLU ME] IN SERUM OR PLASMA 26 meq/L 20 - 30 08/08 Specimen Type: SERUM No comment entered. Ordering Provider: JANELL HARRIS HARVEY J Report Released Date/Time: Aug 07, 2023 01:31 PM Reporting Lab: [address] [address] Performing Lab: [address] [address] [place] BASIC METABOLIC PANEL (non-fast ing) CREATININE [MASS/VOLUM E] IN SERUM OR PLASMA 0.76 mg/dL 0.50 - 1.40 08/08 Specimen Type: SERUM No comment entered. Ordering Provider: JANELL HARRIS HARVEY J Report Released Date/Time: Aug 07, 2023 01:31 PM Reporting Lab: [address] [address] Performing Lab: [address] [address] [place] BASIC METABOLIC PANEL (non-fast ing) GLOMERULAR FILTRATION RATE/1.73 SQ M.PREDICTED [VOLUME RATE/AREA] IN SERUM, PLASMA OR BLOOD BY CREATININE- BASED FORMULA (CKD-EPI 2020) >90mL/ min 60 08/08 Specimen Type: SERUM No comment entered. Ordering Provider: JANELL HARRIS Report Released Date/Time: Aug 07, 2023 01:31 PM Reporting Lab: [address] [address] Performing Lab: [address] [address] [place] VITAMIN D (25-OH) 25-HYDROXYV ITAMIN D3 [MASS/VOLUM E] IN SERUM OR PLASMA 33 ng/mL 20 - 50 08/08 Specimen Type: SERUM No comment entered. Ordering Provider: JANELL HARRIS Report Released Date/Time: Aug 07, 2023 01:31 PM Reporting Lab: [address] [address] Performing Lab: [address] [address] [place] CBC AND DIFF (AUTO) LEUKOCYTES [#/VOLUME] IN BLOOD BY AUTOMATED COUNT 10.65 10*3/u L 4.50 - 11.00 08/08 Specimen Type: BLOOD No comment entered. Ordering Provider: JANELL HARRIS Report Released Date/Time: Aug 07, 2023 01:31 PM Reporting Lab: [address] [address] Performing Lab: [address] [address] [place] CBC AND DIFF (AUTO) ERYTHROCYTE S [#/VOLUME] IN BLOOD BY AUTOMATED COUNT 4.61 10*6/u L 4.23 - 5.66 08/08 Specimen Type: BLOOD No comment entered. Ordering Provider: JANELL HARRIS Report Released Date/Time: Aug 07, 2023 01:31 PM Reporting Lab: [address] [address] Performing Lab: [address] [address] [place] CBC AND DIFF (AUTO) HEMOGLOBIN [MASS/VOLUM E] IN BLOOD 12.1 g/dL 12.8 - 17 08/08 L Specimen Type: BLOOD No comment entered. Ordering Provider: JANELL HARRIS Report Released Date/Time: Aug 07, 2023 01:31 PM Reporting [facility] [address] [facility] [address] Performing Lab: [facility] [address] [address] [place] CBC AND DIFF (AUTO) HEMATOCRIT [VOLUME FRACTION] OF BLOOD BY AUTOMATED COUNT 38.9 39.2 - 50.4 08/08 L Specimen Type: BLOOD No comment entered. Ordering Provider: JANELL HARRIS Report Released Date/Time: Aug 07, 2023 01:31 PM Reporting [facility] [address] [address] Performing Lab: [facility] [address] [address] [place] CBC AND DIFF (AUTO) MCV [ENTITIC VOLUME] BY AUTOMATED COUNT 84.4 fL 82 - 99 08/08 Specimen Type: BLOOD No comment entered. Ordering Provider: JANELL HARRIS Report Released Date/Time: Aug 07, 2023 01:31 PM Reporting [facility]: [facility] [address] [address] Performing Lab: [facility] [address] [address] [place] CBC AND DIFF (AUTO) MCHC [MASS/VOLUM E] BY AUTOMATED COUNT 31.1 g/dL 30.8 - 35.1 08/08 Specimen Type: BLOOD No comment entered. Ordering Provider: JANELL HARRIS Report Released Date/Time: Aug 07, 2023 01:31 PM Reporting Lab: [facility] [address] [address] [facility]: [facility] [address] [address] [place] CBC AND DIFF (AUTO) PLATELETS [#/VOLUME] IN BLOOD BY AUTOMATED COUNT 379 10*3/u L 140 - 360 08/08 H Specimen Type: BLOOD No comment entered. Ordering Provider: JANELL HARIRS Report Released Date/Time: Aug 07, 2023 01:31 PM Reporting [facility]: [facility] [address] [address] Performing Lab: [facility] [address] [address] [place] CBC AND DIFF (AUTO) ERYTHROCYTE DISTRIBUTIO N WIDTH [RATIO] BY AUTOMATED COUNT 16.4 12.0 - 16.0 08/08 H Specimen Type: BLOOD No comment entered. Ordering Provider: JANELL HARRIS Report Released Date/Time: Aug 07, 2023 01:31 PM Reporting Lab: [address] [address] Performing Lab: [address] [address] [place] CBC AND DIFF (AUTO) MONOCYTES [#/VOLUME] IN BLOOD BY AUTOMATED COUNT 0.41 10*3/u L 0.30 - 1.10 08/08 Specimen Type: BLOOD No comment entered. Ordering Provider: JANELL HARRIS Report Released Date/Time: Aug 07, 2023 01:31 PM Reporting Lab: [address] [address] Performing [facility]: [facility] [address] [address] [place] CBC AND DIFF (AUTO) MCH [ENTITIC MASS] BY AUTOMATED COUNT 26.2 pg 26.2 - 32.6 08/08 Specimen Type: BLOOD No comment entered. Ordering Provider: JANELL HARRIS Report Released Date/Time: Aug 07, 2023 01:31 PM Reporting [facility]: [facility] [address] [address] Performing Lab: [address] [address] [place] CBC AND DIFF (AUTO) NEUTROPHILS /100 LEUKOCYTES IN BLOOD BY AUTOMATED COUNT 74.5 43.7 - 75.8 08/08 Specimen Type: BLOOD No comment entered. Ordering Provider: JANELL HARRIS Report Released Date/Time: Aug 07, 2023 01:31 PM Reporting Lab: [facility] [address] [address] Performing Lab: [place] [facility] [address] [place] CBC AND DIFF (AUTO) LYMPHOCYTES /100 LEUKOCYTES IN BLOOD BY AUTOMATED COUNT 19.8 14.0 - 42.3 08/08 Specimen Type: BLOOD No comment entered. Ordering Provider: JANELL HARRIS Report Released Date/Time: Aug 07, 2023 01:31 PM Reporting Lab: [facility] [address] [address] Performing Lab: [facility] [address] [address] [place] CBC AND DIFF (AUTO) MONOCYTES/1 00 LEUKOCYTES IN BLOOD BY AUTOMATED COUNT 3.8 5.1 - 13.7 08/08 L Specimen Type: BLOOD No comment entered. Ordering Provider: JANELL HARRIS Report Released Date/Time: Aug 07, 2023 01:31 PM Reporting Lab: [facility] [address] [address] Performing Lab: [facility] [address] [address] [place] CBC AND DIFF (AUTO) EOSINOPHILS /100 LEUKOCYTES IN BLOOD BY AUTOMATED COUNT 1.2 0.4 - 6.8 08/08 Specimen Type: BLOOD No comment entered. Ordering Provider: JANELL HARRIS Report Released Date/Time: Aug 07, 2023 01:31 PM Reporting Lab: [facility] [address] [address] Performing Lab: [facility] [address] [address] [place] CBC AND DIFF (AUTO) BASOPHILS/1 00 LEUKOCYTES IN BLOOD BY AUTOMATED COUNT 0.4 0.1 - 2.0 08/08 Specimen Type: BLOOD No comment entered. Ordering Provider: JANELL HARRIS Report Released Date/Time: Aug 07, 2023 01:31 PM Reporting [facility]: [facility] [address] [address] Performing Lab: [facility] [address] [address] [place] CBC AND DIFF (AUTO) NEUTROPHILS [#/VOLUME] IN BLOOD BY AUTOMATED COUNT 7.93 10*3/u L 2.20 - 7.60 08/08 H Specimen Type: BLOOD No comment entered. Ordering Provider: JANELL HARRIS Report Released Date/Time: Aug 07, 2023 01:31 PM Reporting Lab: [address] [address] Performing Lab: [address] [address] [place] CBC AND DIFF (AUTO) LYMPHOCYTES [#/VOLUME] IN BLOOD BY AUTOMATED COUNT 2.11 10*3/u L 1.00 - 3.20 08/08 Specimen Type: BLOOD No comment entered. Ordering Provider: JANELL HARRIS Report Released Date/Time: Aug 07, 2023 01:31 PM Reporting Lab: [address] [address] Performing Lab: [facility] [address] [address] [place] CBC AND DIFF (AUTO) EOSINOPHILS [#/VOLUME] IN BLOOD BY AUTOMATED COUNT 0.13 10*3/u L 0.03 - 0.44 08/08 Specimen Type: BLOOD No comment entered. Ordering Provider: JANELL HARRIS Report Released Date/Time: Aug 07, 2023 01:31 PM Reporting Lab: [address] [address] Performing Lab: [facility] [address] [address] [place] CBC AND DIFF (AUTO) BASOPHILS [#/VOLUME] IN BLOOD BY AUTOMATED COUNT 0.04 10*3/u L 0.01 - 0.13 08/08 Specimen Type: BLOOD No comment entered. Ordering Provider: JANELL HARRIS Report Released Date/Time: Aug 07, 2023 01:31 PM Reporting Lab: [facility] [address] [address] Performing Lab: [place] [facility] [address] [place] CBC AND DIFF (AUTO) IMMATURE GRANULOCYTE S/100 LEUKOCYTES IN BLOOD BY AUTOMATED COUNT 0.3 0.0 - 0.7 08/08 Specimen Type: BLOOD No comment entered. Ordering Provider: JANELL HARRIS Report Released Date/Time: Aug 07, 2023 01:31 PM Reporting [facility]: [facility] [address] [address] Performing Lab: [facility] [place] [address] [address] [place] CBC AND DIFF (AUTO) IMMATURE GRANULOCYTE S [#/VOLUME] IN BLOOD 0.03 10*3/u L 0.00 - 0.06 08/08 Specimen Type: BLOOD No comment entered. Ordering Provider: JANELL HARRIS Report Released Date/Time: Aug 07, 2023 01:31 PM Reporting Lab: [facility] [address] Performing Lab: [facility] [address] [place] PSA PROSTATE SPECIFIC AG [MASS/VOLUM E] IN SERUM OR PLASMA 16.37 ng/mL 0.00 - 4.00 02/13 H Specimen Type: SERUM No comment entered. Ordering Provider: MARCELINA NUÑEZ Report Released Date/Time: Feb 13, 2023 10:39 AM Reporting Lab: [facility] [address] [address] Performing Lab: [facility] [address] [address] [place] LIPID PANEL FASTING CHOLESTEROL [MASS/VOLUM E] IN SERUM OR PLASMA 171 mg/dL 01/23 Specimen Type: SERUM No comment entered. Ordering Provider: ERNST JACOB Report Released Date/Time: Dec 19, 2022 04:23 PM Reporting Lab: [address] [address] Performing Lab: [facility] [address] [address] [place] LIPID PANEL FASTING TRIGLYCERID E [MASS/VOLUM E] IN SERUM OR PLASMA 114 mg/dL 0 - 150 01/23 Specimen Type: SERUM No comment entered. Ordering Provider: ERNST JACOB Report Released Date/Time: Dec 19, 2022 04:23 PM Reporting Lab: [address] [address] Performing Lab: [address] [address] [place] LIPID PANEL FASTING CHOLESTEROL IN LDL [MASS/VOLUM E] IN SERUM OR PLASMA BY CALCULATION 110 mg/dL 0 - 129 01/23 Specimen Type: SERUM No comment entered. Ordering Provider: ERNST JACOB Report Released Date/Time: Dec 19, 2022 04:23 PM Reporting Lab: [address] [address] Performing Lab: [address] [address] [place] LIPID PANEL FASTING CHOLESTEROL .TOTAL/CHOL ESTEROL IN HDL [MASS RATIO] IN SERUM OR PLASMA 4.5 01/23 Specimen Type: SERUM No comment entered. Ordering Provider: ERNST JACOB Report Released Date/Time: Dec 19, 2022 04:23 PM Reporting Lab: [address] [address] Performing Lab: [facility] [place] [facility] [address] [facility] [address] [employer] LIPID PANEL FASTING CHOLESTEROL IN HDL [MASS/VOLUM E] IN SERUM OR PLASMA 38 mg/dL 40 - 60 01/23 L Specimen Type: SERUM No comment entered. Ordering Provider: ERNST JACOB Report Released Date/Time: Dec 19, 2022 04:23 PM Reporting Lab: [facility] [place] [facility] [address] [facility] [address] Performing Lab: [facility] [place] [facility] [address] [facility] [address] [facility] Vital Signs Combined list of inpatient and outpatient Vital Signs from Department of Defense and Veterans Affairs, ranging from 12 months to all on record, depending upon the facility. Vital Sign Value Date Comments Source SYSTOLIC BLOOD PRESSURE 151 03/18/20 24 13:08:32 [facility] [place] [facility] DIASTOLIC BLOOD PRESSURE 76 024 13:08:32 [facility] [place] PULSE OXIMETRY 97 03/18/2024 13:08:32 [facility] WEIGHT 220 03/18/2024 13:08:32 [facility] BMI 36 kg/m2 03/18/2024 13:08:32 [facility] PAIN 0 03/18/2024 13:08:32 [facility] TEMPERATURE 97.6 03/18/2024 13:08:32 [facility] PULSE 66 03/18/2024 13:08:32 [facility] RESPIRATION 16 03/18/2024 13:08:32 [facility] [place] SYSTOLIC BLOOD PRESSURE 145 02/13/20 24 08:45:16 [facility] [place] [facility] DIASTOLIC BLOOD PRESSURE 73 024 08:45:16 [facility] [place] PULSE OXIMETRY 96 02/13/2024 08:45:16 [facility] WEIGHT 220.5 02/13/2024 08:45:16 [facility] BMI 36 kg/m2 02/13/2024 08:45:16 [facility] PAIN 0 02/13/2024 08:45:16 [facility] HEIGHT 66 02/13/2024 08:45:16 [facility] TEMPERATURE 99.2 02/13/2024 08:45:16 [facility] PULSE 83 02/13/2024 08:45:16 [facility] RESPIRATION 16 02/13/2024 08:45:16 [facility] SYSTOLIC BLOOD PRESSURE 125 08/13/19 09:26:37 [facility] DIASTOLIC BLOOD PRESSURE 66 024 09:26:37 [facility] PULSE OXIMETRY 97 08/13/2023 09:26:37 [facility] WEIGHT 190 08/13/2023 09:26:37 [facility] BMI 31 kg/m2 08/13/2023 09:26:37 [facility] PAIN 0 08/13/2023 09:26:37 [facility] HEIGHT 66 08/13/2023 09:26:37 [facility] TEMPERATURE 98 08/13/2023 09:26:37 [facility] PULSE 74 08/13/2023 09:26:37 [facility] RESPIRATION 18 08/13/2023 09:26:37 [facility] Encounters Combined list of: 1) Encounters from Department of Veterans Affairs facilities going backup to the last 18 months, not all [place] inpatient encounters are included; 2) Encounters from the Department of Defense facilities going backup to 280 months. Location Location Details Encounter Type Encounter Number Reason For Visit Attending Provider ADM Date DC Date Status Disposition Source [facility] OFFICE O/P EST HI 40-54 MIN [id number] Diagnos is: ICD-10- CM J31.0 Chronic rhiniti s NUÑEZ,ADR DANYELLE S 02/13 [facility] Outpatient Encounter [id number] Celi GARCÍA 02/13 [place] [facility] Encounter [id number] 02[facility]13 [facility] En[facility] [id number] 02/14 [facility] Encounter [id number] Diagnos is: ICD-10- CM Z02.89 Encount er for other adminis trative examina tions SUSANSUNNYABELINOBENITA OLSENMargie L 03/14 [facility] HEARING AID FITTING/CH ECKING [id number] Diagnos is: ICD-10- CM Z46.1 Encount er for fitting and adjustm ent of hearing aid BENITA COLLIER L 03/14 [facility] Out[facility] Encounter [id number] 05/02 [facility] Encounter [id number] 05/02 [facility] Encounter [id number] 05/22 [facility] Out[facility] Encounter [id number] Diagnos is: ICD-10- CM G47.30 Sleep apnea, unspeci fied ALONZO TAY 05/22 [facility] En[facility] [id number] 08/06 [facility] 40 MIN [id number] Diagnos is: ICD-10- CM J45.909 Unspeci fied asthma, uncompl icated HARRIS,VICT ORIA J 08/12 [place] [facility] Encounter [id number] ROXANA SHEPPARDECA 08/12 [facility] En[facility] [id number] 09/02 [facility] REPL ORAL CUSHION COMBO MASK [id number] Diagnos is: ICD-10- CM G47.30 Sleep apnea, unspeci fied ST AMKEIRA WOLFF E P 09/02 [facility] Encounter [id number] 10/08 [facility] Encounter [id number] 11/06 [facility] Encounter [id number] 11/07 [facility] Encounter [id number] 11/08 [facility] Encounter [id number] 11/25 [facility] FIT SPECTACLES MULTIFOCAL [id number] Diagnos is: ICD-10- CM H25.13 Age-rel ated nuclear catarac t, bilater al KAYLEE SIGALA E 11/29 [facility] FIT SPECTACLES MULTIFOCAL [id number] Diagnos is: ICD-10- CM Z46.0 Encount er for fit/adj st of spectac les and contact lenses KAYLEE SIGALA E 11/29 [facility] En[facility] [id number] 01/09 [facility] COLLJ & INTERPJ DATA EA 30 D [id number] Diagnos is: ICD-10- CM G47.30 Sleep apnea, unspeci ANGELES Samaniego A 01/10 [facility] Out[facility] Encounter [id number] 01/21 [facility] Outpatient Encounter [id number] 02/05 [facility] OFFICE O/P EST LOW 20 MIN [id number] Diagnos is: ICD-10- CM H90.3 Sensori neural hearing loss, bilater KARIN Jim RD D 02/12 [facility] UNLISTED SPEC DERM SVC/PX [id number] Diagnos is: ICD-10- CM Z13.89 Encount er for screeni ng for other disorde YANIV Dotson ICA A 02/27 [facility] [place] [facility] Outpatient Encounter [id number] Diagnos is: ICD-10- CM L82.1 Other seborrh eic keratos is BRYAN FITZGERALD 02/27 [facility] Encounter [id number] 02/27 [facility] Out[facility] Encounter [id number] 03/07 [facility] OFF/OP CNSLTJ NEW/EST MOD 40 [id number] Diagnos is: ICD-10- CM H90.3 Sensori neural hearing loss, MART Mccoy 03/18 [facility] UNLISTED SPEC DERM SVC/PX [id number] Diagnos is: ICD-10- CM Z13.89 Encount er for screeni ng for other disorde r YANIV COLE ICA A 03/18 [facility] [place] [facility] Outpatient Encounter [id number] Diagnos is: ICD-10- CM L82.1 Other seborrh eic keratos is BRYAN FITZGERALD 03/18 [facility] Encounter [id number] 03/18 [facility] En[facility] [id number] 03/20 [facility] En[facility] [id number] 03/21 [facility] EAR IMPRESSION [id number] Diagnos is: ICD-10- CM H90.3 Sensori neural hearing loss, SHIRLEY Beckman 03/27 [facility] [id number] 03/27 [facility] [id number] 04/01 [facility] [id number] 04/18 [facility] En[facility] [id number] 04/23 [facility] EAR MOLD/INSER T [id number] Diagnos is: ICD-10- CM Z46.1 Encount er for fitting and adjustm ent of hearing aid WU LAUGHLIN I 04/28 [facility] En[facility] [id number] 06/10 [facility] En[facility] [id number] 06/12 [facility] Procedures Combined list of: 1) Procedures from [facility] facilities going back up to thelast 18 months, not all VA non-surgical procedures are included; 2) All procedures from the Department of Defense facilities. Procedure Procedure Type Code Date Perfomer Comments Sourc e UNLISTED OPHTHALMOLOGICAL SERVICE OR PROCEDURE 09/04/2000 [facility] Social History Combined list of available smoking, tobacco, and other social history from Department of Defense and Veterans Affairs facilities. Social History Type Response Date Comment Source Tobacco smoking status [facility] VA-TOBACCO FORMER USER 02/13/2024 [facility] History of tobacco use [place] QU[place] 15 YRS OR MORE 02/13/2024 [facility] History of tobacco use [place] FOR[place] US[place] 02/13/2023 [facility] History of tobacco use [place] FOR[place] US[place] 01/02/2022 [facility] History of tobacco use [place] FOR[place] US[place] 12/14/2020 [facility] History of tobacco use [place] FOR[place] US[place] 12/17/2018 [facility] History of tobacco use QUIT TOBACCO USE > 7 YEARS AGO 10/09/2017 [facility] he used chewing tobacco, cigarettes, cigars, and pipes and quit more than 20 years ago [facility] History of tobacco use QUIT TOBACCO USE > 7 YEARS AGO 10/26/2016 reports quitting 30 years ago [facility] History of tobacco use QUIT TOBACCO USE > 7 YEARS AGO 09/09/2015 [facility] History of tobacco use QUIT TOBACCO USE > 7 YEARS AGO 05/18/2006 [facility] This section is an empty social history section. [facility] Plan of Care List of future care activities from Department of Veterans Affairs facilities. Additional future care activities may be listed in the Assessment and Plan section. Date/Time Care Activity Care Activity Detail Facili ty 08/20/2024 [facility] - MEDICINE AMBULATORY - MEDICI [facility] [facility] Advance Directives List of completed, amended, or rescinded Advance Directives on record at [facility] [employer] facilities. An actual copy of the Directive is not included. Date Advance Directive Provider Source 06/19/2007 ADVANCE DIRECTIVE [employer] [place]
--- OUTSIDE RECORDS SUMMARY | 2024-08-12 10:10 | XMS_ITS | Encounter Summary ---
Author Organization [employer] Address [address] [facility] [address] [place] [address] Care Team Providers Care Instructional Design Manager Name Role Phone Unavailable Primary Care Provider Unavailabl e Encounter Details Date Type Department Care Team (Latest Contact Info) Description 12/23/2020 Abstract [facility] CONVERSIONS Dental, Provider, DDS Social [...] Description 08/18/2024 9:30 AM EDT Office Visit [facility] [address] [place] [address] Ana Bearden LLD [address] [place] [address] 05/07/2025 9:30 AM EST Office Visit [facility] [address] [place] [address] Rosalee Henry documented as of this encounter Visit Diagnoses Not on filedocumented in this encounter
== END 2024-08-12 10:02 | disposition home or self-care (01) ==
LOC: HO.HPS 09:18
PROVIDERS: PCP Internal Medicine; Visit Provider Internal Medicine
DX: J45.909 Unspecified asthma, uncomplicated (principal); G47.33 Obstructive sleep apnea (adult) (pediatric); R05.9 Cough, unspecified; J30.9 Allergic rhinitis, unspecified
CPT/HCPCS: 99213

== ENCOUNTER → 2024-08-12 09:18 | Outpatient (BNVA) | payer MEDICARE, OTHER, SELFPAY | PROVIDERS: PCP Internal Medicine; Visit Provider Internal Medicine | DX: J45.909 Unspecified asthma, uncomplicated (principal); G47.33 Obstructive sleep apnea (adult) (pediatric); G30.9 Alzheimer's disease, unspecified; F02.80 Dementia in other diseases classified elsewhere, unspecified severity, without behavioral disturbance, psychotic disturbance, mood disturbance, and anxiety; Z79.899 Other long term (current) drug therapy | CPT/HCPCS: 99212 ==

== ENCOUNTER 2025-02-12 09:16 | Outpatient (AMB) | payer MEDICARE, OTHER, SELFPAY ==
--- NOTE | 2025-02-12 09:23 | A.OFFVIS_ITS ---
Vital Signs 02/12/25 09:30 Height 5 ft 6 in Weight 219 lb 5.759 oz BMI 35.4 BP 120/60 Blood Pressure Location Lt brachial Position Sitting Pulse 72 Pulse Source Pulse Oximeter Pulse Oximetry (%) 95 Oxygen Delivery Method Room Air Intake Visit Reasons: Cough Intake Note: pt is here for follow up and state his breathing is good. Passenger Brakeman Required: No Agricultural Education Professor: Agricultural Education Professor offered & declined Allergies No Known Allergies Allergy (Verified 02/12/25 09:39) Medication List - Last Reconciled 02/12/25 by Yusef Bourne MD albuterol sulfate 90 mcg/actuation 2 puffs inhalation Q4-6H PRN 30 days calcium carbonate 600 mg PO BID cetirizine (Zyrtec) 10 mg PO DAILY fluticasone propion-salmeterol 115-21 mcg/actuation 2 puffs inhalation BID 90 days inhalat.spacing dev,med. mask (Procare Spacer With Child Mask) As directed, size to fit patient memantine 28 mg PO DAILY memantine 28 mg PO DAILY peak flow meter As directed rivastigmine 9.5 mg transdermal DAILY sarilumab (Kevzara) 200 mg subcut Q2W Do you need a note to return to daycare/school/sports/work: No HPI HPI Cough: Details: Luis is 79 years old retired , comes routine follow-up after 6 months, he is being treated for cough variant asthma/COPD. He has mild dementia but stays very alert and pleasant. His manages administration of his medications. The fluticasone-salmeterol 115-21 has been cut down to 2 puffs only once a day, because he has had no more cough. Luckily he has had no respiratory infection. He also uses CPAP very regularly every night and sleeps well there is no issue with the CPAP mask CPAP machine. For his sleep apnea he follows with [facility]. [facility] Medical History Allergic rhinitis Cough Surgical History H/O colonoscopy H/O right hemicolectomy Social History Alcohol intake: former Patient Tobacco Use Status: Former Tobacco user Tobacco use type: Cigarette Review of Systems Const All systems reviewed & are unremarkable except as noted in HPI and below Eyes Reports no additional complaints ENT Reports nasal congestion and Reports nasal discharge (Intermittent) Card Reports no additional complaints Resp Reports cough (Chronic) GI Reports other (History of colon cancer, resected) Reports no additional complaints Musc Reports no additional complaints Skin/Breast Reports system reviewed and no additional complaints, except as documented Neuro Reports memory loss (Mild dementia) Psych Reports no additional complaints and Reports memory loss (Mild dementia) Endo Reports no additional complaints Petey/Lymph Reports no additional complaints Aller/Immun Reports no additional complaints Physical Exam Vital Signs: Last Vital Signs Pulse 72 02/12/25 09:30 BP 120/60 02/12/25 09:30 Pulse Ox 95 02/12/25 09:30 Oxygen Delivery Method Room Air 02/12/25 09:30 BMI result Body Mass Index 35.4 Const General: healthy appearing, comfortable, no acute distress, alert and awake Orientation/consciousness: patient oriented x3 HEENT Head: Yes normal to inspection General nose exam: No nasal polyps present, mucous membranes and turbinates abnormal ( nasal turbinates are moderately hypertrophied without sig . obstruction), No nasal discharge present and Abnormal mucous membranes and turbinates present Face and sinus: Yes sinuses nontender Mouth: oropharynx abnormals (Oropharynx is somewhat crowded, Mallampati class 3) Throat: Yes posterior oropharynx normal Eyes General: appearance normal, both eyes and all related structures Neck Neck: Yes normal visual inspection, Yes no lymphadenopathy, Yes trachea midline and Yes no JVD Thyroid: Thyroid normal Chest Chest palpation & inspection: normal inspection of the chest, normal palpation of entire chest wall and no tenderness Resp Other: Percussion note resonant, breath sounds are equal on both sides, no wheezes rhonchi or crepitations are heard. Cardio Palpation: normal PMI Rate: regular rate Rhythm: regular rhythm Heart sounds: Gallop heart sound present and Murmur heart sound present Peripheral pulses: Peripheral pulses 2+ throughout GI Palpation (GI): Soft to palpation, Tenderness to palpation present (GI), No hepatosplenomegaly present and Palpable mass present Auscultation: normal bowel sounds Back/Spine/Pelvis Thoracic/Lumbar Spine: thoracic and lumbar spine normal to inspection Skin General skin exam: no rashes or lesions noted Neuro General: patient oriented x3 and no focal motor deficits Cranial nerves: Yes CN's II-XII intact bilaterally Extrem General: Yes normal to inspection, Yes no clubbing, cyanosis or edema and Yes no calf tenderness Psych Speech and movement: Normal speech and movement present Assessment & Plan Assessment & Plan (1) Asthma: Comment: THE CHRONIC COUGH IS MOST LIKELY ASTHMA VARIANT, CONTROLLED WITH CURRENT MEDICINE. ASTHMA/COUGH HAS BEEN FAIRLY STABLE. Code(s): J45.909 - Unspecified asthma, uncomplicated Category: Medical Plan: Continue using fluticasone-salmeterol 115-212 puffs, only once a day, but increased to b.i.d. if cough starts getting worse. Albuterol HFA 2 puffs Q 4-6 hours only p.r.n. for persistent cough or wheezing. (2) Cough: Comment: COUGH, ASTHMA VARIANT,CONTROLLED WITH USE OF FLUTICASONE/SALMETEROL . DOES IS REDUCED TO 115-21 2 PUFFS B.I.D.. HE IS USING THE HFA WITH THE HELP OF A SPACING DEVICE AND WORKS WELL . Code(s): R05.9 - Cough, unspecified Category: Medical Plan: As under asthma (3) MICHELE (obstructive sleep apnea): Comment: HE DOES HAVE CHRONIC OBSTRUCTIVE. SLEEP APNEA WHICH IS CONTROLLED WITH USE OF CPAP FOR THIS PROBLEM HE IS BEING FO[facility]ED UP [facility]. Code(s): G47.33 - Obstructive sleep apnea (adult) (pediatric) Category: Medical Plan: Continue to use CPAP regularly (4) Allergic rhinitis: Comment: HIS COUGH MAY ALSO BE CONTRIBUTED BY NASAL ALLERGY. Aat present there is no active rhinitis. he does have moderate hypertrophy of the turbinates but not any significant nasal obstruction Code(s): J30.9 - Allergic rhinitis, unspecified Category: Medical Plan: Use cetirizine 10 mg once a day p.r.n. Coding Level of Care Code Est Pt Level 3 (63416) Diagnoses Asthma J45.909 Cough R05.9 MICHELE (obstructive sleep apnea) G47.33 Allergic rhinitis J30.9
[2025-02-12 09:30] VITALS: BP 120/60; PULSE 72; O2SAT 95; BMI 35.4
--- OUTSIDE RECORDS SUMMARY | 2025-02-12 10:29 | XMS_ITS | Encounter Summary ---
Author Organization [employer] Address [address] [facility] 7 [place] [address] Care Team Providers Care Veneer Drier Name Role Phone Unavailable Primary Care Provider [...] Care Team (Late st Contact Info) Description 05/07/2025 11:00 AM EST Office Visit [facility] D[facility] [address] [place] [address] Flavia Henry documented as of this encounter Visit Diagnoses Not on filedocumented in this encounter
--- OUTSIDE RECORDS SUMMARY | 2025-02-12 10:29 | XMS_ITS | Encounter Summary ---
Author Organization [employer] Address [address] [place] [address] [address] [place] [address] Care Team Providers Care Heel Shaver Name Role Phone Unavailable Primary Care Provider [...] Description 05/07/2025 11:00 AM EST Office Visit [facility] [address] [place] [address] Flavia Henry documented as of this encounter Visit Diagnoses Not on filedocumented in this encounter
--- OUTSIDE RECORDS SUMMARY | 2025-02-12 10:30 | XMS_ITS | Encounter Summary ---
Author Organization [employer] Address [address] [facility] 7 [place] [address] Care Team Providers Care Glass Blowing Instructor Name Role Phone Unavailable Primary Care Provider [...] Description 05/07/2025 11:00 AM EST Office Visit [place] [facility] [address] [place] [address] Flavia Henry documented as of this encounter Visit Diagnoses Not on filedocumented in this encounter
--- OUTSIDE RECORDS SUMMARY | 2025-02-12 10:30 | XMS_ITS | Encounter Summary ---
Author Organization [email or web address] Address [address] [facility] 7 [place] [address] Care Team Providers Care Night Monitor Name Role Phone Unavailable Primary Care Provider [...] Description 05/07/2025 11:00 AM EST Office Visit [place] [facility] [address] [place] [address] Flavia Henry documented as of this encounter Visit Diagnoses Not on filedocumented in this encounter
--- OUTSIDE RECORDS SUMMARY | 2025-02-12 10:30 | XMS_ITS | Encounter Summary ---
Author Organization [employer] Address [address] [facility] 7 [place] [address] Care Team Providers Care Public Transit Trolley Driver Name Role Phone Unavailable Primary Care Provider [...] Description 05/07/2025 11:00 AM EST Office Visit [place] [facility] [address] [place] [address] Flavia Henry documented as of this encounter Visit Diagnoses Not on filedocumented in this encounter
--- OUTSIDE RECORDS SUMMARY | 2025-02-12 10:30 | XMS_ITS | Encounter Summary ---
Author Organization [email or web address] Address [address] [facility] [address] [place] [address] Care Team Providers Care Polisher And Buffer Name Role Phone Unavailable Primary Care Provider [...] Description 05/07/2025 11:00 AM EST Office Visit [facility] D[facility] [address] [place] [address] Flavia Henry documented as of this encounter Visit Diagnoses Not on filedocumented in this encounter
--- OUTSIDE RECORDS SUMMARY | 2025-02-12 10:30 | XMS_ITS | Clinical Summary ---
Author Organization [facility] Address [address] [facility] [address] [place] [address] Care Team Providers Care Market Development Manager Name Role Phone Unavailable Primary Care [...] Active Active Problems No known active problems Social History Tobacco Use Types Packs/Day Years [...] Description 05/07/2025 11:00 AM EST Office Visit [place] [facility] [address] [place] [address] Flavia Henry Health Maintenance Due Date Last Done Comments Depression Screening 1945 Lipid Panel 1945 SDOH Screening 1945 Alcohol/Substance Use Screening 1959 Hepatitis C Screening 12/07/1965 IPV Vaccines (2 of 3 - Adult catch-up series) 07/12/1978 06/14/1978 Hepatitis A Vaccines (2 of 2 - Risk 2-dose series) 02/20/2000 08/20/1999, 03/19/1999 Hepatitis B Vaccines (1 of 3 - Risk 3-dose series) 2007 RSV Patients and Patients Aged 60 years or older (1 - 1-dose 75+ series) 12/07/2022 COVID-19 Vaccine (5 - season) 2024 03/25/2021, 03/21/2021, 06/27/2020, Additional history exists Influenza Vaccine (#1) 2024 , 01/22/2024, 01/22/2023, Additional history exists Dental Oral Exam 01/31/2025 07/31/2024, , 02/23/2023, Additional history exists Dental Prophylaxis 01/31/2025 07/31/2024, 1 , 02/23/2023, Additional history exists Tobacco Screening 07/31/2025 07/31/2024 Dental X-Ray: Bitewings 08/01/2025 08/01/19 25, 02/23/2023, 12/29/2021, Additional history exists Dental X-Ray: Full Mouth 02/24/2026 023, 12/16/2015, 03/19/2008, Additional history exists DTaP/Tdap/Td Vaccines (3 - Td or Tdap) 12/14/2030 12/14/2020, 08/18/2010, 09/18/1998, Additional history exists Meningococcal Vaccine Aged Out 07/24/1999 No ashly sony eligible based on patient's age to complete this topic Pneumococcal Vaccine: 50+ Years Completed 09/09/2015, 03/26/2014, 09/30/2008 Zoster Vaccines Completed 10/06/2022, 0408/2022, 07/03/2022, Additional history exists HIB Vaccines Aged Out No longer eligi ble based on patient's age to complete this topic HPV Vaccines Aged Out No longer eligi ble based on patient's age to complete this topic Meningococcal B Vaccine Aged Out No l onger eligible based on patient's age to complete this topic RSV under 20 months Aged Out No longe r eligible based on patient's age to complete this topic Rotavirus Vaccines Aged Out No longer eligible based on patient's age to complete this topic Procedures Procedure Name Priority Date/Time Associated Diagnosis Comments Full PROPHYLAXIS - ADULT Routine 025 10:10 AM EDT BITEWINGS - 4 RADIOGRAPHIC IMAGES Routine 07/31/2024 10:10 AM EDT PERIODIC ORAL EVALUATION - ESTABLISHED PATIENT Routine 07/31/2024 10:10 AM EDT INTRAORAL - COMPLETE SERIES OF RADIOGRAPHIC IMAGES Routine 02/23/2023 10:30 AM EST from Last 3 Months or Most Recently Relevant to Health Maintenance Insurance [facility] FED[employer]
--- OUTSIDE RECORDS SUMMARY | 2025-02-12 10:30 | XMS_ITS | Encounter Summary ---
Author Organization [employer] Address [address] [facility] 7 [place] [address] Care Team Providers Care Erp Developer Name Role Phone Unavailable Primary Care Provider [...] Description 05/07/2025 11:00 AM EST Office Visit [place] [facility] D[facility] [address] [place] [address] Flavia Henry documented as of this encounter Visit Diagnoses Not on filedocumented in this encounter
== END 2025-02-12 09:40 | disposition home or self-care (01) ==
LOC: HO.HPS 09:17
PROVIDERS: PCP Internal Medicine; Visit Provider Internal Medicine
DX: J45.909 Unspecified asthma, uncomplicated (principal); R05.9 Cough, unspecified; G47.33 Obstructive sleep apnea (adult) (pediatric); J30.9 Allergic rhinitis, unspecified
CPT/HCPCS: 99213

== ENCOUNTER → 2025-02-12 09:16 | Outpatient (BNVA) | payer MEDICARE, OTHER, SELFPAY | PROVIDERS: PCP Internal Medicine; Visit Provider Internal Medicine | DX: J45.909 Unspecified asthma, uncomplicated (principal); R05.3 Chronic cough; R09.81 Nasal congestion; G47.33 Obstructive sleep apnea (adult) (pediatric); Z99.89 Dependence on other enabling machines and devices; Z79.899 Other long term (current) drug therapy | CPT/HCPCS: 99212 ==